=== PATIENT | male | born 1945 | race Hispanic/Latino ===

== ENCOUNTER 2024-11-06 14:32 | Inpatient (IN) | payer OTHER ==
[~2024-11-06] VITALS: Ht 172.7 cm; Wt 83.6 kg
--- NOTE | 2024-11-06 14:39 | ERN ---
ED Note History of Present Illness Stated Complaint: [facility] Chief Complaint: Hypotension Time Seen by MD: 14:36 Dictation: PATIENT IS AN 79-YEAR-OLD MALE COMING IN [facility] A [facility] WITH COMPLAINTS OF HYPOTENSION AND GENERALIZED BODY WEAKNESS. PER THE STAFF AT THE CLINIC, HE WALKED IN TO BE SEEN ON A ROUTINE EXAM WAS NOTED TO BE WEAK BLOOD PRESSURE WAS IN 80 SYSTOLIC. HE HAD NO FEVER NO CHILLS HE COMPLAINTS ONLY OF CHRONIC LOW BACK PAIN. PATIENT LOOKS FRAIL DEBILITATED OFFERS NO OTHER COMPLAINTS EXCEPT BACK PAIN. PARKINSONIAN SHAKES NOTED TO UPPER EXTREMITIES. PATIENT NOTED TO BE PALE Allergies: Coded Allergies: No Known Drug Allergies (Verified Allergy, 03/20/12) Past Medical History RN Note Reviewed/Agreed w/PFSH: Yes Review of System Dictation CONSTITUTIONAL: NEGATIVE EXCEPT FOR HPI GB W HEAD/FACE: NEGATIVE EXCEPT FOR HPI EENT: NEGATIVE EXCEPT FOR HPI RESPIRATORY: NEGATIVE EXCEPT FOR HPI GASTROINTESTINAL/ABDOMINAL: NEGATIVE EXCEPT FOR HPI GENITOURINARY: NEGATIVE EXCEPT FOR HPI MUSCULOSKELETAL: NEGATIVE EXCEPT FOR HPI INTEGUMENTARY: NEGATIVE EXCEPT FOR HPI NEUROLOGICAL/PSYCH: NEGATIVE EXCEPT FOR HPI HEMATOLOGIC/LYMPHATIC: NEGATIVE EXCEPT FOR HPI ALL SYSTEMS NEGATIVE, EXCEPT NOTED ABOVE. 13 POINT REVIEW OF SYSTEMS ASSESSED AND ALL NEGATIVE EXCEPT FOR ABOVE. Initial Vital Sign VS Vital Signs Date Time Temp Pulse Resp B/P (MAP) Pulse Ox O2 Delivery O2 Flow Rate FiO2 11/06/24 14:33 97.9 64 11 115/56 99 Room Air 0 11/06/24 15:21 21 Physical Exam Dictation VITAL SIGNS REVIEWED GENERAL APPEARANCE: ALERT, ORIENTED X 3, PATIENT APPEARS WEAK VERY DEBILITATED HEAD AND FACE: NON-TRAUMATIC. EYES: PERRL, PINK CONJUNCTIVAS, EYELID NO TRAUMA, ANTERIOR CHAMBER WITH ARCUS SENILIS. EARS: PINNAS INTACT AND NO SIGNS OF TRAUMA OR ERYTHEMA EAR CANALS CLEAR AND NO DISCHARGE TM NO ERYTHEMA NOSE: NO DISCHARGE, NO BLEEDING. OROPHARYNX: MOUTH NORMAL, TONGUE PALE, PHARYNX CLEAR,NO ERYTHEMA, TONSILS NO EXUDATES, NO ABSCESSES NOTED, MUCOUS MEMBRANE MOIST NECK: SUPPLE, NON-TENDER, NO THYROMEGALY, NO MASSES, NO JVD, NO BRUITS BREAST:DEFERRED CHEST:NO TENDERNESS, NO CREPITUS, NO PARADOXICAL MOVEMENT, NO RETRACTIONS LUNGS:CLEAR, WELL-VENTILATED, SYMMETRIC, NO RALES, NO WHEEZING, NO RHONCHI, NO STRIDOR, GOOD BREATH SOUNDS BILATERALLY HEART: REGULAR RATE, REGULAR RHYTHM, NO MURMUR, NO GALLOPS VASCULAR: NO PERIPHERAL EDEMA, ABDOMEN: SOFT, POSITIVE BOWEL SOUNDS, NONDISTENDED, NO GUARDING, NONTENDER, NO REBOUND, NO MASSES NO HEPATOMEGALY, NO SPLENOMEGALY, NO 'S SIGN, NO HERNIAS. RECTAL: DEFERRED GENITAL: DEFERRED NEUROLOGICAL: NORMAL SPEECH, MOTOR FUNCTION INTACT, SENSORY FUNCTION INTACT 4/+5 STRENGTH ALL EXTREMITIES MUSCULOSKELETAL: NECK NONTENDER, FULL RANGE OF MOTION, BACK NONTENDER, FULL RANGE OF MOTION, EXTREMITIES: NONTENDER, FULL RANGE OF MOTION SKIN: COLOR PINK, DRY, NO TURGOR, NO RASH, NO LACERATIONS, NO ABRASIONS, NO CONTUSIONS. LYMPHATIC: DEFERRED Results (Laboratory/Radiology) Laboratory/Radiology Laboratory Tests Test 11/06/24 14:58 White Blood Count 7.9 K/uL (4.8-10.8) Red Blood Count 3.67 MIL/uL (4.50-6.20) L Hemoglobin 12.0 g/dL (14.0-18.0) L Hematocrit 37.5 % (42-54) L Mean Corpuscular Volume 102.2 fL (79-99) H Mean Corpuscular Hemoglobin 32.7 pg (27.0-33.0) Mean Corpuscular Hemoglobin Concent 32.0 g/dL (32.0-36.0) Red Cell Distribution Width 15.0 % (11.0-15.5) Platelet Count 257 K/uL (130-400) Mean Platelet Volume 8.8 fL (7.5-10.5) Immature Granulocyte % (Auto) 1.4 % (0-1) H Neutrophils (%) (Auto) 86.0 % (40.0-77.0) H Lymphocytes (%) (Auto) 5.5 % (21.0-51.0) L Monocytes (%) (Auto) 4.8 % (3.0-13.0) Eosinophils (%) (Auto) 1.8 % (0.0-8.0) Basophils (%) (Auto) 0.5 % (0.0-5.0) Neutrophils # (Auto) 6.8 K/uL (1.8-7.7) Lymphocytes # (Auto) 0.4 K/uL (1.0-4.8) L Monocytes # (Auto) 0.4 K/uL (0.1-1.0) Eosinophils # (Auto) 0.14 K/uL (0.00-0.70) Basophils # (Auto) 0.04 K/uL (0.00-0.20) Absolute Immature Granulocyte (auto 0.11 K/uL (0-1) Nucleated Red Blood Cells 0.0 % (0.0-0.19) White Cell Morphology Comment See comments Sodium Level 144 mmol/L (136-145) Potassium Level 4.6 mmol/L (3.5-5.1) Chloride Level 110 mmol/L (101-111) Carbon Dioxide Level 24 mmol/L (21-32) Blood Urea Nitrogen 28 mg/dL (7-18) H Creatinine 1.3 mg/dL (0.5-1.3) Glomerular Filtration Rate Calc 56 mL/min (>90) Random Glucose 128 mg/dL (70-105) H Lactic Acid Level 2.2 mmol/L (0.8-2.5) Total Calcium 7.6 mg/dL (8.5-10.1) L Troponin I High Sensitivity 19 ng/L (4-75) CR Chest, 1 View. CLINICAL HISTORY: CHEST PAIN/SOB COMPARISON: X-ray chest 03/20/2012 FINDINGS: LUNGS: The lungs show no infiltrate or other acute finding. PLEURAL SPACES: No pleural effusion or pneumothorax. MEDIASTINUM: The cardiomediastinal silhouette is within normal limits. Changes of median sternotomy BONES: No aggressive appearing osseous lesion seen. IMPRESSION: No acute cardiopulmonary pathology is evident. /[place] Labs Reviewed?: Yes EKG Comment: 1446/EKG SINUS RHYTHM/HEART RATE 64/AXIS NORMAL EARLY REPOLARIZATION IN SEEN IN THE V2 V3 V4 V5 ED Course ED Course Orders Procedure Category Date Status Time Blood Cult MADGY 11/06/24 In Process 14:37 Lactic Acid LAB 11/06/24 Complete 14:37 Cbc With Differential LAB 11/06/24 Complete 14:37 Troponin I High LAB 11/06/24 Complete Sensitivity 14:37 Urinalysis Profile LAB 11/06/24 Logged 14:37 12 Lead Ekg Tracing- EKG 11/06/24 Logged Technical 14:37 0.9%Nacl 1000ml (Ns PHA 11/06/24 Complete 1000ml) 15:00 Basic Metabolic Panel LAB 11/06/24 Complete 14:37 Chest 1vw RAD 11/06/24 Resulted 14:37 Ceftriaxone 2gm Vial PHA 11/06/24 Complete (Rocephin 2gm Inj) 15:50 Calcium Gluc 1gm PHA 11/06/24 Complete (Calcium Gluc 1gm 17:18 0.9%Nacl 100ml (Ns PHA 11/06/24 Complete 100ml) 17:22 0.9%Nacl 1000ml (Ns PHA 11/06/24 Complete 1000ml) 18:00 Lactic Acid (Removed) LAB 11/06/24 Logged 18:13 Edm Admit Bridge Order ADM 11/06/24 Transmitted 18:17 Current Medications Medications (Trade) Dose Ordered Sig/Brodie Route PRN Reason Start Time Stop Time Status Last Admin Dose Admin Calcium Gluconate (Calcium Gluc 1gm Vial) 1 gm PROTOCOL STAT IVPB 11/06/24 17:18 11/06/24 17:23 DC Ceftriaxone Sodium (Rocephin 2gm Inj) 2 gm ONCE STAT IVPB 11/06/24 15:50 11/06/24 15:52 DC 11/06/24 16:06 Sodium Chloride 100 ml @ 0 mls/hr AD STAT IV 11/06/24 17:22 11/06/24 18:00 DC Sodium Chloride 1,000 ml @ 0 mls/hr ONCE ONCE IV 11/06/24 15:00 11/06/24 15:01 DC 11/06/24 15:15 Sodium Chloride 1,000 ml @ 0 mls/hr Q0M ONCE IV 11/06/24 18:00 11/06/24 18:01 DC Vital Signs Date Time Temp Pulse Resp B/P (MAP) Pulse Ox O2 Delivery O2 Flow Rate FiO2 11/06/24 15:21 98.1 63 19 110/48 99 Room Air* 0 21 11/06/24 14:33 97.9 64 11 115/56 99 Room Air 0 1715/SPOKE WITH PATIENT AND HIS DAUGHTER AT LENGTH REGARDING CLINICAL FINDINGS. THEY ARE AWARE THAT HE HAS GOT STAGE 3 KIDNEY DISEASE VERSUS ACUTE KIDNEY INJURY DEHYDRATION ANEMIA OF CHRONIC RENAL FAILURE AND LACTIC ACID DOSES. THEY ARE AGREEABLE HIM BE ADMITTED TO THE HOSPITAL URINE IS PENDING. ALL QUESTIONS [id number]/ 1820/SPOKE WITH MANUEL FAUSTINP HOSPITALIST REVIEWED EKG LABS AND INTERVENTIONS FOR LACTIC ACID DOSES TO INCLUDE FLUIDS AND ROCEPHIN. IN ADDITION SHE IS AWARE CALCIUM HAS BEEN REPLACED. SHE AGREED TO ADMIT PATIENT HEART Score Response (Comments) Value EKG: Repolarization changes 1 Age: > 65yrs (+2) 2 Risk Factors: 1-2 risk factors (+1) 1 Initial Troponin: Normal limit (0) 0 Total 4 Medical Decision Making MDM MDM: DIFFERENTIAL DIAGNOSIS: ACS/AMI/PNEUMONIA/BRONCHITIS/UTI/ELECTROLYTE IMBALANCE/DEHYDRATION/ARRHYTHMIA RATIONALE: TESTS CONSIDERED AND ORDERED SECONDARY TO SHARED DECISION MAKING INCLUDE: LABS, ECG AND RADIOLOGY PREVIOUS OUTSIDE RECORDS REVIEWED: OLD ER VISITS. RISK OF COMPLICATION AND/OR MORBIDITY OR MORTALITY OF PATIENT MANAGEMENT: NONE MEDICATIONS-PER MEDICATION RECONCILIATION NEED FOR HOSPITALIZATION: PATIENT DOES MEET CRITERIA FOR HOSPITALIZATION. LACTIC ACID DOSES REHYDRATION HEMODYNAMIC STABILIZATION NEED FOR EMERGENCY MAJOR/MINOR SURGERY: NO THERE ARE NO SOCIAL CONCERNS WITH THIS PATIENT. PRESCRIPTION DRUG MANAGEMENT PRESCRIPTIONS WILL INCLUDE SYMPTOMATIC CARE PATIENT'S PRIOR EXTERNAL MEDICAL RECORDS FROM OTHER ER VISITS WERE REVIEWED BY ME INDICATED. PRIOR TESTING AND RESULTS FROM PREVIOUS VISITS WERE REVIEWED. PRIOR TESTS WERE TAKEN INTO ACCOUNT WITH MEDICAL DECISION MAKING AND RESOURCE UTILIZATION, INDEPENDENT HISTORIAN/HISTORIANS WERE USED TO OBTAIN COMPLETE MEDICAL HISTORY. I INDEPENDENTLY INTERPRETED THE TEST THAT WERE PERFORMED, RESULTS WERE REVIEWED BY ME AND CONSIDERED FINDINGS ON RADIOLOGY IF ORDERED. MEDICAL MANAGEMENT AND EXAMINATION INTERPRETATION DISCUSSIONS WERE HAD BY ME WITH OTHER QUALIFIED HEALTHCARE PROFESSIONALS INDICATED FOR THE PATIENT'S CARE. DX & DISP Disposition: Inpatient Decision to Admit Time: 17:16 Departure Impression: Primary Impression: Acute kidney injury Additional Impressions: Anemia of chronic renal failure, stage 3a, Hypocalcemia, Hyperglycemia, Lactic acidosis, Prostate CA Condition: Stable Referrals: BHAVYA CHENG (PCP) Time of Disposition: 17:17 I have reviewed the case, and I agree with, Diagnosis and Plan BINTA GELLER NP Nov 06, 2024 14:39
[2024-11-06 15:06] LABS: IMMATURE GRANULOCYTE ABSOLUTE 0.11 K/uL (0-1); NUCLEATED RED BLOOD CELLS 0.0 % (0.0-0.19); PLATELET COUNT (AUTO) 257 K/uL (130-400); RED BLOOD CELL COUNT(AUTO) 3.67 MIL/uL (4.50-6.20); RED CELL DISTRIBUTION WIDTH 15.0 % (11.0-15.5); WHITE BLOOD COUNT (AUTO) 7.9 K/uL (4.8-10.8)
[2024-11-06] MEDS: 0.9%NACL 1000ML 1,000 ML IV ONE ×2 (15:15→18:53)
[2024-11-06 15:20] LABS: CREATININE 1.3 mg/dL (0.5-1.3); GLOMERULAR FILTR. RATE CALC 56.0 mL/min (>90); GLUCOSE,RANDOM 128.0 mg/dL (70-105); SODIUM SERUM 144.0 mmol/L (136-145); UREA NITROGEN, BLOOD 28.0 mg/dL (7-18)
--- NOTE | 2024-11-06 15:56 | HMCIMG ---
EXAM: CR Chest, 1 View. CLINICAL HISTORY: CHEST PAIN/SOB COMPARISON: X-ray chest 03/20/2012 FINDINGS: LUNGS: The lungs show no infiltrate or other acute finding. PLEURAL SPACES: No pleural effusion or pneumothorax. MEDIASTINUM: The cardiomediastinal silhouette is within normal limits. Changes of median sternotomy BONES: No aggressive appearing osseous lesion seen. IMPRESSION: No acute cardiopulmonary pathology is evident. /[place]
[2024-11-06] MEDS ORDERED: 0.9%NACL 100ML 100 ML IV STA (17:22)
--- NOTE | 2024-11-06 19:30 | HP ---
[facility] HISTORY AND PHYSICAL Date of Service: Nov 06, 2024 Time of Service: 18:56 PCP: Alvarez Olea HISTORY OF PRESENT ILLNESS: This is an 79 year old male past medical history of hypertension, hyperlipidemia, prostate cancer with past surgical history of back surgery times X3, right eye artificial implant and AVR who was brought by EMS coming from [facility] for complaints of hypotension and generalized body weakness. Daughter was at bedside during my evaluation and states that patient has been doing fine and had a follow-up appointment yesterday at the [facility] and today he has another appointment with his primary care doctor at the [facility] and for the past two days patient has been getting up early in the morning not get much rest as per daughter. Today while at the [facility] for routine checkup his systolic blood pressure was in the 80s and patient appeared weak so he was sent to the ED for evaluation.On ER arrival ECG was taken and result showed sinus rhythm HR64 with repolarization abnormalities suggests Ischemia anterolateral .V/S T97.9,HR64,BP115/56,Sat 99%RA. On examination,patient is awake,alert and coherent and appears comfortable .Patient denies fever,nausea,vomiting,dizziness,chest pain,palpitation,cough and shortness of breath.As per daughter ,patient has a good appetite and drinking fluid as well but because of his medication that he is taking for his cancer ,he has been having hot flushes and sweating a lot she said and has been told that it is an expected side effect of his drug as per Onco.Patient also reports being constipated because of his pain meds for his chronic back pain and last BM was 3 days ago and it was a normal in color.Patient denies Kidney problem before.Labs : WBC 7, neutrophils 86, hemoglobin 12, hematocrit 37, platelet count 257. BUN 28, creatinine 1.3, GFR 56, glucose 128 lactic acid 2.2 troponin 19. Chest x- ray no acute cardiopulmonary pathology is evident. While in the ER patient received 2 L NS bolus bolus, Rocephin 2 g IV, calcium replacement of 1 g IV. We will admit patient for further medical management. Without REVIEW OF SYSTEMS CONSTITUTIONAL: Denies fevers, chills, or night sweats. No unintentional weight loss reported. NEUROLOGICAL: Complain of generalized body weakness Denies headache, amaurosis fugax,sensory deficit, vertigo/spinning sensation, gait abnormalities, or lyric mors. ENT: No hearing loss, otalgia, otorrhea, rhinitis, rhinorrhea, hoarseness, or sore throat. CARDIOVASCULAR: Denies any exertional angina, dyspnea on exertion, orthopnea, paroxysmal nocturnal dyspnea, palpitations, life-threatening arrhythmias, claudication. PULMONARY: Denies any shortness of breath, cough, phlegm/sputum, hemoptysis, pleuritic chest pain. SLEEP: Denies morning headaches, daytime somnolence or napping. Denies difficulty falling asleep, staying asleep, waking from sleep. Denies knowledge of snoring. GASTROINTESTINAL: Denies any type of dysphagia to either liquids or solids. Denies nausea, vomiting, pyrosis, early satiety, abdominal pain, diarrhea, constipation, or changes in stool consistency or caliber. Denies coffee-ground emesis, hematemesis, hematochezia, or melanotic stools. GENITOURINARY: Denies frequency, urgency, nocturia, hematuria or incontinence (Storage/Irritative symptoms.) Low urinary stream, straining to void, urinary intermittency or hesitancy, splitting of the voiding stream, terminal dribbling. ENDOCRINOLOGIC: Denies polyuria, polydipsia, polyphagia or heat/cold intolerances. HEMATOLOGIC: Denies thrombophilia/previous clots, or coagulopathy/bleeding disorders. ONCOLOGIC: Denies personal history of malignancy. DERMATOLOGIC: Denies rashes or pruritus. PSYCHIATRIC: Denies any suicidal or homicidal ideation. Denies hallucinations. PAST MEDICAL HISTORY: [ hypertension, hyperlipidemia, prostate cancer ] PAST SURGICAL HISTORY: [ back surgery times X3, right eye artificial implant and AVR ] PAST SOCIAL HISTORY: [ Patient lives with and daughter.Patient reports was a former heavy smoker and alcohol drinker quits 20 years ago.Patient denies recreational drug use ] Coded Allergies: No Known Drug Allergies (Verified Allergy, 03/20/12) PHYSICAL EXAM GENERAL APPEARANCE: The patient is awake, alert, and oriented, in no acute cardiopulmonary distress. NEUROLOGICAL: Cranial nerves II-XII grossly intact. Motor is 5/5 in bilateral upper and lower extremities proximal to distal. No sensory deficits. HEENT: Face is symmetric. Extraocular movement is intact. NECK: Supple. No JVD. No thyromegaly. No submental, submandibular, pre- /postauricular, occipital or supraclavicular lymphadenopathy. CHEST: Normal chest expansion. No Telemetry. LUNGS: Absence of any rales, rhonchi or any wheezing. CARDIOVASCULAR: Regular. S1 and S2 normal. No appreciable rubs, murmurs or gallops. ABDOMEN: Soft, nontender, and nondistended. There is no rebound, voluntary guarding, or rigidity. : Deferred. No Robles. EXTREMITIES: Non-edematous and not cyanotic. No clubbing. Good capillary refill. SKIN: No skin breakdown. Vital Sign (Last 24 Hours) 11/06/24 15:21 Temp 98.1 Pulse 63 Resp 19 B/P (MAP) 110/48 Pulse Ox 99 O2 Delivery Room Air* O2 Flow Rate 0 FiO2 21 LABS: Laboratory: Test 11/06/24 14:58 Range/Units White Blood Count 7.9 4.8-10.8 K/uL Red Blood Count 3.67 L 4.50-6.20 MIL/uL Hemoglobin 12.0 L 14.0-18.0 g/dL Hematocrit 37.5 L 42-54 % Mean Corpuscular Volume 102.2 H 79-99 fL Mean Corpuscular Hemoglobin 32.7 27.0-33.0 pg Mean Corpuscular Hemoglobin Concent 32.0 32.0-36.0 g/dL Red Cell Distribution Width 15.0 11.0-15.5 % Platelet Count 257 130-400 K/uL Mean Platelet Volume 8.8 7.5-10.5 fL Immature Granulocyte % (Auto) 1.4 H 0-1 % Neutrophils (%) (Auto) 86.0 H 40.0-77.0 % Lymphocytes (%) (Auto) 5.5 L 21.0-51.0 % Monocytes (%) (Auto) 4.8 3.0-13.0 % Eosinophils (%) (Auto) 1.8 0.0-8.0 % Basophils (%) (Auto) 0.5 0.0-5.0 % Neutrophils # (Auto) 6.8 1.8-7.7 K/uL Lymphocytes # (Auto) 0.4 L 1.0-4.8 K/uL Monocytes # (Auto) 0.4 0.1-1.0 K/uL Eosinophils # (Auto) 0.14 0.00-0.70 K/uL Basophils # (Auto) 0.04 0.00-0.20 K/uL Absolute Immature Granulocyte (auto 0.11 0-1 K/uL Nucleated Red Blood Cells 0.0 0.0-0.19 % White Cell Morphology Comment See comments Sodium Level 144 136-145 mmol/L Potassium Level 4.6 3.5-5.1 mmol/L Chloride Level 110 101-111 mmol/L Carbon Dioxide Level 24 21-32 mmol/L Blood Urea Nitrogen 28 H 7-18 mg/dL Creatinine 1.3 0.5-1.3 mg/dL Glomerular Filtration Rate Calc 56 >90 mL/min Random Glucose 128 H 70-105 mg/dL Lactic Acid Level 2.2 0.8-2.5 mmol/L Total Calcium 7.6 L 8.5-10.1 mg/dL Troponin I High Sensitivity 19 4-75 ng/L Current Medications Medications (Trade) Dose Ordered Sig/Brodie Route PRN Reason Start Time Stop Time Status Last Admin Dose Admin Calcium Gluconate (Calcium Gluc 1gm Vial) 1 gm PROTOCOL STAT IVPB 11/06/24 17:18 11/06/24 17:23 DC Ceftriaxone Sodium (Rocephin 2gm Inj) 2 gm ONCE STAT IVPB 11/06/24 15:50 11/06/24 15:52 DC 11/06/24 16:06 2 GM Sodium Chloride 100 ml @ 0 mls/hr AD STAT IV 11/06/24 17:22 11/06/24 18:00 DC DIAGNOSTICS / RADIOLOGY: [ ] ASSESSMENT: Acute kidney injury POA Acute anemia POA Transient hypotension-improved POA Prostate cancer POA Right eye artificial implant POA Hyperlipidemia POA Hypertension POA Chronic back pain with surgeries x3 POA Aortic valve replacement POA Constipation POA PLAN: We will admit patient in medical telemetry We will start on heart healthy diet We will start LR @ 75 ml / hr x2 bags and re evaluate Continue Rocephin 1 gram IV daily for empiric coverage We will start on Protonix 40 mg IV daily for GI prophylaxis We will replace electrolytes as needed per protocol We will add prn medication for fever,pain,constipation, nausea and vomiting We will reconcile home meds once medlist available We will check fecal occult blood Follow up U/A and blood culture result and re evaluate ABT Will check orthostatic V/S Q shift x2 We will request labs in am Further orders to follow depending on above results Case discussed with attending physician and came up with above treatment and plan of care. ADVANCED CARE PLANNING 1. Which of the following were discussed? Hospice Care - No Therapeutic options - Yes Advance Directives - No Other discussions - 2. Discussed with who? Patient and daughter 3. Voluntary nature of this service was explained to the patient? Yes 4. Amount of time spent - ___23 min____ 5. Reviewed by Physician? (if this service was performed by NPP) Yes Patient seen and examined by me. Agree with note by ENGINEERING TECH SEE ADDITIONAL ORDERS PER CHART DISCUSSED WITH NURSING STAFF KAMI DUEÑAS [employer] MECHANIC Nov 06, 2024 19:30
[2024-11-06] MEDS: CALCIUM GLUC 1GM/10ML VIAL IVPB STA ×2 (20:13→20:23)
[2024-11-06] MEDS: LACTATED RINGERS 1000ML 1,000 ML IV SCH (21:30)
[2024-11-06 21:53] LABS: ADD UA MICROSCOPIC YES; APPEARANCE,URINE CLOUDY (CLEAR); GLUCOSE, URINE (UA) NEGATIVE (NEGATIVE); LEUKOCYTE ESTERASE ,URINE NEGATIVE Leu/uL (NEGATIVE); NITRATE,URINE NEGATIVE (NEGATIVE); OCCULT BLOOD,URINE MODERATE (NEGATIVE)
[2024-11-06 21:56] LABS: UNCLASSIFIED CRYSTAL 8 /HPF (None Seen)
--- NOTE | 2024-11-06 23:18 | EKG ---
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
[2024-11-07] MEDS ORDERED: TAMS-55 PO (02:08)
[2024-11-07] MEDS ORDERED: DOCU100C33 PO (02:08)
[2024-11-07] MEDS ORDERED: MELA1TAB16 PO (02:08)
[2024-11-07] MEDS ORDERED: LINA290C PO (02:08)
[2024-11-07] MEDS ORDERED: BUSP10TA3 PO (02:08)
[2024-11-07] MEDS ORDERED: OMEP20CA12 PO (02:08)
[2024-11-07] MEDS ORDERED: RAMI10CA76 PO (02:08)
[2024-11-07] MEDS ORDERED: LORA2ORA5 PO (02:30)
[2024-11-07] MEDS ORDERED: HYDR-4060 PO (02:30)
[2024-11-07] MEDS ORDERED: FLUO20TA29 PO (02:30)
[2024-11-07] MEDS ORDERED: CLOP75TA32 PO (02:30)
[2024-11-07] MEDS ORDERED: MIRT-93 PO (02:30)
[2024-11-07] MEDS ORDERED: METO-409 PO (02:30)
[2024-11-07] MEDS ORDERED: ATOR40TA71 PO (02:30)
[2024-11-07] MEDS ORDERED: PRED5TAB PO (02:30)
[2024-11-07] MEDS ORDERED: MORP15TA70 PO (02:30)
[2024-11-07] MEDS ORDERED: FLUO40CA49 PO (02:30)
[2024-11-07] MEDS ORDERED: SENN8.6T32 PO (02:30)
[2024-11-07] MEDS ORDERED: ISOS-58 PO (02:30)
[2024-11-07 05:40] LABS: IMMATURE GRANULOCYTE ABSOLUTE 0.23 K/uL (0-1); NUCLEATED RED BLOOD CELLS 0.0 % (0.0-0.19); PLATELET COUNT (AUTO) 247 K/uL (130-400); RED BLOOD CELL COUNT(AUTO) 3.54 MIL/uL (4.50-6.20); RED CELL DISTRIBUTION WIDTH 14.9 % (11.0-15.5); WHITE BLOOD COUNT (AUTO) 8.7 K/uL (4.8-10.8)
[2024-11-07 06:05] LABS: % IRON SATURATION 27.7 % (30-44); IRON, SERUM 51.0 mcg/dL (65-175)
[2024-11-07 06:15] LABS: TROPONIN I HIGH SENSITIVITY 26.0 ng/L (4-75)
[2024-11-07 06:20] LABS: ASPARTATE AMINOTRANSFERASE 24.0 U/L (10-37); CREATINE KINASE, TOTAL 51.0 U/L (21-232); CREATININE 1.1 mg/dL (0.5-1.3); GLOMERULAR FILTR. RATE CALC 68.0 mL/min (>90); GLUCOSE,RANDOM 81.0 mg/dL (70-105); SODIUM SERUM 144.0 mmol/L (136-145); TOTAL PROTEIN, SERUM 5.7 g/dL (6.0-8.3); UREA NITROGEN, BLOOD 18.0 mg/dL (7-18)
--- NOTE | 2024-11-07 06:43 | NUR ---
CRITICAL LAB RESULT ALK PHOS [id number] REPORTED BY LAB. HOSPITALIST PAGED AT THIS TIME, PENDING CALL BACK
[2024-11-07 08:36] LABS: GAMMA GLUTAMYL TRANSFERASE 18.0 U/L (5-85); PHOSPHORUS 2.7 mg/dL (2.5-4.9)
[2024-11-07 09:32] VITALS: O2SAT 97
[2024-11-07] MEDS ORDERED: MORP15TA9 PO (12:48)
[2024-11-07] MEDS ORDERED: ISOSORBIDE MONONITRATE 20 MG TABLET PO SCH (14:00)
[2024-11-07] MEDS: LISINOPRIL 20 MG TABLET PO SCH (14:07)
[2024-11-07] MEDS: HYDROcodone/APAP 5/325 1 TAB TABLET PO PRN (14:20)
[2024-11-07] MEDS: ISOSORBIDE MONONITRATE 20 MG TABLET PO SCH (14:21)
--- NOTE | 2024-11-07 16:15 | NUR ---
DCP:HOME met with daughter Bettina Dwyre [phone] who was at bedside. Pt currently lives at home with his and daughter. Pt has a wheelchair, walker, cane, commode, and hospital bed at home. Pt's daughter states that she is the pt's 30/08 caregiver that is paid for by the [facility]. PCP is Dr. Pino and uses the [facility] for any RX needs. At DC pt will want to go home and family can assist with transportation. Addendum: 11/07/24 at 1617 by PAULINE PURI SS Amended: Links added.
--- NOTE | 2024-11-07 18:18 | PN ---
[facility] PROGRESS NOTE Date of Service: Nov 07, 2024 Time of Service: 18:03 SUBJECTIVE: This is an 79 year old male past medical history of hypertension, hyperlipidemia, prostate cancer with past surgical history of back surgery times X3, right eye artificial implant and AVR who was brought by EMS coming from [facility] for complaints of hypotension and generalized body weakness. Erin jeimy was at bedside during my evaluation and states that patient has been doing fine and had a follow-up appointment yesterday at the [facility] and today he has another appointment with his primary care doctor at the [facility] and for the past two days patient has been getting up early in the morning not get much rest as per daughter. Today while at the [facility] for routine checkup his systolic blood pressure was in the 80s and patient appeared weak so he was sent to the ED for evaluation.On ER arrival ECG was taken and result showed sinus rhythm HR64 with repolarization abnormalities suggests Ischemia anterolateral .V/S T97.9,HR64,BP115/56,Sat 99%RA. On examination,patient is awake,alert and coherent and appears comfortable .Patient denies fever,nausea,vomiting,dizziness,chest pain,palpitation,cough and shortness of breath.As per daughter ,patient has a good appetite and drinking f luid as well but because of his medication that he is taking for his cancer ,he has been having hot flushes and sweating a lot she said and has been told that it is an expected side effect of his drug as per On[facility].Patient also reports being constipated because of his pain meds for his chronic back pain and last BM was 3 days ago and it was a normal in color.Patient denies Kidney problem before.Labs : WBC 7, neutrophils 86, hemoglobin 12, hematocrit 37, platelet count 257. BUN 28, creatinine 1.3, GFR 56, glucose 128 lactic acid 2.2 troponin 19. Chest x- ray no acute cardiopulmonary pathology is evident. While in the ER patient rece ived 2 L NS bolus bolus, Rocephin 2 g IV, calcium replacement of 1 g IV. The patient is admitted for further management. 11/07/2024: Patient is seen and evaluated in the ER. He complained of pain. His vitals signs are in the normal range. His labs are normal except for Hb is 12.5, HCT is 36 MCV is 101.7, chloride is 112, iron is 51, TIBC 184, %saturation is 27.7 ALP is 1107. We resumed his home meds. Narco is added which relieved the pain. We will continue to monitor his blood pressure and we are also planning to discharge him tomorrow. REVIEW OF SYSTEMS CONSTITUTIONAL: Denies fevers, chills, or night sweats. No unintentional weight loss reported. NEUROLOGICAL: Complain of generalized body weakness Denies headache, amaurosis fugax,sensory deficit, vertigo/spinning sensation, gait abnormalities, or tremors. ENT: No hearing loss, otalgia, otorrhea, rhinitis, rhinorrhea, hoarseness, or sore throat. CARDIOVASCULAR: Denies any exertional angina, dyspnea on exertion, orthopnea, paroxysmal nocturnal dyspnea, palpitations, life-threatening arrhythmias, claudication. PULMONARY: Denies any shortness of breath, cough, phlegm/sputum, hemoptysis, pleuritic chest pain. SLEEP: Denies morning headaches, daytime somnolence or napping. Denies difficulty falling asleep, staying asleep, waking from sleep. Denies knowledge of snoring. GASTROINTESTINAL: Denies any type of dysphagia to either liquids or solids. Denies nausea, vomiting, pyrosis, early satiety, abdominal pain, diarrhea, constipation, or changes in stool consistency or caliber. Denies coffee-ground emesis, hematemesis, hematochezia, or melanotic stools. GENITOURINARY: Denies frequency, urgency, nocturia, hematuria or incontinence (Storage/Irritative symptoms.) Low urinary stream, straining to void, urinary intermittency or hesitancy, splitting of the voiding stream, terminal dribbling. ENDOCRINOLOGIC: Denies polyuria, polydipsia, polyphagia or heat/cold intolerances. HEMATOLOGIC: Denies thrombophilia/previous clots, or coagulopathy/bleeding disorders. ONCOLOGIC: Denies personal history of malignancy. DERMATOLOGIC: Denies rashes or pruritus. PSYCHIATRIC: Denies any suicidal or homicidal ideation. Denies hallucinations. PHYSICAL EXAM GENERAL APPEARANCE: The patient is awake, alert, and oriented, in no acute cardiopulmonary distress. NEUROLOGICAL: Cranial nerves II-XII grossly intact. Motor is 5/5 in bilateral upper and lower extremities proximal to distal. No sensory deficits. HEENT: Face is symmetric. Extraocular movement is intact. NECK: Supple. No JVD. No thyromegaly. No submental, submandibular, pre- /postauricular, occipital or supraclavicular lymphadenopathy. CHEST: Normal chest expansion. No Telemetry. LUNGS: Absence of any rales, rhonchi or any wheezing. CARDIOVASCULAR: Regular. S1 and S2 normal. No appreciable rubs, murmurs or gallops. ABDOMEN: Soft, nontender, and nondistended. There is no rebound, voluntary guarding, or rigidity. : Deferred. No Robles. EXTREMITIES: Non-edematous and not cyanotic. No clubbing. Good capillary refill. SKIN: No skin breakdown. Vital Signs (last 8hr) Date Time Temp Pulse Resp B/P (MAP) Pulse Ox O2 Delivery O2 Flow Rate FiO2 11/07/24 15:49 98.2 80 13 118/56 96 Room Air* 0 21 11/07/24 12:00 63 14 176/60 97 Room Air* 0 21 LABS: Laboratory: Test 11/07/24 05:17 11/06/24 21:45 11/06/24 14:58 Range/Units White Blood Count 8.7 4.8-10.8 K/uL Red Blood Count 3.54 L 4.50-6.20 MIL/uL Hemoglobin 11.5 L 14.0-18.0 g/dL Hematocrit 36.0 L 42-54 % Mean Corpuscular Volume 101.7 H 79-99 fL Mean Corpuscular Hemoglobin 32.5 27.0-33.0 pg Mean Corpuscular Hemoglobin Concent 31.9 L 32.0-36.0 g/dL Red Cell Distribution Width 14.9 11.0-15.5 % Platelet Count 247 130-400 K/uL Mean Platelet Volume 9.1 7.5-10.5 fL Immature Granulocyte % (Auto) 2.6 H 0-1 % Neutrophils (%) (Auto) 82.3 H 40.0-77.0 % Lymphocytes (%) (Auto) 7.8 L 21.0-51.0 % Monocytes (%) (Auto) 5.3 3.0-13.0 % Eosinophils (%) (Auto) 1.4 0.0-8.0 % Basophils (%) (Auto) 0.6 0.0-5.0 % Neutrophils # (Auto) 7.2 1.8-7.7 K/uL Lymphocytes # (Auto) 0.7 L 1.0-4.8 K/uL Monocytes # (Auto) 0.5 0.1-1.0 K/uL Eosinophils # (Auto) 0.12 0.00-0.70 K/uL Basophils # (Auto) 0.05 0.00-0.20 K/uL Absolute Immature Granulocyte (auto 0.23 0-1 K/uL Nucleated Red Blood Cells 0.0 0.0-0.19 % Sodium Level 144 136-145 mmol/L Potassium Level 4.4 3.5-5.1 mmol/L Chloride Level 112 H 101-111 mmol/L Carbon Dioxide Level 22 21-32 mmol/L Blood Urea Nitrogen 18 7-18 mg/dL Creatinine 1.1 0.5-1.3 mg/dL Glomerular Filtration Rate Calc 68 >90 mL/min Random Glucose 81 70-105 mg/dL Lactic Acid Level 1.9 0.8-2.5 mmol/L Total Calcium 7.4 L 8.5-10.1 mg/dL Phosphorus Level 2.7 2.5-4.9 mg/dL Magnesium Level 2.20 1.80-2.40 mg/dL Iron Level 51 L 65-175 mcg/dL Total Iron Binding Capacity 184 L 250-450 mcg/dL Percent Iron Saturation 27.7 L 30-44 % Total Bilirubin 0.4 0.2-1.0 mg/dL Gamma Glutamyl Transpeptidase 18 5-85 U/L Aspartate Amino Transf (AST/SGOT) 24 10-37 U/L Alanine Aminotransferase (ALT/SGPT) 13 12-78 U/L Alkaline Phosphatase 1107 *H 50-136 U/L Total Creatine Kinase 51 21-232 U/L Troponin I High Sensitivity 26 4-75 ng/L Total Protein 5.7 L 6.0-8.3 g/dL Albumin 2.5 L 3.5-5.0 g/dL Vitamin D 25-Hydroxy 20.4 30.0-100.0 ng/mL Urine Color LIGHT-YELLOW YELLOW Urine Appearance CLOUDY H CLEAR Urine pH 5.0 5.0-8.0 Urine Specific Melvin 1.014 1.001-1.031 Urine Protein 10 H NEGATIVE mg/dL Urine Glucose (UA) NEGATIVE NEGATIVE mg/dL Urine Ketones NEGATIVE NEGATIVE mg/dL Urine Occult Blood MODERATE H NEGATIVE Urine Nitrate NEGATIVE NEGATIVE Urine Bilirubin NEGATIVE NEGATIVE mg/dL Urine Urobilinogen 0.2 0.2-1.0 mg/dL Urine Leukocyte Esterase NEGATIVE NEGATIVE [place]/uL Urine RBC 51-100 H 0-1 /HPF Urine WBC 2-5 H 0-1 /HPF Urine Other Crystals (Auto) 8 None Seen /HPF Urine Bacteria RARE None Seen /HPF White Cell Morphology Comment See comments Current Medications Medications (Trade) Dose Ordered Sig/Brodie Route PRN Reason Start Time Stop Time Status Last Admin Dose Admin Acetaminophen/ Hydrocodone Bitart (NORco 5/325MG) 1 tab Q6H PRN PO MODERATE PAIN (4-6) 11/07/24 12:30 11/12/24 12:29 11/07/24 14:20 1 TAB Atorvastatin Calcium (LIPItor 40MG) 40 mg DAILY PO 11/08/24 09:00 12/08/24 08:59 Buspirone HCl (BUspar) 10 mg QID PO 11/07/24 13:00 12/07/24 12:59 11/07/24 14:07 10 MG Calcium Gluconate (Calcium Gluc 1gm Vial) 1 gm PROTOCOL STAT IVPB 11/06/24 17:18 11/06/24 17:23 DC Calcium Gluconate (Calcium Gluc 1gm Vial) 1 gm PROTOCOL STAT IVPB 11/06/24 20:10 11/06/24 20:12 DC 11/06/24 20:23 1 GM Ceftriaxone Sodium (ROCEphine 1G INJ) 1 gm Q24H IVPB 11/07/24 09:00 11/17/24 08:59 11/07/24 10:37 1 GM Ceftriaxone Sodium (Rocephin 2gm Inj) 2 gm ONCE STAT IVPB 11/06/24 15:50 11/06/24 15:52 DC 11/06/24 16:06 2 GM Clopidogrel Bisulfate (plaVIX 75MG) 75 mg DAILY PO 11/08/24 09:00 12/08/24 08:59 Fluoxetine HCl (FLUoxetine HCL 20 MG CAPSULE) 20 mg HS PO 11/07/24 21:00 12/07/24 20:59 Fluoxetine HCl (FLUoxetine HCL 20 MG CAPSULE) 40 mg DAILY PO 11/08/24 09:00 12/08/24 08:59 Home Med (Home Medication) (Melatonin/ Pyridoxine (Melato... HS PO 11/07/24 21:00 12/07/24 20:59 Isosorbide Mononitrate (Ismo) 60 mg AM PO 11/07/24 14:00 12/07/24 13:59 11/07/24 14:21 60 MG Isosorbide Mononitrate (Ismo) 60 mg Q24H PO 11/07/24 14:00 11/07/24 13:54 DC Lactated Ringer's 1,000 ml @ 75 mls/hr [id number] IV 11/06/24 19:30 12/06/24 19:29 11/07/24 10:37 75 MLS/HR Lactulose (Constulose 20gm/ 30ml Udcup) 20 gm BID PRN PO CONSTIPATION 11/06/24 19:30 12/06/24 19:29 Lisinopril (Prinivil 20mg) 20 mg Q24H PO 11/07/24 14:00 12/07/24 13:59 11/07/24 14:07 20 MG Lorazepam (AtiVAN) 0.5 mg HS PO 11/07/24 21:00 12/07/24 20:59 Metoprolol Succinate (TopROL XL) 100 mg Q24H PO 11/07/24 14:00 12/07/24 13:59 11/07/24 14:07 100 MG Mirtazapine (REMeron 15 MG TAB) 30 mg HS PO 11/07/24 21:00 12/07/24 20:59 Morphine Sulfate (MS CONtin 15MG) 15 mg Q12H PRN PO SEVERE PAIN (7-10) 11/07/24 13:00 11/12/24 12:59 Morphine Sulfate (morPHINE 15MG IR TAB) 15 mg [id number] PRN PO pain 11/07/24 11:00 11/07/24 12:39 DC Ondansetron HCl (zoFRAN 4MG INJ) 4 mg Q6H PRN IV NAUSEA/VOMITING 11/06/24 19:30 12/06/24 19:29 Pantoprazole Sodium (PROTonix 40MG INJ) 40 mg DAILY IVP 11/07/24 09:00 12/07/24 08:59 11/07/24 10:37 40 MG Prednisone (deltaSONE/ oraSONE 5MG) 5 mg DAILY PO 11/08/24 09:00 12/08/24 08:59 Sodium Chloride 100 ml @ 0 mls/hr AD STAT IV 11/06/24 17:22 11/06/24 18:00 DC Tamsulosin HCl (FloMAX) 0.4 mg HS PO 11/07/24 21:00 12/07/24 20:59 DIAGNOSTICS / RADIOLOGY: [facility] [address] [place] [id number] IMAGING REPORT Signed PATIENT: JEANINE VILLALTA MR#: [id number] : 1945 SEX: M AGE: 79 LOCATION: [facility] ORDER 37 STATUS: REG REPORT#: [id number] SERVICE 36 REASON: CHEST PAIN/SOB ORDERING PHYSICIAN: BINTA GELLER NP PROCEDURE: CXR1VW - CHEST 1VW EXAM: CR Chest, 1 View. CLINICAL HISTORY: CHEST PAIN/SOB COMPARISON: X-ray chest 03/20/2012 FINDINGS: LUNGS: The lungs show no infiltrate or other acute finding. PLEURAL SPACES: No pleural effusion or pneumothorax. MEDIASTINUM: The cardiomediastinal silhouette is within normal limits. Changes of median sternotomy BONES: No aggressive appearing osseous lesion seen. IMPRESSION: No acute cardiopulmonary pathology is evident. /[place] DICTATED BY: PAULINE ARANA MD DATE: 11/06/241655 ELECTRONICALLY SIGNED BY: PAULINE ARANA MD DATE: 11/06/241655 ASSESSMENT: Acute kidney injury POA Normocytic normochromic anemia POA Hypertension POA Transient hypotension-improved POA Hyperlipidemia POA Prostate cancer POA Chronic back pain with surgeries x3 POA Aortic valve replacement POA Constipation POA Right eye artificial implant POA PLAN: Acute kidney injury POA His blood work show that the BUN is 18 and creatinine is 1.1. Will repeat his labs tomorrow. Normocytic normochromic anemia POA His blood work show that Hb is 11.5, HCT is 36, MCV is 101.7, RDW is 14.9 Iron panel show iron 51, TIBC is 184, % saturation is 27.7. Will repeat his labs tomorrow. Hypertension POA Transient hypotension-improved POA Today his blood pressure is 118/56. He is not having any symptoms. Continue isosorbide dinitrate, metoprolol, lisinopril. Will monitor his blood pressure. We are planning to discharge him tomorrow. Hyperlipidemia POA Continue Atorvastatin and clopidogrel. Prostate cancer POA Chronic back pain with surgeries x3 POA He complained of pain. His pain is controlled with narco. His ALP is 1107. Will repeat his labs tomorrow. Constipation POA Continue lactulose PRN. He is on heart healthy diet. GI prophylaxis with pantoprazole. DVT prophylaxis with SCD. ATTESTATION BY PHYSICIAN I have seen and examined the patient. I reviewed the documentation, medical decision making, and treatment plan as noted by the resident provider above. I agree with the findings and plan of care. Manav Portillo IV, MD, AKSHAY MD Nov 07, 2024 18:18
[2024-11-07 20:08] VITALS: BP 136/56; PULSE 74; RESP 15; TEMP 98.4
[2024-11-07] MEDS: (Melatonin/Pyridoxine (Melatonin 5 mg Tablet) 1 EACH) PO SCH (20:21)
[2024-11-07 21:30] VITALS: BP 164/68; PULSE 69; RESP 17; TEMP 98.3
[2024-11-07 21:58] VITALS: O2SAT 96
[2024-11-07 23:12] VITALS: BP 165/63; PULSE 61; RESP 18; TEMP 98.2
[2024-11-08] VITALS (7 sets, daily range): BP systolic 107–165; BP diastolic 54–75; PULSE 62–76; RESP 16–20; TEMP 97.9–98.7; O2SAT 96–98
[2024-11-08 04:14] LABS: NUCLEATED RED BLOOD CELLS 0.0 % (0.0-0.19); PLATELET COUNT (AUTO) 198.0 K/uL (130-400); RED BLOOD CELL COUNT(AUTO) 3.23 MIL/uL (4.50-6.20); RED CELL DISTRIBUTION WIDTH 14.8 % (11.0-15.5); WHITE BLOOD COUNT (AUTO) 7.7 K/uL (4.8-10.8)
[2024-11-08 04:43] LABS: ASPARTATE AMINOTRANSFERASE 24.0 U/L (10-37); CREATININE 1.1 mg/dL (0.5-1.3); GLOMERULAR FILTR. RATE CALC 68.0 mL/min (>90); GLUCOSE,RANDOM 90.0 mg/dL (70-105); SODIUM SERUM 145.0 mmol/L (136-145); TOTAL PROTEIN, SERUM 5.1 g/dL (6.0-8.3); UREA NITROGEN, BLOOD 15.0 mg/dL (7-18)
--- NOTE | 2024-11-08 12:10 | HMCIMG ---
US VENOUS DOPPLER BILATERAL REASON: right arm swelling COMPARISON: None Technique: Bilateral venous doppler ultrasound was performed with spectral analysis and color flow imaging technique. FINDINGS: There is a normal appearance of the common femoral, deep femoral, the profunda femoris and popliteal veins. Proximal calf veins appear normal as well. There is normal response to compression and augmentation. There is no evidence of deep venous thrombosis. IMPRESSION: Normal bilateral lower extremity venous Doppler ultrasound.
--- NOTE | 2024-11-08 15:28 | PN ---
[facility] PROGRESS NOTE Date of Service: Nov 08, 2024 Time of Service: 15:13 SUBJECTIVE: This is an 79 year old male past medical history of hypertension, hyperlipidemia, prostate cancer with past surgical history of back surgery times X3, right eye artificial implant and AVR who was brought by EMS coming from [facility] for complaints of hypotension and generalized body weakness. Erin jeimy was at bedside during my evaluation and states that patient has been doing fine and had a follow-up appointment yesterday at the [facility] and today he has another appointment with his primary care doctor at the [facility] and for the past two days patient has been getting up early in the morning not get much rest as per daughter. Today while at the [facility] for routine checkup his systolic blood pressure was in the 80s and patient appeared weak so he was sent to the ED for evaluation.On ER arrival ECG was taken and result showed sinus rhythm HR64 with repolarization abnormalities suggests Ischemia anterolateral .V/S T97.9,HR64,BP115/56,Sat 99%RA. On examination,patient is awake,alert and coherent and appears comfortable .Patient denies fever,nausea,vomiting,dizziness,chest pain,palpitation,cough and shortness of breath.As per daughter ,patient has a good appetite and drinking f luid as well but because of his medication that he is taking for his cancer ,he has been having hot flushes and sweating a lot she said and has been told that it is an expected side effect of his drug as per Onco.Patient also reports being constipated because of his pain meds for his chronic back pain and last BM was 3 days ago and it was a normal in color.Patient denies Kidney problem before.Labs : WBC 7, neutrophils 86, hemoglobin 12, hematocrit 37, platelet count 257. BUN 28, creatinine 1.3, GFR 56, glucose 128 lactic acid 2.2 troponin 19. Chest x- ray no acute cardiopulmonary pathology is evident. While in the ER patient rece ived 2 L NS bolus bolus, Rocephin 2 g IV, calcium replacement of 1 g IV. The patient is admitted for further management. 11/07/2024: Patient is seen and evaluated in the ER. He complained of pain. His vitals signs are in the normal range. His labs are normal except for Hb is 12.5, HCT is 36 MCV is 101.7, chloride is 112, iron is 51, TIBC 184, %saturation is 27.7 ALP is 1107. We resumed his home meds. Narco is added which relieved the pain. We will continue to monitor his blood pressure and we are also planning to discharge him tomorrow. 11/08/2024: Patient is seen and evaluated in room 408. He has no symptoms today. His vitals signs are in the normal range. His labs are normal except for Hb is 10.4, HCT is 32.4, MCV is 100.3, ALP is 971. His fecal occult blood is positive. So GI was consulted and we are waiting for their recommendations. He also complained swelling in the left fingers. We did a USG doppler of both upper limbs and it showed no evidence of DVT. REVIEW OF SYSTEMS CONSTITUTIONAL: Swelling of left fingers. Denies fevers, chills, or night sweats. No unintentional weight loss reported. NEUROLOGICAL: Denies headache, amaurosis fugax,sensory deficit, vertig o/spinning sensation, gait abnormalities, or tremors. ENT: No hearing loss, otalgia, otorrhea, rhinitis, rhinorrhea, hoarseness, or sore throat. CARDIOVASCULAR: Denies any exertional angina, dyspnea on exertion, orthopnea, paroxysmal nocturnal dyspnea, palpitations, life-threatening arrhythmias, claudication. PULMONARY: Denies any shortness of breath, cough, phlegm/sputum, hemoptysis, pleuritic chest pain. SLEEP: Denies morning headaches, daytime somnolence or napping. Denies difficulty falling asleep, staying asleep, waking from sleep. Denies knowledge of snoring. GASTROINTESTINAL: Denies any type of dysphagia to either liquids or solids. Denies nausea, vomiting, pyrosis, early satiety, abdominal pain, diarrhea, constipation, or changes in stool consistency or caliber. Denies coffee-ground emesis, hematemesis, hematochezia, or melanotic stools. GENITOURINARY: Denies frequency, urgency, nocturia, hematuria or incontinence (Storage/Irritative symptoms.) Low urinary stream, straining to void, urinary intermittency or hesitancy, splitting of the voiding stream, terminal dribbling. ENDOCRINOLOGIC: Denies polyuria, polydipsia, polyphagia or heat/cold intolerances. HEMATOLOGIC: Denies thrombophilia/previous clots, or coagulopathy/bleeding disorders. ONCOLOGIC: Denies personal history of malignancy. DERMATOLOGIC: Denies rashes or pruritus. PSYCHIATRIC: Denies any suicidal or homicidal ideation. Denies hallucinations. PHYSICAL EXAM GENERAL APPEARANCE: The patient is awake, alert, and oriented, in no acute cardiopulmonary distress. NEUROLOGICAL: Cranial nerves II-XII grossly intact. Motor is 5/5 in bilateral upper and lower extremities proximal to distal. No sensory deficits. HEENT: Face is symmetric. Extraocular movement is intact. NECK: Supple. No JVD. No thyromegaly. No submental, submandibular, pre- /postauricular, occipital or supraclavicular lymphadenopathy. CHEST: Normal chest expansion. No Telemetry. LUNGS: Absence of any rales, rhonchi or any wheezing. CARDIOVASCULAR: Regular. S1 and S2 normal. No appreciable rubs, murmurs or gallops. ABDOMEN: Soft, nontender, and nondistended. There is no rebound, voluntary guarding, or rigidity. : Deferred. No Robles. EXTREMITIES: Swelling of fingers on the left Non-edematous and not cyanotic. No clubbing. Good capillary refill. SKIN: No skin breakdown. Vital Signs (last 8hr) Date Time Temp Pulse Resp B/P (MAP) Pulse Ox O2 Delivery O2 Flow Rate FiO2 11/08/24 11:48 98.6 76 18 107/54 93 Room Air 11/08/24 08:03 98.1 76 18 149/66 96 Room Air LABS: Laboratory: Test 11/08/24 03:59 11/07/24 17:52 11/07/24 05:17 11/06/24 21:45 Range/Units White Blood Count 7.7 4.8-10.8 K/uL Red Blood Count 3.23 L 4.50-6.20 MIL/uL Hemoglobin 10.4 L 14.0-18.0 g/dL Hematocrit 32.4 L 42-54 % Mean Corpuscular Volume 100.3 H 79-99 fL Mean Corpuscular Hemoglobin 32.2 27.0-33.0 pg Mean Corpuscular Hemoglobin Concent 32.1 32.0-36.0 g/dL Red Cell Distribution Width 14.8 11.0-15.5 % Platelet Count 198 130-400 K/uL Mean Platelet Volume 9.0 7.5-10.5 fL Nucleated Red Blood Cells 0.0 0.0-0.19 % Sodium Level 145 136-145 mmol/L Potassium Level 3.8 3.5-5.1 mmol/L Chloride Level 111 101-111 mmol/L Carbon Dioxide Level 23 21-32 mmol/L Blood Urea Nitrogen 15 7-18 mg/dL Creatinine 1.1 0.5-1.3 mg/dL Glomerular Filtration Rate Calc 68 >90 mL/min Random Glucose 90 70-105 mg/dL Total Calcium 7.2 L 8.5-10.1 mg/dL Total Bilirubin 0.4 0.2-1.0 mg/dL Aspartate Amino Transf (AST/SGOT) 24 10-37 U/L Alanine Aminotransferase (ALT/SGPT) 15 12-78 U/L Alkaline Phosphatase 971 *H 50-136 U/L Total Protein 5.1 L 6.0-8.3 g/dL Albumin 2.1 L 3.5-5.0 g/dL Stool Occult Blood POSITIVE H NEGATIVE Immature Granulocyte % (Auto) 2.6 H 0-1 % Neutrophils (%) (Auto) 82.3 H 40.0-77.0 % Lymphocytes (%) (Auto) 7.8 L 21.0-51.0 % Monocytes (%) (Auto) 5.3 3.0-13.0 % Eosinophils (%) (Auto) 1.4 0.0-8.0 % Basophils (%) (Auto) 0.6 0.0-5.0 % Neutrophils # (Auto) 7.2 1.8-7.7 K/uL Lymphocytes # (Auto) 0.7 L 1.0-4.8 K/uL Monocytes # (Auto) 0.5 0.1-1.0 K/uL Eosinophils # (Auto) 0.12 0.00-0.70 K/uL Basophils # (Auto) 0.05 0.00-0.20 K/uL Absolute Immature Granulocyte (auto 0.23 0-1 K/uL Lactic Acid Level 1.9 0.8-2.5 mmol/L Phosphorus Level 2.7 2.5-4.9 mg/dL Magnesium Level 2.20 1.80-2.40 mg/dL Iron Level 51 L 65-175 mcg/dL Total Iron Binding Capacity 184 L 250-450 mcg/dL Percent Iron Saturation 27.7 L 30-44 % Gamma Glutamyl Transpeptidase 18 5-85 U/L Total Creatine Kinase 51 21-232 U/L Troponin I High Sensitivity 26 4-75 ng/L Prostate Specific Ag, Ultra-Sensitv 389.000 H 0.000-4.000 ng/mL Vitamin D 25-Hydroxy 20.4 30.0-100.0 ng/mL Urine Color LIGHT-YELLOW YELLOW Urine Appearance CLOUDY H CLEAR Urine pH 5.0 5.0-8.0 Urine Specific [place] 1.014 1.001-1.031 Urine Protein 10 H NEGATIVE mg/dL Urine Glucose (UA) NEGATIVE NEGATIVE mg/dL Urine Ketones NEGATIVE NEGATIVE mg/dL Urine Occult Blood MODERATE H NEGATIVE Urine Nitrate NEGATIVE NEGATIVE Urine Bilirubin NEGATIVE NEGATIVE mg/dL Urine Urobilinogen 0.2 0.2-1.0 mg/dL Urine Leukocyte Esterase NEGATIVE NEGATIVE [place]/uL Urine RBC 51-100 H 0-1 /HPF Urine WBC 2-5 H 0-1 /HPF Urine Other Crystals (Auto) 8 None Seen /HPF Urine Bacteria RARE None Seen /HPF Current Medications Medications (Trade) Dose Ordered Sig/Brodie Route PRN Reason Start Time Stop Time Status Last Admin Dose Admin Acetaminophen/ Hydrocodone Bitart (NORco 5/325MG) 1 tab Q6H PRN PO MODERATE PAIN (4-6) 11/07/24 12:30 11/12/24 12:29 11/08/24 09:43 1 TAB Atorvastatin Calcium (LIPItor 40MG) 40 mg DAILY PO 11/08/24 09:00 12/08/24 08:59 11/08/24 09:40 40 MG Buspirone HCl (BUspar) 10 mg QID PO 11/07/24 13:00 12/07/24 12:59 11/08/24 14:32 10 MG Calcium Gluconate (Calcium Gluc 1gm Vial) 1 gm PROTOCOL STAT IVPB 11/06/24 17:18 11/06/24 17:23 DC Calcium Gluconate (Calcium Gluc 1gm Vial) 1 gm PROTOCOL STAT IVPB 11/06/24 20:10 11/06/24 20:12 DC 11/06/24 20:23 1 GM Ceftriaxone Sodium (ROCEphine 1G INJ) 1 gm Q24H IVPB 11/07/24 09:00 11/17/24 08:59 11/08/24 09:39 1 GM Ceftriaxone Sodium (Rocephin 2gm Inj) 2 gm ONCE STAT IVPB 11/06/24 15:50 11/06/24 15:52 DC 11/06/24 16:06 2 GM Clopidogrel Bisulfate (plaVIX 75MG) 75 mg DAILY PO 11/08/24 09:00 12/08/24 08:59 Hold Fluoxetine HCl (FLUoxetine HCL 20 MG CAPSULE) 20 mg HS PO 11/07/24 21:00 12/07/24 20:59 11/07/24 20:15 20 MG Fluoxetine HCl (FLUoxetine HCL 20 MG CAPSULE) 40 mg DAILY PO 11/08/24 09:00 12/08/24 08:59 11/08/24 09:41 40 MG Home Med (Home Medication) (Melatonin/ Pyridoxine (Melato... HS PO 11/07/24 21:00 12/07/24 20:59 Isosorbide Mononitrate (Ismo) 60 mg AM PO 11/07/24 14:00 12/07/24 13:59 11/08/24 09:40 60 MG Isosorbide Mononitrate (Ismo) 60 mg Q24H PO 11/07/24 14:00 11/07/24 13:54 DC Lactated Ringer's 1,000 ml @ 75 mls/hr [id number] IV 11/06/24 19:30 12/06/24 19:29 11/07/24 22:19 75 MLS/HR Lactulose (Constulose 20gm/ 30ml Udcup) 20 gm BID PRN PO CONSTIPATION 11/06/24 19:30 12/06/24 19:29 Lisinopril (Prinivil 20mg) 20 mg Q24H PO 11/07/24 14:00 12/07/24 13:59 11/07/24 14:07 20 MG Lorazepam (AtiVAN) 0.5 mg HS PO 11/07/24 21:00 12/07/24 20:59 11/07/24 20:15 0.5 MG Metoprolol Succinate (TopROL XL) 100 mg Q24H PO 11/07/24 14:00 12/07/24 13:59 11/07/24 14:07 100 MG Mirtazapine (REMeron 15 MG TAB) 30 mg HS PO 11/07/24 21:00 12/07/24 20:59 11/07/24 20:15 30 MG Morphine Sulfate (MS CONtin 15MG) 15 mg Q12H PRN PO SEVERE PAIN (7-10) 11/07/24 13:00 11/12/24 12:59 Morphine Sulfate (morPHINE 15MG IR TAB) 15 mg [id number] PRN PO pain 11/07/24 11:00 11/07/24 12:39 DC Ondansetron HCl (zoFRAN 4MG INJ) 4 mg Q6H PRN IV NAUSEA/VOMITING 11/06/24 19:30 12/06/24 19:29 Pantoprazole Sodium (PROTonix 40MG INJ) 40 mg DAILY IVP 11/07/24 09:00 12/07/24 08:59 11/08/24 09:39 40 MG Prednisone (deltaSONE/ oraSONE 5MG) 5 mg DAILY PO 11/08/24 09:00 12/08/24 08:59 11/08/24 09:41 5 MG Sodium Chloride 100 ml @ 0 mls/hr AD STAT IV 11/06/24 17:22 11/06/24 18:00 DC Tamsulosin HCl (FloMAX) 0.4 mg HS PO 11/07/24 21:00 12/07/24 20:59 11/07/24 20:15 0.4 MG DIAGNOSTICS / RADIOLOGY: [place] [address] IMAGING REPORT Signed PATIENT: JEANINE VILLALTA MR#: [id number] : 1945 SEX: M AGE: 79 LOCATION: H ORDER 100 STATUS: ADM IN REPORT#: [id number] SERVICE 100 REASON: right arm swelling ORDERING PHYSICIAN: SHARON LORENZO MD PROCEDURE: VENOUS MARC - US VENOUS DOPPLER BILATERAL US VENOUS DOPPLER BILATERAL REASON: right arm swelling COMPARISON: None Technique: Bilateral venous doppler ultrasound was performed with spectral analysis and color flow imaging technique. FINDINGS: There is a normal appearance of the common femoral, deep femoral, the profunda femoris and popliteal veins. Proximal calf veins appear normal as well. There is normal response to compression and augmentation. There is no evidence of deep venous thrombosis. IMPRESSION: Normal bilateral lower extremity venous Doppler ultrasound. DICTATED BY: GIULIANA WHITNEY MD DATE: 11/08/24 1207 ELECTRONICALLY SIGNED BY: GIULIANA WHITNEY MD DATE: 11/08/24 1210 ASSESSMENT: Acute kidney injury POA Normocytic normochromic anemia POA Positive fecal occult blood Swelling of left fingers Hypertension POA Transient hypotension-improved POA Hyperlipidemia POA Prostate cancer POA Chronic back pain with surgeries x3 POA Aortic valve replacement POA Constipation POA Right eye artificial implant POA PLAN: Acute kidney injury POA His blood work show that the BUN is 15 and creatinine is 1.1. Will repeat his labs tomorrow. Normocytic normochromic anemia POA His blood work show that Hb is 10.4, HCT is 32.4, MCV is 100.3, RDW is 14.8 Iron panel show iron 51, TIBC is 184, % saturation is 27.7. Will repeat his labs tomorrow. Positive fecal occult blood His fecal occult blood is positive. We consulted gastroenterology and we are pending further recommendations from them. Swelling of left fingers He complained of swelling in the left fingers. We did a US of bilateral upper limbs and it show no evidence of DVT. Hypertension POA Transient hypotension-improved POA Today his blood pressure is 107/54. He is not having any symptoms. Continue isosorbide dinitrate, metoprolol, lisinopril. Will monitor his blood pressure. Hyperlipidemia POA Continue Atorvastatin and clopidogrel. Prostate cancer POA Chronic back pain with surgeries x3 POA He complained of pain. His pain is controlled with narco. His ALP is 971. Will repeat his labs tomorrow. Constipation POA Continue lactulose PRN. He is on heart healthy diet. GI prophylaxis with pantoprazole. DVT prophylaxis with SCD. ATTESTATION BY PHYSICIAN I have seen and examined the patient. I reviewed the documentation, medical decision making, and treatment plan as noted by the resident provider above. I agree with the findings and plan of care. Manav Portillo IV, MD, AKSHAY MD Nov 08, 2024 15:28
--- NOTE | 2024-11-08 16:47 | CONS ---
GASTROENTEROLOGY CONSULTATION NOTE Date of Consultation: Nov 08, 2024 Time of Consultation: 16:45 History of Present Illness: 79-year-old male patient who was transferred from the [facility] via EMS with complaints of hypotension and generalized body weakness. Patient with past medical history for hypertension, hyperlipidemia, history of prostate cancer with metastasis to the bone, history of back surgery x3, right eye artificial implant, and AVR. Blood pressure 115/56, pulse 64, temp 97.9. WBC of 7.7, initial hemoglobin of 12 has trended down to 10.4, platelets 188. Chemistries significant for 02/07/2011, calcium of 7.4, alkaline phosphatase of 1107 has trended down to 971. Albumin 2.1. PSA of 389, vitamin-D 20.4. FOBT positive. Blood cultures negative at 48 hour. Chest x-ray negative for any cardiopulmonary pathology as well as the [place] venous Doppler of the bilateral lower extremity. We were consulted for positive fecal occult blood. On exam, patient is awake, alert, and oriented x3 in no acute distress. His respirations are unlabored. Bilateral breath sounds are clear abdomen is soft nontender and nondistended. Patient reports having dark stools. Recommendations for endoscopic evaluation given. All their questions were answered and patient and spouse agreed to proceed with exam. ] ] Review of Systems: CONSTITUTIONAL: No malaise or change in sensation of wellbeing. ENMT: No rhinorrhea, otorrhea, sinus pain, ear ache. CARDIOVASCULAR: No angina, palpitations, orthopnea or paroxysmal dyspnea. RESPIRATORY: No SOB. GASTROINTESTINAL: No abdominal pain, nausea, vomiting, diarrhea, hematemesis, melena or change in the patient's habitual bowel movements consistency/number. GENITOURINARY: No dysuria, hematuria or change in bladder continence. MUSCULOSKELETAL: No new muscle pain or decrease in muscular strength. No new joint swelling, redness or tenderness. SKIN: No new rash. Past Medical History: hypertension, hyperlipidemia, prostate cancer with metastasis to bone ] PAST SURGICAL HISTORY: [ back surgery times X3, right eye artificial implant and AVR ] PAST SOCIAL HISTORY: [ Patient lives with and daughter.Patient reports was a former heavy smoker and alcohol drinker quits 20 years ago.Patient denies recreational drug use ] Coded Allergies: No Known Drug Allergies (Verified Allergy, 03/20/12) Physical Exam: GEN: Awake, alert, oriented in person, time and place, and in no acute distress. HEENT: No rhinorrhea. Oral pharyngeal mucosa is pink, moist and within normal limits. CHEST: Lung auscultation revealed normal breath sounds bilaterally. CARDIAC: Heart sounds are regular. Murmur noted. ABD: Soft, non-tender and not distended. No peritoneal signs on palpation. Normal bowel sounds. EXT: No cyanosis or clubbing. No edema. SKIN: Intact. No rashes. JOINTS: No evidence of synovitis or acute arthritis. NEURO: Alert and oriented to name, place and person. Normal speech. Strength is normal. Vital Sign (Last 24 Hours) 11/08/24 11/08/24 08:00 16:10 Temp 98.8 Pulse 76 Resp 18 B/P (MAP) 117/75 Pulse Ox 93 O2 Delivery Room Air O2 Flow Rate 0 FiO2 21 Intake & Output (last 24hrs) 11/07/24 11/07/24 11/08/24 15:00 23:00 07:00 Output Total 600 ml Balance -600 ml Laboratory: [ ] Laboratory: Test 11/08/24 03:59 11/07/24 17:52 11/07/24 05:17 11/06/24 21:45 Range/Units White Blood Count 7.7 4.8-10.8 K/uL Red Blood Count 3.23 L 4.50-6.20 MIL/uL Hemoglobin 10.4 L 14.0-18.0 g/dL Hematocrit 32.4 L 42-54 % Mean Corpuscular Volume 100.3 H 79-99 fL Mean Corpuscular Hemoglobin 32.2 27.0-33.0 pg Mean Corpuscular Hemoglobin Concent 32.1 32.0-36.0 g/dL Red Cell Distribution Width 14.8 11.0-15.5 % Platelet Count 198 130-400 K/uL Mean Platelet Volume 9.0 7.5-10.5 fL Nucleated Red Blood Cells 0.0 0.0-0.19 % Sodium Level 145 136-145 mmol/L Potassium Level 3.8 3.5-5.1 mmol/L Chloride Level 111 101-111 mmol/L Carbon Dioxide Level 23 21-32 mmol/L Blood Urea Nitrogen 15 7-18 mg/dL Creatinine 1.1 0.5-1.3 mg/dL Glomerular Filtration Rate Calc 68 >90 mL/min Random Glucose 90 70-105 mg/dL Total Calcium 7.2 L 8.5-10.1 mg/dL Total Bilirubin 0.4 0.2-1.0 mg/dL Aspartate Amino Transf (AST/SGOT) 24 10-37 U/L Alanine Aminotransferase (ALT/SGPT) 15 12-78 U/L Alkaline Phosphatase 971 *H 50-136 U/L Total Protein 5.1 L 6.0-8.3 g/dL Albumin 2.1 L 3.5-5.0 g/dL Stool Occult Blood POSITIVE H NEGATIVE Immature Granulocyte % (Auto) 2.6 H 0-1 % Neutrophils (%) (Auto) 82.3 H 40.0-77.0 % Lymphocytes (%) (Auto) 7.8 L 21.0-51.0 % Monocytes (%) (Auto) 5.3 3.0-13.0 % Eosinophils (%) (Auto) 1.4 0.0-8.0 % Basophils (%) (Auto) 0.6 0.0-5.0 % Neutrophils # (Auto) 7.2 1.8-7.7 K/uL Lymphocytes # (Auto) 0.7 L 1.0-4.8 K/uL Monocytes # (Auto) 0.5 0.1-1.0 K/uL Eosinophils # (Auto) 0.12 0.00-0.70 K/uL Basophils # (Auto) 0.05 0.00-0.20 K/uL Absolute Immature Granulocyte (auto 0.23 0-1 K/uL Lactic Acid Level 1.9 0.8-2.5 mmol/L Phosphorus Level 2.7 2.5-4.9 mg/dL Magnesium Level 2.20 1.80-2.40 mg/dL Iron Level 51 L 65-175 mcg/dL Total Iron Binding Capacity 184 L 250-450 mcg/dL Percent Iron Saturation 27.7 L 30-44 % Gamma Glutamyl Transpeptidase 18 5-85 U/L Total Creatine Kinase 51 21-232 U/L Troponin I High Sensitivity 26 4-75 ng/L Prostate Specific Ag, Ultra-Sensitv 389.000 H 0.000-4.000 ng/mL Vitamin D 25-Hydroxy 20.4 30.0-100.0 ng/mL Urine Color LIGHT-YELLOW YELLOW Urine Appearance CLOUDY H CLEAR Urine pH 5.0 5.0-8.0 Urine Specific [place] 1.014 1.001-1.031 Urine Protein 10 H NEGATIVE mg/dL Urine Glucose (UA) NEGATIVE NEGATIVE mg/dL Urine Ketones NEGATIVE NEGATIVE mg/dL Urine Occult Blood MODERATE H NEGATIVE Urine Nitrate NEGATIVE NEGATIVE Urine Bilirubin NEGATIVE NEGATIVE mg/dL Urine Urobilinogen 0.2 0.2-1.0 mg/dL Urine Leukocyte Esterase NEGATIVE NEGATIVE [place]/uL Urine RBC 51-100 H 0-1 /HPF Urine WBC 2-5 H 0-1 /HPF Urine Other Crystals (Auto) 8 None Seen /HPF Urine Bacteria RARE None Seen /HPF Current Medications Medications (Trade) Dose Ordered Sig/Brodie Route PRN Reason Start Time Stop Time Status Last Admin Dose Admin Acetaminophen/ Hydrocodone Bitart (NORco 5/325MG) 1 tab Q6H PRN PO MODERATE PAIN (4-6) 11/07/24 12:30 11/12/24 12:29 11/08/24 09:43 1 TAB Atorvastatin Calcium (LIPItor 40MG) 40 mg DAILY PO 11/08/24 09:00 12/08/24 08:59 11/08/24 09:40 40 MG Buspirone HCl (BUspar) 10 mg QID PO 11/07/24 13:00 12/07/24 12:59 11/08/24 14:32 10 MG Calcium Gluconate (Calcium Gluc 1gm Vial) 1 gm PROTOCOL STAT IVPB 11/06/24 17:18 11/06/24 17:23 DC Calcium Gluconate (Calcium Gluc 1gm Vial) 1 gm PROTOCOL STAT IVPB 11/06/24 20:10 11/06/24 20:12 DC 11/06/24 20:23 1 GM Ceftriaxone Sodium (ROCEphine 1G INJ) 1 gm Q24H IVPB 11/07/24 09:00 11/17/24 08:59 11/08/24 09:39 1 GM Ceftriaxone Sodium (Rocephin 2gm Inj) 2 gm ONCE STAT IVPB 11/06/24 15:50 11/06/24 15:52 DC 11/06/24 16:06 2 GM Clopidogrel Bisulfate (plaVIX 75MG) 75 mg DAILY PO 11/08/24 09:00 12/08/24 08:59 Hold Fluoxetine HCl (FLUoxetine HCL 20 MG CAPSULE) 20 mg HS PO 11/07/24 21:00 12/07/24 20:59 11/07/24 20:15 20 MG Fluoxetine HCl (FLUoxetine HCL 20 MG CAPSULE) 40 mg DAILY PO 11/08/24 09:00 12/08/24 08:59 11/08/24 09:41 40 MG Home Med (Home Medication) (Melatonin/ Pyridoxine (Melato... HS PO 11/07/24 21:00 12/07/24 20:59 Isosorbide Mononitrate (Ismo) 60 mg AM PO 11/07/24 14:00 12/07/24 13:59 11/08/24 09:40 60 MG Isosorbide Mononitrate (Ismo) 60 mg Q24H PO 11/07/24 14:00 11/07/24 13:54 DC Lactated Ringer's 1,000 ml @ 75 mls/hr [id number] IV 11/06/24 19:30 12/06/24 19:29 11/07/24 22:19 75 MLS/HR Lactulose (Constulose 20gm/ 30ml Udcup) 20 gm BID PRN PO CONSTIPATION 11/06/24 19:30 12/06/24 19:29 Lisinopril (Prinivil 20mg) 20 mg Q24H PO 11/07/24 14:00 12/07/24 13:59 11/07/24 14:07 20 MG Lorazepam (AtiVAN) 0.5 mg HS PO 11/07/24 21:00 12/07/24 20:59 11/07/24 20:15 0.5 MG Metoprolol Succinate (TopROL XL) 100 mg Q24H PO 11/07/24 14:00 12/07/24 13:59 11/07/24 14:07 100 MG Mirtazapine (REMeron 15 MG TAB) 30 mg HS PO 11/07/24 21:00 12/07/24 20:59 11/07/24 20:15 30 MG Morphine Sulfate (MS CONtin 15MG) 15 mg Q12H PRN PO SEVERE PAIN (7-10) 11/07/24 13:00 11/12/24 12:59 Morphine Sulfate (morPHINE 15MG IR TAB) 15 mg [id number] PRN PO pain 11/07/24 11:00 11/07/24 12:39 DC Ondansetron HCl (zoFRAN 4MG INJ) 4 mg Q6H PRN IV NAUSEA/VOMITING 11/06/24 19:30 12/06/24 19:29 Pantoprazole Sodium (PROTonix 40MG INJ) 40 mg DAILY IVP 11/07/24 09:00 12/07/24 08:59 11/08/24 09:39 40 MG Prednisone (deltaSONE/ oraSONE 5MG) 5 mg DAILY PO 11/08/24 09:00 12/08/24 08:59 11/08/24 09:41 5 MG Sodium Chloride 100 ml @ 0 mls/hr AD STAT IV 11/06/24 17:22 11/06/24 18:00 DC Tamsulosin HCl (FloMAX) 0.4 mg HS PO 11/07/24 21:00 12/07/24 20:59 11/07/24 20:15 0.4 MG Diagnostics / Radiology: [COPY/PASTE HERE IF NO REPORTS PLEASE DELETE SECTION] Assessment: [Melena Concern for GI bleed Anemia Hypertension] Plan: [Case discussed with Dr. Kelly [Clear fluids for dinner Npo after midnight Plan for EGD in am. Information with risks and benefits of procedure given to patient. All his questions were answer and he agreed to proceed with exam. Continue with Pantoprazole 40mg IV. Please call with questions, concerns, and change in clinical status Thank you for allowing us to be part of this patient's care ] DALE NELSON PROGRAM ATTENDANT Nov 08, 2024 16:47
[2024-11-09] VITALS (20 sets, daily range): BP systolic 121–188; BP diastolic 62–78; PULSE 59–76; RESP 15–20; TEMP 97.1–98.1; O2SAT 94–97
--- NOTE | 2024-11-09 01:22 | CONS ---
GASTROENTEROLOGY CONSULTATION REASON FOR CONSULTATION: GI bleed with hemoccult positive stools, acute anemia and chronic constipation. HISTORY OF PRESENT ILLNESS: The patient is an 79-year-old male with history of hyperlipidemia, hypertension, and prostate cancer metastatic to bone who has undergone radiation therapy for prostate in the past and who is now admitted with generalized weakness, hypertension, and who also has hemoccult positive stool, acute anemia and constipation for which evaluation and management are sought. According to the patient and daughter at bedside, the patient actually had red blood per rectum. He has no abdominal pain, nausea, vomiting, melena, significant weight loss, history of PUD or NSAID use. He has been on Plavix, however. He has had chronic constipation dating back over 2 years. The daughter at bedside reports the patient last had radiation to the prostate about 2 months ago. He has no family history of colon cancer, stomach cancer or IBD. ALLERGIES: No known drug allergies. PAST MEDICAL AND PAST SURGICAL HISTORY: See above also. History of hypertension, hyperlipidemia, prostate cancer now metastatic to bone. The patient has undergone radiation therapy for prostate cancer. He has no history of CAD, SC, CVA, seizure disorder, SC, PUD or asthma, and he has no history of DM. 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 He has had lumbar disk surgery. MEDICATIONS: Clopidogrel which has been on hold, atorvastatin, bisacodyl, mirtazapine, lorazepam, fluoxetine, tamsulosin, isosorbide mononitrate, lisinopril, metoprolol, morphine sulfate, buspirone, hydrocodone bitartrate/acetaminophen, ceftriaxone, pantoprazole, lactulose, and ondansetron. SOCIAL HISTORY: No alcohol use, tobacco use, or illicit drug use. FAMILY HISTORY: No family history of colon cancer, stomach cancer or IBD. REVIEW OF SYSTEMS: CONSTITUTIONAL: The patient has weakness and hematochezia, but no abdominal pain, nausea, or vomiting. OPHTHALMOLOGY: No recent periorbital swelling, redness or drainage. 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 The left eye tears. ENT: No ear pain, tinnitus, hearing loss, nasal congestion, rhinorrhea, sore throat, or voice changes. RESPIRATORY: No wheezes, rhinorrhea, epistaxis, chest congestion, or cough. CARDIOVASCULAR: No chest pain, palpitations, or leg swelling. GENITOURINARY: No dysuria or hematuria. GASTROINTESTINAL: He has been having hematochezia, no abdominal pain, nausea, vomiting, or melena. He has chronic constipation. MUSCULOSKELETAL: He has weakness, difficulty ambulating and actually is nonambulatory now. NEUROLOGY: He has vision loss in the right eye. No hearing loss and has difficulty ambulating with gait abnormality and does not ambulate anymore. ENDOCRINOLOGY: No history of diabetes or thyroid disease, but he has hyperlipidemia. HEMATOLOGY/LYMPHATICS: He has been having hematochezia, has easy bruising. He has no swollen, tender, or palpable lymph node. He has history of prostate cancer metastatic to bone. PHYSICAL EXAMINATION: GENERAL: The patient is an 79-year-old male who appears his stated age, seen resting in bed in no acute respiratory distress. VITAL SIGNS: Blood pressure 165/72, heart rate 70, respirations 20, temperature 97.9 degrees Fahrenheit. SKIN: Warm and dry with pure ecchymotic area of bilateral forearms. HEENT: The patient's head is normocephalic, atraumatic, right eye has prosthesis in place. Left eye has reactive pupil. Sclerae anicteric. Oral mucosa was moist. No obvious lesion. No blood noted. Nasal mucosa showed no epistaxis, septal deviation, or perforation. NECK: No mass or jugular venous distention. No lymphadenopathy. No thyromegaly. LUNGS: Poor inspiratory effort. HEART: S1, S2. No obvious murmurs, rubs, or gallops auscultated. ABDOMEN: Symmetric, soft with active bowel sounds. No hepatomegaly or masses. No tenderness noted. EXTREMITIES: No cyanosis, clubbing or edema. RECTAL: Examination is deferred. LABORATORY DATA: WBC is 7.7, hemoglobin 10.4, hematocrit 32.4, MCV 100.3, platelet count 198. Serum chemistry revealed sodium 145, potassium 3.8, platelet 111, CO2 of 23, BUN 15, creatinine 1.1, GFR 68, random glucose of 90, total calcium of 7.2, phosphorus 2.7 one day ago. Today, bilirubin is 0.4, AST 24, ALT 15, alkaline phosphatase 971, total protein 5.1, albumin of 2.1. PSA . Vitamin D 25-hydroxy was 20.4 one day ago. UA showed light yellow cloudy urine pH 5, specific gravity of 1.014, protein of 10, glucose negative, ketone negative, occult blood moderate, nitrite negative, bilirubin negative, urobilinogen 0.2, leukocyte esterase negative, RBC 51 to 100, WBC 2 to 5, bacteria noted. DIAGNOSTIC DATA: Chest x-ray done 3 days ago showed no acute cardiopulmonary pathology. IMPRESSION: 1. 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 2. Chronic constipation possible from sedentary lifestyle, lack of fiber intake, colon polyp, colon stricture, or colon cancer. 3. Hypertension. 4. Hyperlipidemia. 5. Prostate cancer metastatic to bone. PLAN: 1. Keep on a clear liquid diet. 2. Anti-reflux measures. 3. Recommend EGD for further evaluation and management. 4. Recommend a colonoscopy also. 5. Continue to monitor CBC. Transfuse PRBC as needed to hemoglobin of 7. Dr. Bacon, thank you for allowing me to participate in the care of this patient. TID: [id number] RECEIPT: [id number] cc: Marcelino Bacon MD, Sachin Pino MD
[2024-11-09 04:32] LABS: NUCLEATED RED BLOOD CELLS 0.0 % (0.0-0.19); PLATELET COUNT (AUTO) 185.0 K/uL (130-400); RED BLOOD CELL COUNT(AUTO) 3.14 MIL/uL (4.50-6.20); RED CELL DISTRIBUTION WIDTH 14.9 % (11.0-15.5); WHITE BLOOD COUNT (AUTO) 6.9 K/uL (4.8-10.8)
[2024-11-09 04:54] LABS: ASPARTATE AMINOTRANSFERASE 24.0 U/L (10-37); CREATININE 1.0 mg/dL (0.5-1.3); GLOMERULAR FILTR. RATE CALC 76.0 mL/min (>90); GLUCOSE,RANDOM 86.0 mg/dL (70-105); SODIUM SERUM 147.0 mmol/L (136-145); TOTAL PROTEIN, SERUM 5.1 g/dL (6.0-8.3); UREA NITROGEN, BLOOD 13.0 mg/dL (7-18)
[2024-11-09] MEDS ORDERED: LIDOCAINE PF 100MG/5ML (2%) SYRINGE 5ML ONE (14:42)
--- NOTE | 2024-11-09 15:33 | NUR ---
PATIENT BACK TO UNIT FROM PROCEDURE
--- NOTE | 2024-11-09 17:35 | PN ---
GASTROENTEROLOGY PROGRESS NOTE Date of Visit: Nov 09, 2024 Time of Visit: 17:33 Events / Notes: [ Patient underwent an EGD and was found to have LA grade B reflux esophagitis with no bleeding. Normal duodenal bulb and second portion of duodenum. Acute gastritis noted. Patient is recommended to have colonoscopy in 2 days. ] Review of Systems: CONSTITUTIONAL: No malaise or change in sensation of wellbeing. ENMT: No rhinorrhea, otorrhea, sinus pain, ear ache. CARDIOVASCULAR: No angina, palpitations, orthopnea or paroxysmal dyspnea. RESPIRATORY: No SOB. GASTROINTESTINAL: No abdominal pain, nausea, vomiting, diarrhea, hematemesis, melena or change in the patient's habitual bowel movements consistency/number. GENITOURINARY: No dysuria, hematuria or change in bladder continence. MUSCULOSKELETAL: No new muscle pain or decrease in muscular strength. No new joint swelling, redness or tenderness. SKIN: No new rash. Physical Exam: GEN: Awake, alert, oriented in person, time and place, and in no acute distress. HEENT: No rhinorrhea. Oral pharyngeal mucosa is pink, moist and within normal limits. CHEST: Lung auscultation revealed normal breath sounds bilaterally. CARDIAC: Heart sounds are regular. Murmur noted. ABD: Soft, non-tender and not distended. No peritoneal signs on palpation. Normal bowel sounds. EXT: No cyanosis or clubbing. No edema. SKIN: Intact. No rashes. JOINTS: No evidence of synovitis or acute arthritis. NEURO: Alert and oriented to name, place and person. Normal speech. Strength is normal. Vital Signs (last 8hr) Date Time Temp Pulse Resp B/P (MAP) Pulse Ox O2 Delivery O2 Flow Rate FiO2 11/09/24 17:05 69 17 153/68 Room Air 11/09/24 16:35 59 17 164/69 Room Air 11/09/24 16:20 66 18 169/67 95 Room Air 11/09/24 16:05 72 17 164/73 94 Room Air 11/09/24 15:50 70 17 175/71 94 Room Air 11/09/24 15:35 97.9 71 17 173/75 94 Room Air 11/09/24 15:30 97.2 61 15 169/64 94 Room Air 0.0 21 11/09/24 15:25 97.2 63 15 167/68 94 Room Air 0.0 21 11/09/24 15:20 97.2 67 15 162/75 93 Room Air 0.0 21 11/09/24 15:15 97.2 68 16 165/71 93 Room Air 0.0 11/09/24 15:10 97.2 68 16 156/70 94 Room Air 0.0 21 11/09/24 15:05 97.2 69 16 153/66 94 Room Air 0.0 11/09/24 15:00 97.2 68 16 161/64 94 Room Air 0.0 11/09/24 14:55 97.2 66 16 158/62 94 Room Air 0.0 21 11/09/24 14:55 97.2 68 16 154/78 95 Nasal Cannula 1.0 11/09/24 14:50 97.2 62 15 146/73 98 Nasal Cannula 3.0 11/09/24 14:44 Mask 11/09/24 14:44 Mask 10.0 11/09/24 11:28 97.7 67 17 169/76 95 Room Air Laboratory: [ ] Laboratory: Test 11/09/24 04:25 11/07/24 17:52 Range/Units White Blood Count 6.9 4.8-10.8 K/uL Red Blood Count 3.14 L 4.50-6.20 MIL/uL Hemoglobin 10.2 L 14.0-18.0 g/dL Hematocrit 30.9 L 42-54 % Mean Corpuscular Volume 98.4 79-99 fL Mean Corpuscular Hemoglobin 32.5 27.0-33.0 pg Mean Corpuscular Hemoglobin Concent 33.0 32.0-36.0 g/dL Red Cell Distribution Width 14.9 11.0-15.5 % Platelet Count 185 130-400 K/uL Mean Platelet Volume 9.1 7.5-10.5 fL Nucleated Red Blood Cells 0.0 0.0-0.19 % Sodium Level 147 H 136-145 mmol/L Potassium Level 3.5 3.5-5.1 mmol/L Chloride Level 114 H 101-111 mmol/L Carbon Dioxide Level 25 21-32 mmol/L Blood Urea Nitrogen 13 7-18 mg/dL Creatinine 1.0 0.5-1.3 mg/dL Glomerular Filtration Rate Calc 76 >90 mL/min Random Glucose 86 70-105 mg/dL Total Calcium 7.1 L 8.5-10.1 mg/dL Total Bilirubin 0.4 0.2-1.0 mg/dL Aspartate Amino Transf (AST/SGOT) 24 10-37 U/L Alanine Aminotransferase (ALT/SGPT) 16 12-78 U/L Alkaline Phosphatase 869 *H 50-136 U/L Total Protein 5.1 L 6.0-8.3 g/dL Albumin 2.1 L 3.5-5.0 g/dL Stool Occult Blood POSITIVE H NEGATIVE Current Medications Medications (Trade) Dose Ordered Sig/Brodie Route PRN Reason Start Time Stop Time Status Last Admin Dose Admin Acetaminophen/ Hydrocodone Bitart (NORco 5/325MG) 1 tab Q6H PRN PO MODERATE PAIN (4-6) 11/07/24 12:30 11/12/24 12:29 11/08/24 21:23 1 TAB Atorvastatin Calcium (LIPItor 40MG) 40 mg DAILY PO 11/08/24 09:00 12/08/24 08:59 11/08/24 09:40 40 MG Buspirone HCl (BUspar) 10 mg QID PO 11/07/24 13:00 12/07/24 12:59 11/09/24 17:25 10 MG Calcium Gluconate (Calcium Gluc 1gm Vial) 1 gm PROTOCOL STAT IVPB 11/06/24 17:18 11/06/24 17:23 DC Calcium Gluconate (Calcium Gluc 1gm Vial) 1 gm PROTOCOL STAT IVPB 11/06/24 20:10 11/06/24 20:12 DC 11/06/24 20:23 1 GM Ceftriaxone Sodium (ROCEphine 1G INJ) 1 gm Q24H IVPB 11/07/24 09:00 11/17/24 08:59 11/09/24 08:39 1 GM Ceftriaxone Sodium (Rocephin 2gm Inj) 2 gm ONCE STAT IVPB 11/06/24 15:50 11/06/24 15:52 DC 11/06/24 16:06 2 GM Clopidogrel Bisulfate (plaVIX 75MG) 75 mg DAILY PO 11/08/24 09:00 12/08/24 08:59 Hold Fluoxetine HCl (FLUoxetine HCL 20 MG CAPSULE) 20 mg HS PO 11/07/24 21:00 12/07/24 20:59 11/08/24 21:21 20 MG Fluoxetine HCl (FLUoxetine HCL 20 MG CAPSULE) 40 mg DAILY PO 11/08/24 09:00 12/08/24 08:59 11/08/24 09:41 40 MG Home Med (Home Medication) (Melatonin/ Pyridoxine (Melato... HS PO 11/07/24 21:00 12/07/24 20:59 Isosorbide Mononitrate (Ismo) 60 mg AM PO 11/07/24 14:00 12/07/24 13:59 11/08/24 09:40 60 MG Isosorbide Mononitrate (Ismo) 60 mg Q24H PO 11/07/24 14:00 11/07/24 13:54 DC Lactated Ringer's 1,000 ml @ 75 mls/hr [id number] IV 11/06/24 19:30 12/06/24 19:29 11/07/24 22:19 75 MLS/HR Lactulose (Constulose 20gm/ 30ml Udcup) 20 gm BID PRN PO CONSTIPATION 11/06/24 19:30 12/06/24 19:29 Lisinopril (Prinivil 20mg) 20 mg Q24H PO 11/07/24 14:00 12/07/24 13:59 11/07/24 14:07 20 MG Lorazepam (AtiVAN) 0.5 mg HS PO 11/07/24 21:00 12/07/24 20:59 11/08/24 21:21 0.5 MG Metoprolol Succinate (TopROL XL) 100 mg Q24H PO 11/07/24 14:00 12/07/24 13:59 11/07/24 14:07 100 MG Mirtazapine (REMeron 15 MG TAB) 30 mg HS PO 11/07/24 21:00 12/07/24 20:59 11/08/24 21:21 30 MG Morphine Sulfate (MS CONtin 15MG) 15 mg Q12H PRN PO SEVERE PAIN (7-10) 11/07/24 13:00 11/12/24 12:59 11/09/24 17:26 15 MG Morphine Sulfate (morPHINE 15MG IR TAB) 15 mg [id number] PRN PO pain 11/07/24 11:00 11/07/24 12:39 DC Ondansetron HCl (zoFRAN 4MG INJ) 4 mg Q6H PRN IV NAUSEA/VOMITING 11/06/24 19:30 12/06/24 19:29 Pantoprazole Sodium (PROTonix 40MG INJ) 40 mg DAILY IVP 11/07/24 09:00 12/07/24 08:59 11/09/24 08:39 40 MG Prednisone (deltaSONE/ oraSONE 5MG) 5 mg DAILY PO 11/08/24 09:00 12/08/24 08:59 11/08/24 09:41 5 MG Sodium Chloride 100 ml @ 0 mls/hr AD STAT IV 11/06/24 17:22 11/06/24 18:00 DC Tamsulosin HCl (FloMAX) 0.4 mg HS PO 11/07/24 21:00 12/07/24 20:59 11/08/24 21:20 0.4 MG Diagnostics / Radiology: [COPY/PASTE HERE IF NO REPORTS PLEASE DELETE SECTION] Assessment: [Melena Concern for GI bleed Anemia Hypertension] Plan: [Case discussed with Dr. Kelly [Clear fluids for dinner Npo after midnight Plan for EGD in am. Information with risks and benefits of procedure given to patient. All his questions were answer and he agreed to proceed with exam. Continue with Pantoprazole 40mg IV. Please call with questions, concerns, and change in clinical status Thank you for allowing us to be part of this patient's care ] DALE NELSON [employer] Nov 09, 2024 17:35
--- NOTE | 2024-11-09 17:38 | NUR ---
CLARIFICATION ON ORDERS Spoke with Dr. Whitlock for clarification on written orders. Patient to be on clear liquid diet today and tomorrow. Medications as entered in orders
--- NOTE | 2024-11-09 17:52 | PN ---
[facility] PROGRESS NOTE Date of Service: Nov 09, 2024 Time of Service: 17:40 SUBJECTIVE: This is an 79 year old male past medical history of hypertension, hyperlipidemia, prostate cancer with past surgical history of back surgery times X3, right eye artificial implant and AVR who was brought by EMS [facility] for complaints of hypotension and generalized body weakness. Erin jeimy was at bedside during my evaluation and states that patient has been doing fine and had a follow-up appointment yesterday at the [facility] and today he has another appointment with his primary care doctor [facility] and for the past two days patient has been getting up early in the morning not get much rest as per daughter. Today while at the [facility] for routine checkup his systolic blood pressure was in the 80s and patient appeared weak so he was sent to the ED for evaluation.On ER arrival ECG was taken and result showed sinus rhythm HR64 with repolarization abnormalities suggests Ischemia anterolateral .V/S T97.9,HR64,BP115/56,Sat 99%RA. On examination,patient is awake,alert and coherent and appears comfortable .Patient denies fever,nausea,vomiting,dizziness,chest pain,palpitation,cough and shortness of breath.As per daughter ,patient has a good appetite and drinking f luid as well but because of his medication that he is taking for his cancer ,he has been having hot flushes and sweating a lot she said and has been told that it is an expected side effect of his drug as per [facility].Patient also reports being constipated because of his pain meds for his chronic back pain and last BM was 3 days ago and it was a normal in color.Patient denies Kidney problem before.Labs : WBC 7, neutrophils 86, hemoglobin 12, hematocrit 37, platelet count 257. BUN 28, creatinine 1.3, GFR 56, glucose 128 lactic acid 2.2 troponin 19. Chest x- ray no acute cardiopulmonary pathology is evident. While in the ER patient rece ived 2 L NS bolus bolus, Rocephin 2 g IV, calcium replacement of 1 g IV. The patient is admitted for further management. 11/07/2024: Patient is seen and evaluated in the ER. He complained of pain. His vitals signs are in the normal range. His labs are normal except for Hb is 12.5, HCT is 36 MCV is 101.7, chloride is 112, iron is 51, TIBC 184, %saturation is 27.7 ALP is 1107. We resumed his home meds. Narco is added which relieved the pain. We will continue to monitor his blood pressure and we are also planning to discharge him tomorrow. 11/08/2024: Patient is seen and evaluated in room 408. He has no symptoms today. His vitals signs are in the normal range. His labs are normal except for Hb is 10.4, HCT is 32.4, MCV is 100.3, ALP is 971. His fecal occult blood is positive. So GI was consulted and we are waiting for their recommendations. He also complained swelling in the left fingers. We did a USG doppler of both upper limbs and it showed no evidence of DVT. 11/09/2024: Patient is seen and evaluated in the room 408. He has no symptoms today. His vital signs are in the normal range except for blood pressure is 153/68. His labs are in the normal range except for Hb is 10.2, sodium is 147, chloride is 114, ALP is 869. He underwent a endoscopy today which showed acute gastritis, LA Grade B reflux esophagitis with no bleeding, normal duodenal bulb and 2nd portion of duodenum. Gastroenterology recommended to start clear liquid diet for today, he uses omeprazole 40 mg p.o. daily for 8 weeks, follow up with them in 2 weeks and colonoscopy in 2 days. He is scheduled for a colonoscopy on Tuesday. REVIEW OF SYSTEMS CONSTITUTIONAL: Swelling of left fingers. Denies fevers, chills, or night sweats. No unintentional weight loss reported. NEUROLOGICAL: Denies headache, amaurosis fugax,sensory deficit, ve rtigo/spinning sensation, gait abnormalities, or tremors. ENT: No hearing loss, otalgia, otorrhea, rhinitis, rhinorrhea, hoarseness, or sore throat. CARDIOVASCULAR: Denies any exertional angina, dyspnea on exertion, orthopnea, paroxysmal nocturnal dyspnea, palpitations, life-threatening arrhythmias, claudication. PULMONARY: Denies any shortness of breath, cough, phlegm/sputum, hemoptysis, pleuritic chest pain. SLEEP: Denies morning headaches, daytime somnolence or napping. Denies difficulty falling asleep, staying asleep, waking from sleep. Denies knowledge of snoring. GASTROINTESTINAL: Denies any type of dysphagia to either liquids or solids. Denies nausea, vomiting, pyrosis, early satiety, abdominal pain, diarrhea, constipation, or changes in stool consistency or caliber. Denies coffee-ground emesis, hematemesis, hematochezia, or melanotic stools. GENITOURINARY: Denies frequency, urgency, nocturia, hematuria or incontinence (Storage/Irritative symptoms.) Low urinary stream, straining to void, urinary intermittency or hesitancy, splitting of the voiding stream, terminal dribbling. ENDOCRINOLOGIC: Denies polyuria, polydipsia, polyphagia or heat/cold intolerances. HEMATOLOGIC: Denies thrombophilia/previous clots, or coagulopathy/bleeding disorders. ONCOLOGIC: Denies personal history of malignancy. DERMATOLOGIC: Denies rashes or pruritus. PSYCHIATRIC: Denies any suicidal or homicidal ideation. Denies hallucinations. PHYSICAL EXAM GENERAL APPEARANCE: The patient is awake, alert, and oriented, in no acute cardiopulmonary distress. NEUROLOGICAL: Cranial nerves II-XII grossly intact. Motor is 5/5 in bilateral upper and lower extremities proximal to distal. No sensory deficits. HEENT: Face is symmetric. Extraocular movement is intact. NECK: Supple. No JVD. No thyromegaly. No submental, submandibular, pre- /postauricular, occipital or supraclavicular lymphadenopathy. CHEST: Normal chest expansion. No Telemetry. LUNGS: Absence of any rales, rhonchi or any wheezing. CARDIOVASCULAR: Regular. S1 and S2 normal. No appreciable rubs, murmurs or gallops. ABDOMEN: Soft, nontender, and nondistended. There is no rebound, voluntary guarding, or rigidity. : Deferred. No Robles. EXTREMITIES: Swelling of fingers on the left Non-edematous and not cyanotic. No clubbing. Good capillary refill. SKIN: No skin breakdown. Vital Signs (last 8hr) Date Time Temp Pulse Resp B/P (MAP) Pulse Ox O2 Delivery O2 Flow Rate FiO2 11/09/24 17:05 69 17 153/68 Room Air 11/09/24 16:35 59 17 164/69 Room Air 11/09/24 16:20 66 18 169/67 95 Room Air 11/09/24 16:05 72 17 164/73 94 Room Air 11/09/24 15:50 70 17 175/71 94 Room Air 11/09/24 15:35 97.9 71 17 173/75 94 Room Air 11/09/24 15:30 97.2 61 15 169/64 94 Room Air 0.0 21 11/09/24 15:25 97.2 63 15 167/68 94 Room Air 0.0 21 11/09/24 15:20 97.2 67 15 162/75 93 Room Air 0.0 21 11/09/24 15:15 97.2 68 16 165/71 93 Room Air 0.0 21 11/09/24 15:10 97.2 68 16 156/70 94 Room Air 0.0 21 11/09/24 15:05 97.2 69 16 153/66 94 Room Air 0.0 21 11/09/24 15:00 97.2 68 16 161/64 94 Room Air 0.0 21 11/09/24 14:55 97.2 66 16 158/62 94 Room Air 0.0 21 11/09/24 14:55 97.2 68 16 154/78 95 Nasal Cannula 1.0 22 11/09/24 14:50 97.2 62 15 146/73 98 Nasal Cannula 3.0 28 11/09/24 14:44 Mask 11/09/24 14:44 Mask 10.0 11/09/24 11:28 97.7 67 17 169/76 95 Room Air LABS: Laboratory: Test 11/09/24 04:25 11/07/24 17:52 Range/Units White Blood Count 6.9 4.8-10.8 K/uL Red Blood Count 3.14 L 4.50-6.20 MIL/uL Hemoglobin 10.2 L 14.0-18.0 g/dL Hematocrit 30.9 L 42-54 % Mean Corpuscular Volume 98.4 79-99 fL Mean Corpuscular Hemoglobin 32.5 27.0-33.0 pg Mean Corpuscular Hemoglobin Concent 33.0 32.0-36.0 g/dL Red Cell Distribution Width 14.9 11.0-15.5 % Platelet Count 185 130-400 K/uL Mean Platelet Volume 9.1 7.5-10.5 fL Nucleated Red Blood Cells 0.0 0.0-0.19 % Sodium Level 147 H 136-145 mmol/L Potassium Level 3.5 3.5-5.1 mmol/L Chloride Level 114 H 101-111 mmol/L Carbon Dioxide Level 25 21-32 mmol/L Blood Urea Nitrogen 13 7-18 mg/dL Creatinine 1.0 0.5-1.3 mg/dL Glomerular Filtration Rate Calc 76 >90 mL/min Random Glucose 86 70-105 mg/dL Total Calcium 7.1 L 8.5-10.1 mg/dL Total Bilirubin 0.4 0.2-1.0 mg/dL Aspartate Amino Transf (AST/SGOT) 24 10-37 U/L Alanine Aminotransferase (ALT/SGPT) 16 12-78 U/L Alkaline Phosphatase 869 *H 50-136 U/L Total Protein 5.1 L 6.0-8.3 g/dL Albumin 2.1 L 3.5-5.0 g/dL Stool Occult Blood POSITIVE H NEGATIVE Current Medications Medications (Trade) Dose Ordered Sig/Brodie Route PRN Reason Start Time Stop Time Status Last Admin Dose Admin Acetaminophen/ Hydrocodone Bitart (NORco 5/325MG) 1 tab Q6H PRN PO MODERATE PAIN (4-6) 11/07/24 12:30 11/12/24 12:29 11/08/24 21:23 1 TAB Atorvastatin Calcium (LIPItor 40MG) 40 mg DAILY PO 11/08/24 09:00 12/08/24 08:59 11/08/24 09:40 40 MG Buspirone HCl (BUspar) 10 mg QID PO 11/07/24 13:00 12/07/24 12:59 11/09/24 17:25 10 MG Calcium Gluconate (Calcium Gluc 1gm Vial) 1 gm PROTOCOL STAT IVPB 11/06/24 17:18 11/06/24 17:23 DC Calcium Gluconate (Calcium Gluc 1gm Vial) 1 gm PROTOCOL STAT IVPB 11/06/24 20:10 11/06/24 20:12 DC 11/06/24 20:23 1 GM Ceftriaxone Sodium (ROCEphine 1G INJ) 1 gm Q24H IVPB 11/07/24 09:00 11/17/24 08:59 11/09/24 08:39 1 GM Ceftriaxone Sodium (Rocephin 2gm Inj) 2 gm ONCE STAT IVPB 11/06/24 15:50 11/06/24 15:52 DC 11/06/24 16:06 2 GM Clopidogrel Bisulfate (plaVIX 75MG) 75 mg DAILY PO 11/08/24 09:00 12/08/24 08:59 Hold Fluoxetine HCl (FLUoxetine HCL 20 MG CAPSULE) 20 mg HS PO 11/07/24 21:00 12/07/24 20:59 11/08/24 21:21 20 MG Fluoxetine HCl (FLUoxetine HCL 20 MG CAPSULE) 40 mg DAILY PO 11/08/24 09:00 12/08/24 08:59 11/08/24 09:41 40 MG Home Med (Home Medication) (Melatonin/ Pyridoxine (Melato... HS PO 11/07/24 21:00 12/07/24 20:59 Isosorbide Mononitrate (Ismo) 60 mg AM PO 11/07/24 14:00 12/07/24 13:59 11/08/24 09:40 60 MG Isosorbide Mononitrate (Ismo) 60 mg Q24H PO 11/07/24 14:00 11/07/24 13:54 DC Lactated Ringer's 1,000 ml @ 75 mls/hr [id number] IV 11/06/24 19:30 12/06/24 19:29 11/07/24 22:19 75 MLS/HR Lactulose (Constulose 20gm/ 30ml Udcup) 20 gm BID PRN PO CONSTIPATION 11/06/24 19:30 12/06/24 19:29 Lisinopril (Prinivil 20mg) 20 mg Q24H PO 11/07/24 14:00 12/07/24 13:59 11/07/24 14:07 20 MG Lorazepam (AtiVAN) 0.5 mg HS PO 11/07/24 21:00 12/07/24 20:59 11/08/24 21:21 0.5 MG Metoprolol Succinate (TopROL XL) 100 mg Q24H PO 11/07/24 14:00 12/07/24 13:59 11/07/24 14:07 100 MG Mirtazapine (REMeron 15 MG TAB) 30 mg HS PO 11/07/24 21:00 12/07/24 20:59 11/08/24 21:21 30 MG Morphine Sulfate (MS CONtin 15MG) 15 mg Q12H PRN PO SEVERE PAIN (7-10) 11/07/24 13:00 11/12/24 12:59 11/09/24 17:26 15 MG Morphine Sulfate (morPHINE 15MG IR TAB) 15 mg [id number] PRN PO pain 11/07/24 11:00 11/07/24 12:39 DC Morphine Sulfate (morPHINE 2MG SYG) 1 mg Q4H PRN IVP SEVERE PAIN (7-10) 11/09/24 17:30 11/16/24 17:29 UNV Ondansetron HCl (zoFRAN 4MG INJ) 4 mg Q6H PRN IV NAUSEA/VOMITING 11/06/24 19:30 12/06/24 19:29 Pantoprazole Sodium (PROTonix 40MG INJ) 40 mg DAILY IVP 11/07/24 09:00 12/07/24 08:59 11/09/24 08:39 40 MG Prednisone (deltaSONE/ oraSONE 5MG) 5 mg DAILY PO 11/08/24 09:00 12/08/24 08:59 11/08/24 09:41 5 MG Sodium Chloride 100 ml @ 0 mls/hr AD STAT IV 11/06/24 17:22 11/06/24 18:00 DC Tamsulosin HCl (FloMAX) 0.4 mg HS PO 11/07/24 21:00 12/07/24 20:59 11/08/24 21:20 0.4 MG DIAGNOSTICS / RADIOLOGY: [ ] ASSESSMENT: Acute kidney injury POA Normocytic normochromic anemia POA Positive fecal occult blood Swelling of left fingers Hypertension POA Transient hypotension-improved POA Hyperlipidemia POA Prostate cancer POA Chronic back pain with surgeries x3 POA Aortic valve replacement POA Constipation POA Right eye artificial implant POA PLAN: Acute kidney injury POA His blood work show that the BUN is 13 and creatinine is 1.0. Will repeat his labs tomorrow. Normocytic normochromic anemia POA His blood work show that Hb is 10.2, HCT is 30.9, MCV is 98.4, RDW is 14.9 Iron panel show iron 51, TIBC is 184, % saturation is 27.7. Will repeat his labs tomorrow. Positive fecal occult blood His fecal occult blood is positive. We consulted gastroenterology and they recommended endoscopy. He underwent a endoscopy today which showed acute gastritis, LA Grade B reflux esophagitis with no bleeding, normal duodenal bulb and 2nd portion of duodenum. Gastroenterology recommended to start clear liquid diet for today, he uses omeprazole 40 mg p.o. daily for 8 weeks, follow up with them in 2 weeks and colonoscopy in 2 days. He is scheduled for a colonoscopy on Tuesday. Swelling of left fingers He complained of swelling in the left fingers. We did a US of bilateral upper limbs and it show no evidence of DVT. Hypertension POA Transient hypotension-improved POA Today his blood pressure is 153/68. He is not having any symptoms. Continue isosorbide dinitrate, metoprolol, lisinopril. Will monitor his blood pressure. Hyperlipidemia POA Continue Atorvastatin and clopidogrel. Prostate cancer POA Chronic back pain with surgeries x3 POA He complained of pain. His pain is controlled with narco. His ALP is 869. Will repeat his labs tomorrow. Constipation POA Continue lactulose PRN. He is on heart healthy diet. GI prophylaxis with pantoprazole. DVT prophylaxis with SCD. ATTESTATION BY PHYSICIAN I have seen and examined the patient. I reviewed the documentation, medical decision making, and treatment plan as noted by the resident provider above. I agree with the findings and plan of care. Manav Portillo IV, MD, AKSHAY MD Nov 09, 2024 17:52
[2024-11-09] MEDS: LACTULOSE 20 GM/30 ML UDCUP PO SCH ×3 (18:06→22:20)
[2024-11-10] VITALS (7 sets, daily range): BP systolic 94–142; BP diastolic 51–74; PULSE 71–99; RESP 15–18; TEMP 97.6–98.3; O2SAT 94
[2024-11-10 04:56] LABS: NUCLEATED RED BLOOD CELLS 0.0 % (0.0-0.19); PLATELET COUNT (AUTO) 176.0 K/uL (130-400); RED BLOOD CELL COUNT(AUTO) 3.44 MIL/uL (4.50-6.20); RED CELL DISTRIBUTION WIDTH 14.8 % (11.0-15.5); WHITE BLOOD COUNT (AUTO) 7.3 K/uL (4.8-10.8)
[2024-11-10 05:33] LABS: CREATININE 1.0 mg/dL (0.5-1.3); GLOMERULAR FILTR. RATE CALC 76.0 mL/min (>90); GLUCOSE,RANDOM 73.0 mg/dL (70-105); SODIUM SERUM 146.0 mmol/L (136-145); UREA NITROGEN, BLOOD 10.0 mg/dL (7-18)
[2024-11-10] MEDS: LACTULOSE 20 GM/30 ML UDCUP PO SCH ×3 (07:44→11:51)
[2024-11-10] MEDS: PEG 3350/NA SULF,BICARB,CL/KCL 4000 ML SOLN PO SCH (14:49)
[2024-11-10] MEDS: DEXTROSE 5%-WATER 1,000 ML IV ONE (14:50)
--- NOTE | 2024-11-10 15:53 | PN ---
[facility] PROGRESS NOTE Date of Service: Nov 10, 2024 Time of Service: 15:44 SUBJECTIVE: This is an 79 year old male past medical history of hypertension, hyperlipidemia, prostate cancer with past surgical history of back surgery times X3, right eye artificial implant and AVR who was brought by EMS coming from [facility] for complaints of hypotension and generalized body weakness. Erin jeimy was at bedside during my evaluation and states that patient has been doing fine and had a follow-up appointment yesterday at the [facility] and today he has another appointment with his primary care doctor at the [facility] and for the past two days patient has been getting up early in the morning not get much rest as per daughter. Today while at the [facility] for routine checkup his systolic blood pressure was in the 80s and patient appeared weak so he was sent to the ED for evaluation.On ER arrival ECG was taken and result showed sinus rhythm HR64 with repolarization abnormalities suggests Ischemia anterolateral .V/S T97.9,HR64,BP115/56,Sat 99%RA. On examination,patient is awake,alert and coherent and appears comfortable .Patient denies fever,nausea,vomiting,dizziness,chest pain,palpitation,cough and shortness of breath.As per daughter ,patient has a good appetite and drinking f luid as well but because of his medication that he is taking for his cancer ,he has been having hot flushes and sweating a lot she said and has been told that it is an expected side effect of his drug as per On[facility].Patient also reports being constipated because of his pain meds for his chronic back pain and last BM was 3 days ago and it was a normal in color.Patient denies Kidney problem before.Labs : WBC 7, neutrophils 86, hemoglobin 12, hematocrit 37, platelet count 257. BUN 28, creatinine 1.3, GFR 56, glucose 128 lactic acid 2.2 troponin 19. Chest x- ray no acute cardiopulmonary pathology is evident. While in the ER patient rece ived 2 L NS bolus bolus, Rocephin 2 g IV, calcium replacement of 1 g IV. The patient is admitted for further management. 11/07/2024: Patient is seen and evaluated in the ER. He complained of pain. His vitals signs are in the normal range. His labs are normal except for Hb is 12.5, HCT is 36 MCV is 101.7, chloride is 112, iron is 51, TIBC 184, %saturation is 27.7 ALP is 1107. We resumed his home meds. Narco is added which relieved the pain. We will continue to monitor his blood pressure and we are also planning to discharge him tomorrow. 11/08/2024: Patient is seen and evaluated in room 408. He has no symptoms today. His vitals signs are in the normal range. His labs are normal except for Hb is 10.4, HCT is 32.4, MCV is 100.3, ALP is 971. His fecal occult blood is positive. So GI was consulted and we are waiting for their recommendations. He also complained swelling in the left fingers. We did a USG doppler of both upper limbs and it showed no evidence of DVT. 11/09/2024: Patient is seen and evaluated in the room 408. He has no symptoms today. His vital signs are in the normal range except for blood pressure is 153/68. His labs are in the normal range except for Hb is 10.2, sodium is 147, chloride is 114, ALP is 869. He underwent a endoscopy today which showed acute gastritis, LA Grade B reflux esophagitis with no bleeding, normal duodenal bulb and 2nd portion of duodenum. Gastroenterology recommended to start clear liquid diet for today, he uses omeprazole 40 mg p.o. daily for 8 weeks, follow up with them in 2 weeks and colonoscopy in 2 days. He is scheduled for a colonoscopy on Tuesday11/10/2024: Patient is seen and evaluated in the room 408. He has no symptoms today. His vitals are in the normal range. His labs are normal except for Hb is 11, sodium is 146, ALP is 902, potassium is 3.4. He is scheduled for a colonoscopy tomorrow. REVIEW OF SYSTEMS CONSTITUTIONAL: Swelling of left fingers. Denies fevers, chills, or night sweats. No unintentional weight loss reported. NEUROLOGICAL: Denies headache, amaurosis fugax,sensory deficit, vertigo/ spinning sensation, gait abnormalities, or tremors. ENT: No hearing loss, otalgia, otorrhea, rhinitis, rhinorrhea, hoarseness, or sore throat. CARDIOVASCULAR: Denies any exertional angina, dyspnea on exertion, orthopnea, paroxysmal nocturnal dyspnea, palpitations, life-threatening arrhythmias, claudication. PULMONARY: Denies any shortness of breath, cough, phlegm/sputum, hemoptysis, pleuritic chest pain. SLEEP: Denies morning headaches, daytime somnolence or napping. Denies difficulty falling asleep, staying asleep, waking from sleep. Denies knowledge of snoring. GASTROINTESTINAL: Denies any type of dysphagia to either liquids or solids. Denies nausea, vomiting, pyrosis, early satiety, abdominal pain, diarrhea, constipation, or changes in stool consistency or caliber. Denies coffee-ground emesis, hematemesis, hematochezia, or melanotic stools. GENITOURINARY: Denies frequency, urgency, nocturia, hematuria or incontinence (Storage/Irritative symptoms.) Low urinary stream, straining to void, urinary intermittency or hesitancy, splitting of the voiding stream, terminal dribbling. ENDOCRINOLOGIC: Denies polyuria, polydipsia, polyphagia or heat/cold intolerances. HEMATOLOGIC: Denies thrombophilia/previous clots, or coagulopathy/bleeding disorders. ONCOLOGIC: Denies personal history of malignancy. DERMATOLOGIC: Denies rashes or pruritus. PSYCHIATRIC: Denies any suicidal or homicidal ideation. Denies hallucinations. PHYSICAL EXAM GENERAL APPEARANCE: The patient is awake, alert, and oriented, in no acute cardiopulmonary distress. NEUROLOGICAL: Cranial nerves II-XII grossly intact. Motor is 5/5 in bilateral upper and lower extremities proximal to distal. No sensory deficits. HEENT: Face is symmetric. Extraocular movement is intact. NECK: Supple. No JVD. No thyromegaly. No submental, submandibular, pre- /postauricular, occipital or supraclavicular lymphadenopathy. CHEST: Normal chest expansion. No Telemetry. LUNGS: Absence of any rales, rhonchi or any wheezing. CARDIOVASCULAR: Regular. S1 and S2 normal. No appreciable rubs, murmurs or gallops. ABDOMEN: Soft, nontender, and nondistended. There is no rebound, voluntary guarding, or rigidity. : Deferred. No Robles. EXTREMITIES: Swelling of fingers on the left Non-edematous and not cyanotic. No clubbing. Good capillary refill. SKIN: No skin breakdown. Vital Signs (last 8hr) Date Time Temp Pulse Resp B/P (MAP) Pulse Ox O2 Delivery O2 Flow Rate FiO2 11/10/24 12:00 98.2 98 16 94/51 93 Room Air 11/10/24 08:00 98.1 77 15 115/74 94 Room Air 11/10/24 08:00 94 Room Air* 0 21 LABS: Laboratory: Test 11/10/24 04:44 11/09/24 04:25 Range/Units White Blood Count 7.3 4.8-10.8 K/uL Red Blood Count 3.44 L 4.50-6.20 MIL/uL Hemoglobin 11.0 L 14.0-18.0 g/dL Hematocrit 34.5 L 42-54 % Mean Corpuscular Volume 100.3 H 79-99 fL Mean Corpuscular Hemoglobin 32.0 27.0-33.0 pg Mean Corpuscular Hemoglobin Concent 31.9 L 32.0-36.0 g/dL Red Cell Distribution Width 14.8 11.0-15.5 % Platelet Count 176 130-400 K/uL Mean Platelet Volume 9.2 7.5-10.5 fL Nucleated Red Blood Cells 0.0 0.0-0.19 % Sodium Level 146 H 136-145 mmol/L Potassium Level 3.4 L 3.5-5.1 mmol/L Chloride Level 112 H 101-111 mmol/L Carbon Dioxide Level 23 21-32 mmol/L Blood Urea Nitrogen 10 7-18 mg/dL Creatinine 1.0 0.5-1.3 mg/dL Glomerular Filtration Rate Calc 76 >90 mL/min Random Glucose 73 70-105 mg/dL Total Calcium 7.2 L 8.5-10.1 mg/dL Alkaline Phosphatase 902 *H 50-136 U/L Total Bilirubin 0.4 0.2-1.0 mg/dL Aspartate Amino Transf (AST/SGOT) 24 10-37 U/L Alanine Aminotransferase (ALT/SGPT) 16 12-78 U/L Total Protein 5.1 L 6.0-8.3 g/dL Albumin 2.1 L 3.5-5.0 g/dL Current Medications Medications (Trade) Dose Ordered Sig/Brodie Route PRN Reason Start Time Stop Time Status Last Admin Dose Admin Acetaminophen/ Hydrocodone Bitart (NORco 5/325MG) 1 tab Q6H PRN PO MODERATE PAIN (4-6) 11/07/24 12:30 11/12/24 12:29 11/09/24 18:10 1 TAB Atorvastatin Calcium (LIPItor 40MG) 40 mg DAILY PO 11/08/24 09:00 12/08/24 08:59 11/10/24 09:21 40 MG Bisacodyl (DulcoLAX 5MG TAB) 10 mg ONCE@1999 PO 11/09/24 20:00 11/09/24 22:00 DC 11/09/24 20:23 10 MG Bisacodyl (DulcoLAX 5MG TAB) 10 mg ONCE@1999 PO 11/10/24 20:00 12/10/24 19:59 Buspirone HCl (BUspar) 10 mg QID PO 11/07/24 13:00 12/07/24 12:59 11/10/24 09:21 10 MG Calcium Gluconate (Calcium Gluc 1gm Vial) 1 gm PROTOCOL STAT IVPB 11/06/24 17:18 11/06/24 17:23 DC Calcium Gluconate (Calcium Gluc 1gm Vial) 1 gm PROTOCOL STAT IVPB 11/06/24 20:10 11/06/24 20:12 DC 11/06/24 20:23 1 GM Ceftriaxone Sodium (ROCEphine 1G INJ) 1 gm Q24H IVPB 11/07/24 09:00 11/17/24 08:59 11/10/24 09:22 1 GM Ceftriaxone Sodium (Rocephin 2gm Inj) 2 gm ONCE STAT IVPB 11/06/24 15:50 11/06/24 15:52 DC 11/06/24 16:06 2 GM Clopidogrel Bisulfate (plaVIX 75MG) 75 mg DAILY PO 11/08/24 09:00 12/08/24 08:59 Hold Fluoxetine HCl (FLUoxetine HCL 20 MG CAPSULE) 20 mg HS PO 11/07/24 21:00 12/07/24 20:59 11/09/24 20:22 20 MG Fluoxetine HCl (FLUoxetine HCL 20 MG CAPSULE) 40 mg DAILY PO 11/08/24 09:00 12/08/24 08:59 11/10/24 09:21 40 MG Home Med (Home Medication) (Melatonin/ Pyridoxine (Melato... HS PO 11/07/24 21:00 12/07/24 20:59 Isosorbide Mononitrate (Ismo) 60 mg AM PO 11/07/24 14:00 12/07/24 13:59 11/10/24 09:21 60 MG Isosorbide Mononitrate (Ismo) 60 mg Q24H PO 11/07/24 14:00 11/07/24 13:54 DC Lactated Ringer's 1,000 ml @ 75 mls/hr [id number] IV 11/06/24 19:30 12/06/24 19:29 11/07/24 22:19 75 MLS/HR Lactulose (Constulose 20gm/ 30ml Udcup) 20 gm BID PRN PO CONSTIPATION 11/06/24 19:30 12/06/24 19:29 Lactulose (Constulose 20gm/ 30ml Udcup) 20 gm ONCE@0700 PO 11/10/24 07:00 11/10/24 09:00 DC 11/10/24 07:44 20 GM Lactulose (Constulose 20gm/ 30ml Udcup) 20 gm ONCE@0900 PO 11/10/24 09:00 11/10/24 11:00 DC 11/10/24 09:20 20 GM Lactulose (Constulose 20gm/ 30ml Udcup) 20 gm ONCE@1100 PO 11/10/24 11:00 11/10/24 13:00 DC 11/10/24 11:51 20 GM Lactulose (Constulose 20gm/ 30ml Udcup) 20 gm ONCE@1800 PO 11/09/24 18:00 11/09/24 20:00 DC 11/09/24 18:06 20 GM Lactulose (Constulose 20gm/ 30ml Udcup) 20 gm ONCE@2000 PO 11/09/24 20:00 11/09/24 22:00 DC 11/09/24 20:23 20 GM Lactulose (Constulose 20gm/ 30ml Udcup) 20 gm ONCE@2200 PO 11/09/24 22:00 11/09/24 23:59 DC 11/09/24 22:20 20 GM Lisinopril (Prinivil 20mg) 20 mg Q24H PO 11/07/24 14:00 12/07/24 13:59 11/07/24 14:07 20 MG Lorazepam (AtiVAN) 0.5 mg HS PO 11/07/24 21:00 12/07/24 20:59 11/09/24 20:23 0.5 MG Metoprolol Succinate (TopROL XL) 100 mg Q24H PO 11/07/24 14:00 12/07/24 13:59 11/07/24 14:07 100 MG Mirtazapine (REMeron 15 MG TAB) 30 mg HS PO 11/07/24 21:00 12/07/24 20:59 11/09/24 20:23 30 MG Morphine Sulfate (MS CONtin 15MG) 15 mg Q12H PRN PO SEVERE PAIN (7-10) 11/07/24 13:00 11/12/24 12:59 11/10/24 09:22 15 MG Morphine Sulfate (morPHINE 15MG IR TAB) 15 mg [id number] PRN PO pain 11/07/24 11:00 11/07/24 12:39 DC Morphine Sulfate (morPHINE 2MG SYG) 1 mg Q4H PRN IVP SEVERE PAIN (7-10) 11/09/24 17:30 11/09/24 23:54 DC Morphine Sulfate (morPHINE 4MG SYG) 1 mg Q4H PRN IVP SEVERE PAIN (7-10) 11/09/24 23:59 11/16/24 23:44 11/10/24 12:51 1 MG Ondansetron HCl (zoFRAN 4MG INJ) 4 mg Q6H PRN IV NAUSEA/VOMITING 11/06/24 19:30 12/06/24 19:29 Pantoprazole Sodium (PROTonix 40MG INJ) 40 mg DAILY IVP 11/07/24 09:00 12/07/24 08:59 11/10/24 09:20 40 MG Pantoprazole Sodium (PROTonix 40MG TAB) 40 mg ACBKFST PO 01/05/25 07:30 02/04/25 07:29 Polyethylene Glycol/ Electrolytes (Golytely/Colyte Soln) 4,000 ml ONCE@1500 PO 11/10/24 15:00 11/10/24 21:00 11/10/24 14:49 4,000 ML Prednisone (deltaSONE/ oraSONE 5MG) 5 mg DAILY PO 11/08/24 09:00 12/08/24 08:59 11/10/24 09:21 5 MG Sodium Chloride 100 ml @ 0 mls/hr AD STAT IV 11/06/24 17:22 11/06/24 18:00 DC Tamsulosin HCl (FloMAX) 0.4 mg HS PO 11/07/24 21:00 12/07/24 20:59 11/09/24 20:23 0.4 MG DIAGNOSTICS / RADIOLOGY: [ ] ASSESSMENT: Acute kidney injury POA Normocytic normochromic anemia POA Positive fecal occult blood Swelling of left fingers Hypertension POA Hypernatremia Transient hypotension-improved POA Hyperlipidemia POA Prostate cancer POA Chronic back pain with surgeries x3 POA Aortic valve replacement POA Constipation POA Right eye artificial implant POA PLAN: Acute kidney injury POA His blood work show that the BUN is 10 and creatinine is 1.0. Will repeat his labs tomorrow. Normocytic normochromic anemia POA His blood work show that Hb is 11, HCT is 34.5, MCV is 100.3, RDW is 14.8 Iron panel show iron 51, TIBC is 184, % saturation is 27.7. Will repeat his labs tomorrow. Positive fecal occult blood His fecal occult blood is positive. We consulted gastroenterology and they recommended endoscopy. He underwent a endoscopy today which showed acute gastritis, LA Grade B reflux esophagitis with no bleeding, normal duodenal bulb and 2nd portion of duodenum. Gastroenterology recommended to start clear liquid diet for today, he uses omeprazole 40 mg p.o. daily for 8 weeks, follow up with them in 2 weeks and colonoscopy in 2 days. He is scheduled for a colonoscopy on tomorrow. Swelling of left fingers He complained of swelling in the left fingers. We did a US of bilateral upper limbs and it show no evidence of DVT. Hypertension POA Transient hypotension-improved POA Today his blood pressure is 115/74. He is not having any symptoms. Continue isosorbide dinitrate, metoprolol, lisinopril. Will monitor his blood pressure. Hypernatremia Today his blood work show that the sodium is 146. We added D5 water at 25ml/hr. Will repeat the labs tomorrow. Hyperlipidemia POA Continue Atorvastatin and clopidogrel. Prostate cancer POA Chronic back pain with surgeries x3 POA He complained of pain. His pain is controlled with narco. His ALP is 902. Constipation POA Continue lactulose PRN. He is on heart healthy diet. GI prophylaxis with pantoprazole. DVT prophylaxis with SCD. ATTESTATION BY PHYSICIAN I have seen and examined the patient. I reviewed the documentation, medical decision making, and treatment plan as noted by the resident provider above. I agree with the findings and plan of care. Manav Portillo IV, MD, AKSHAY MD Nov 10, 2024 15:53
[2024-11-10] MEDS: LACTULOSE 20 GM/30 ML UDCUP PO PRN (17:23)
[2024-11-11] VITALS (32 sets, daily range): BP systolic 74–153; BP diastolic 31–64; PULSE 65–100; RESP 8–32; TEMP 97.8–100.1; O2SAT 98–100
[2024-11-11 05:08] LABS: NUCLEATED RED BLOOD CELLS 0.0 % (0.0-0.19); PLATELET COUNT (AUTO) 187.0 K/uL (130-400); RED BLOOD CELL COUNT(AUTO) 3.49 MIL/uL (4.50-6.20); RED CELL DISTRIBUTION WIDTH 15.0 % (11.0-15.5); WHITE BLOOD COUNT (AUTO) 7.9 K/uL (4.8-10.8)
[2024-11-11 05:23] LABS: CREATININE 1.4 mg/dL (0.5-1.3); GLOMERULAR FILTR. RATE CALC 51.0 mL/min (>90); GLUCOSE,RANDOM 100.0 mg/dL (70-105); SODIUM SERUM 144.0 mmol/L (136-145); UREA NITROGEN, BLOOD 12.0 mg/dL (7-18)
[2024-11-11] MEDS: PoTASSium chl 10% ELIXIR 20MEQ 20 MEQ/15 ML UDCUP PO ONE (06:05)
--- NOTE | 2024-11-11 10:37 | NUR ---
PATIENT DID NOT COMPLETE BOWEL PREP technology coach reporting stool is still brown. Patient only completed half of the Golytely prep. Dr. Whitlock notified via telephone. New orders to restart bowel prep and reschedule surgery for tomorrow.
--- NOTE | 2024-11-11 12:37 | NUR ---
DR. CHAKRABORTY ROUNDING Potassium replacement of 40 mEq followed by recheck 1 hour after last infusion complete. Results to be reported to Dr. Chakraborty. Anticipate order for NG tube to complete bowel prep. Patient with dysphagia, coughing when drinking/swallowing. Speech therapy and MBSS will be ordered for Tuesday.
[2024-11-11] MEDS: LACTULOSE 20 GM/30 ML UDCUP PO ONE ×3 (13:26→17:52)
--- NOTE | 2024-11-11 15:04 | PN ---
[facility] PROGRESS NOTE Date of Service: Nov 11, 2024 Time of Service: 14:54 SUBJECTIVE: This is an 79 year old male past medical history of hypertension, hyperlipidemia, prostate cancer with past surgical history of back surgery times X3, right eye artificial implant and AVR who was brought by EMS [facility] for complaints of hypotension and generalized body weakness. Erin jeimy was at bedside during my evaluation and states that patient has been doing fine and had a follow-up appointment yesterday at the [facility] and today he has another appointment with his primary care doctor at the [facility] and for the past two days patient has been getting up early in the morning not get much rest as per daughter. Today while at the [facility] for routine checkup his systolic blood pressure was in the 80s and patient appeared weak so he was sent to the ED for evaluation.On ER arrival ECG was taken and result showed sinus rhythm HR64 with repolarization abnormalities suggests Ischemia anterolateral .V/S T97.9,HR64,BP115/56,Sat 99%RA. On examination,patient is awake,alert and coherent and appears comfortable .Patient denies fever,nausea,vomiting,dizziness,chest pain,palpitation,cough and shortness of breath.As per daughter ,patient has a good appetite and drinking f luid as well but because of his medication that he is taking for his cancer ,he has been having hot flushes and sweating a lot she said and has been told that it is an expected side effect of his drug as per Onco.Patient also reports being constipated because of his pain meds for his chronic back pain and last BM was 3 days ago and it was a normal in color.Patient denies Kidney problem before.Labs : WBC 7, neutrophils 86, hemoglobin 12, hematocrit 37, platelet count 257. BUN 28, creatinine 1.3, GFR 56, glucose 128 lactic acid 2.2 troponin 19. Chest x- ray no acute cardiopulmonary pathology is evident. While in the ER patient rece ived 2 L NS bolus bolus, Rocephin 2 g IV, calcium replacement of 1 g IV. The patient is admitted for further management. 11/07/2024: Patient is seen and evaluated in the ER. He complained of pain. His vitals signs are in the normal range. His labs are normal except for Hb is 12.5, HCT is 36 MCV is 101.7, chloride is 112, iron is 51, TIBC 184, %saturation is 27.7 ALP is 1107. We resumed his home meds. Narco is added which relieved the pain. We will continue to monitor his blood pressure and we are also planning to discharge him tomorrow. 11/08/2024: Patient is seen and evaluated in room 408. He has no symptoms today. His vitals signs are in the normal range. His labs are normal except for Hb is 10.4, HCT is 32.4, MCV is 100.3, ALP is 971. His fecal occult blood is positive. So GI was consulted and we are waiting for their recommendations. He also complained swelling in the left fingers. We did a USG doppler of both upper limbs and it showed no evidence of DVT. 11/09/2024: Patient is seen and evaluated in the room 408. He has no symptoms today. His vital signs are in the normal range except for blood pressure is 153/68. His labs are in the normal range except for Hb is 10.2, sodium is 147, chloride is 114, ALP is 869. He underwent a endoscopy today which showed acute gastritis, LA Grade B reflux esophagitis with no bleeding, normal duodenal bulb and 2nd portion of duodenum. Gastroenterology recommended to start clear liquid diet for today, he uses omeprazole 40 mg p.o. daily for 8 weeks, follow up with them in 2 weeks and colonoscopy in 2 days. He is scheduled for a colonoscopy on Tuesday11/10/2024: Patient is seen and evaluated in the room 408. He has no symptoms today. His vitals are in the normal range. His labs are normal except for Hb is 11, sodium is 146, ALP is 902, potassium is 3.4. He is scheduled for a colonoscopy tomorrow. 11/11/2024: He was evaluated at the bedside this morning. He is AAO x3. he was lying comfortably on the bed without complaint other than back pain. He is hemodynamically stable with BP at 99/53 mm of Hg. Remarkable lab is for potassium 2.6, creatinine 1.4 ALP 902, sodium 144, chloride 107. He was sche duled for colonoscopy today for positive FOBT but it could not happen because of inadequate bowel preparation. We will give 40 mEq of potassium IV with the eye on IRISH and repeat the BMP. He is on dextrose 25 ml/hr. We will get bladder scan to rule out urinary retention leading to IRISH. He may needs urinary catheter and strict I and O if he retains the urine. We will also get speech evaluation tomorrow. Rest of the plan as discussed below REVIEW OF SYSTEMS CONSTITUTIONAL: Swelling of left fingers. Denies fevers, chills, or night sweats. No unintentional weight loss reported. NEUROLOGICAL: Denies headache, amaurosis fugax,sensory deficit, vertigo/spinning sensation, gait abnormalities, or tremors. ENT: No hearing loss, otalgia, otorrhea, rhinitis, rhinorrhea, hoarseness, or sore throat. CARDIOVASCULAR: Denies any exertional angina, dyspnea on exertion, orthopnea, paroxysmal nocturnal dyspnea, palpitations, life-threatening arrhythmias, claudication. PULMONARY: Denies any shortness of breath, cough, phlegm/sputum, hemoptysis, pleuritic chest pain. SLEEP: Denies morning headaches, daytime somnolence or napping. Denies difficulty falling asleep, staying asleep, waking from sleep. Denies knowledge of snoring. GASTROINTESTINAL: Denies any type of dysphagia to either liquids or solids. Denies nausea, vomiting, pyrosis, early satiety, abdominal pain, diarrhea, constipation, or changes in stool consistency or caliber. Denies coffee-ground emesis, hematemesis, hematochezia, or melanotic stools. GENITOURINARY: Denies frequency, urgency, nocturia, hematuria or incontinence (Storage/Irritative symptoms.) Low urinary stream, straining to void, urinary intermittency or hesitancy, splitting of the voiding stream, terminal dribbling. ENDOCRINOLOGIC: Denies polyuria, polydipsia, polyphagia or heat/cold intolerances. HEMATOLOGIC: Denies thrombophilia/previous clots, or coagulopathy/bleeding disorders. ONCOLOGIC: Denies personal history of malignancy. DERMATOLOGIC: Denies rashes or pruritus. PSYCHIATRIC: Denies any suicidal or homicidal ideation. Denies hallucinations. PHYSICAL EXAM GENERAL APPEARANCE: The patient is awake, alert, and oriented, in no acute cardiopulmonary distress. NEUROLOGICAL: Cranial nerves II-XII grossly intact. Motor is 5/5 in bilateral upper and lower extremities proximal to distal. No sensory deficits. HEENT: Face is symmetric. Extraocular movement is intact. NECK: Supple. No JVD. No thyromegaly. No submental, submandibular, pre-/postauricular, occipital or supraclavicular lymphadenopathy. CHEST: Normal chest expansion. No Telemetry. LUNGS: Absence of any rales, rhonchi or any wheezing. CARDIOVASCULAR: Regular. S1 and S2 normal. No appreciable rubs, murmurs or gallops. ABDOMEN: Soft, nontender, and nondistended. There is no rebound, voluntary guarding, or rigidity. : Deferred. No Robles. EXTREMITIES: Swelling of fingers on the left Non-edematous and not cyanotic. No clubbing. Good capillary refill. SKIN: No skin breakdown. Vital Signs (last 8hr) Date Time Temp Pulse Resp B/P (MAP) Pulse Ox O2 Delivery O2 Flow Rate FiO2 11/11/24 11:52 98.4 79 17 85/51 97 Room Air 11/11/24 08:15 99.1 88 17 99/53 98 Room Air 11/11/24 08:00 98 Room Air* 0 21 LABS: Laboratory: Test 11/11/24 04:09 11/10/24 04:44 Range/Units White Blood Count 7.9 4.8-10.8 K/uL Red Blood Count 3.49 L 4.50-6.20 MIL/uL Hemoglobin 11.3 L 14.0-18.0 g/dL Hematocrit 35.0 L 42-54 % Mean Corpuscular Volume 100.3 H 79-99 fL Mean Corpuscular Hemoglobin 32.4 27.0-33.0 pg Mean Corpuscular Hemoglobin Concent 32.3 32.0-36.0 g/dL Red Cell Distribution Width 15.0 11.0-15.5 % Platelet Count 187 130-400 K/uL Mean Platelet Volume 9.6 7.5-10.5 fL Nucleated Red Blood Cells 0.0 0.0-0.19 % Sodium Level 144 136-145 mmol/L Potassium Level 2.6 *L 3.5-5.1 mmol/L Chloride Level 107 101-111 mmol/L Carbon Dioxide Level 24 21-32 mmol/L Blood Urea Nitrogen 12 7-18 mg/dL Creatinine 1.4 H 0.5-1.3 mg/dL Glomerular Filtration Rate Calc 51 >90 mL/min Random Glucose 100 70-105 mg/dL Total Calcium 6.8 L 8.5-10.1 mg/dL Alkaline Phosphatase 902 *H 50-136 U/L Current Medications Medications (Trade) Dose Ordered Sig/Brodie Route PRN Reason Start Time Stop Time Status Last Admin Dose Admin Acetaminophen/ Hydrocodone Bitart (NORco 5/325MG) 1 tab Q6H PRN PO MODERATE PAIN (4-6) 11/07/24 12:30 11/12/24 12:29 11/11/24 11:43 1 TAB Atorvastatin Calcium (LIPItor 40MG) 40 mg DAILY PO 11/08/24 09:00 12/08/24 08:59 11/11/24 10:53 40 MG Bisacodyl (DulcoLAX 5MG TAB) 10 mg ONCE@1999 PO 11/09/24 20:00 11/09/24 22:00 DC 11/09/24 20:23 10 MG Bisacodyl (DulcoLAX 5MG TAB) 10 mg ONCE@1999 PO 11/10/24 20:00 11/11/24 06:20 DC 11/10/24 20:58 10 MG Buspirone HCl (BUspar) 10 mg QID PO 11/07/24 13:00 12/07/24 12:59 11/11/24 13:26 10 MG Calcium Gluconate (Calcium Gluc 1gm Vial) 1 gm PROTOCOL STAT IVPB 11/06/24 17:18 11/06/24 17:23 DC Calcium Gluconate (Calcium Gluc 1gm Vial) 1 gm PROTOCOL STAT IVPB 11/06/24 20:10 11/06/24 20:12 DC 11/06/24 20:23 1 GM Ceftriaxone Sodium (ROCEphine 1G INJ) 1 gm Q24H IVPB 11/07/24 09:00 11/17/24 08:59 11/11/24 10:52 1 GM Ceftriaxone Sodium (Rocephin 2gm Inj) 2 gm ONCE STAT IVPB 11/06/24 15:50 11/06/24 15:52 DC 11/06/24 16:06 2 GM Clopidogrel Bisulfate (plaVIX 75MG) 75 mg DAILY PO 11/08/24 09:00 11/11/24 06:19 DC Fluoxetine HCl (FLUoxetine HCL 20 MG CAPSULE) 20 mg HS PO 11/07/24 21:00 12/07/24 20:59 11/10/24 20:58 20 MG Fluoxetine HCl (FLUoxetine HCL 20 MG CAPSULE) 40 mg DAILY PO 11/08/24 09:00 12/08/24 08:59 11/11/24 11:47 40 MG Home Med (Home Medication) (Melatonin/ Pyridoxine (Melato... HS PO 11/07/24 21:00 12/07/24 20:59 Isosorbide Mononitrate (Ismo) 60 mg AM PO 11/07/24 14:00 12/07/24 13:59 11/11/24 10:54 60 MG Isosorbide Mononitrate (Ismo) 60 mg Q24H PO 11/07/24 14:00 11/07/24 13:54 DC Lactated Ringer's 1,000 ml @ 75 mls/hr [id number] IV 11/06/24 19:30 12/06/24 19:29 11/07/24 22:19 75 MLS/HR Lactulose (Constulose 20gm/ 30ml Udcup) 20 gm BID PRN PO CONSTIPATION 11/06/24 19:30 12/06/24 19:29 11/10/24 17:23 20 GM Lactulose (Constulose 20gm/ 30ml Udcup) 20 gm ONCE@0700 PO 11/10/24 07:00 11/10/24 09:00 DC 11/10/24 07:44 20 GM Lactulose (Constulose 20gm/ 30ml Udcup) 20 gm ONCE@0900 PO 11/10/24 09:00 11/10/24 11:00 DC 11/10/24 09:20 20 GM Lactulose (Constulose 20gm/ 30ml Udcup) 20 gm ONCE@1100 PO 11/10/24 11:00 11/10/24 13:00 DC 11/10/24 11:51 20 GM Lactulose (Constulose 20gm/ 30ml Udcup) 20 gm ONCE@1800 PO 11/09/24 18:00 11/09/24 20:00 DC 11/09/24 18:06 20 GM Lactulose (Constulose 20gm/ 30ml Udcup) 20 gm ONCE@2000 PO 11/09/24 20:00 11/09/24 22:00 DC 11/09/24 20:23 20 GM Lactulose (Constulose 20gm/ 30ml Udcup) 20 gm ONCE@0 PO 11/09/24 22:00 11/09/24 23:59 DC 11/09/24 22:20 20 GM Lisinopril (Prinivil 20mg) 20 mg Q24H PO 11/07/24 14:00 12/07/24 13:59 11/07/24 14:07 20 MG Lorazepam (AtiVAN) 0.5 mg HS PO 11/07/24 21:00 12/07/24 20:59 11/10/24 20:58 0.5 MG Metoprolol Succinate (TopROL XL) 100 mg Q24H PO 11/07/24 14:00 12/07/24 13:59 11/07/24 14:07 100 MG Mirtazapine (REMeron 15 MG TAB) 30 mg HS PO 11/07/24 21:00 12/07/24 20:59 11/10/24 20:58 30 MG Morphine Sulfate (MS CONtin 15MG) 15 mg Q12H PRN PO SEVERE PAIN (7-10) 11/07/24 13:00 11/12/24 12:59 11/11/24 06:21 15 MG Morphine Sulfate (morPHINE 15MG IR TAB) 15 mg [id number] PRN PO pain 11/07/24 11:00 11/07/24 12:39 DC Morphine Sulfate (morPHINE 2MG SYG) 1 mg Q4H PRN IVP SEVERE PAIN (7-10) 11/09/24 17:30 11/09/24 23:54 DC Morphine Sulfate (morPHINE 4MG SYG) 1 mg Q4H PRN IVP SEVERE PAIN (7-10) 11/09/24 23:59 11/11/24 06:19 DC 11/10/24 23:41 1 MG Ondansetron HCl (zoFRAN 4MG INJ) 4 mg Q6H PRN IV NAUSEA/VOMITING 11/06/24 19:30 12/06/24 19:29 11/10/24 21:09 4 MG Pantoprazole Sodium (PROTonix 40MG INJ) 40 mg DAILY IVP 11/07/24 09:00 12/07/24 08:59 11/11/24 10:53 40 MG Pantoprazole Sodium (PROTonix 40MG TAB) 40 mg ACBKFST PO 01/05/25 07:30 11/11/24 06:20 DC Polyethylene Glycol/ Electrolytes (Golytely/Colyte Soln) 4,000 ml ONCE@1500 PO 11/10/24 15:00 11/10/24 21:00 DC 11/10/24 14:49 4,000 ML Potassium Chloride 100 ml @ 100 mls/hr AD PRN IV POTASSIUM PROTOCOL 11/11/24 06:00 12/11/24 05:59 11/11/24 06:05 100 MLS/HR Potassium Chloride (K-Dur/Klor-Con 20meq) 20 meq AD PRN PO POTASSIUM PROTOCOL 11/11/24 06:00 12/11/24 05:59 Potassium Chloride (KCl 10% Elixir 20meq/15ml) 20 meq AD PRN PO POTASSIUM PROTOCOL 11/11/24 06:00 12/11/24 05:59 Prednisone (deltaSONE/ oraSONE 5MG) 5 mg DAILY PO 11/08/24 09:00 12/08/24 08:59 11/11/24 10:53 5 MG Sodium Chloride 100 ml @ 0 mls/hr AD STAT IV 11/06/24 17:22 11/06/24 18:00 DC Tamsulosin HCl (FloMAX) 0.4 mg HS PO 11/07/24 21:00 12/07/24 20:59 11/10/24 20:58 0.4 MG DIAGNOSTICS / RADIOLOGY: [ ] ASSESSMENT: Acute kidney injury POA Normocytic normochromic anemia POA Positive fecal occult blood Swelling of left fingers Hypertension POA Hypernatremia Hypokalemia Transient hypotension-improved POA Hyperlipidemia POA Prostate cancer POA Chronic back pain with surgeries x3 POA Aortic valve replacement POA Constipation POA Right eye artificial implant POA PLAN: Acute kidney injury POA His blood work show that the BUN is 12 and creatinine is 1.4. We will get urinary bladder scan today. Needs strict I&O We will get urine electrolytes and creatinine Normocytic normochromic anemia POA His blood work show that Hb is 11, HCT is 34.5, MCV is 100.3, RDW is 14.8 Iron panel show iron 51, TIBC is 184, % saturation is 27.7. Will repeat his labs tomorrow. Positive fecal occult blood His fecal occult blood is positive. We consulted gastroenterology and they recommended endoscopy. He underwent a endoscopy today which showed acute gastritis, LA Grade B reflux esophagitis with no bleeding, normal duodenal bulb and 2nd portion of duodenum. Gastroenterology recommended to start clear liquid diet for today, he uses omeprazole 40 mg p.o. daily for 8 weeks, follow up with them in 2 weeks and colonoscopy in 2 days. He is scheduled for a colonoscopy on tomorrow due to inadequate bowel preparation today. Swelling of left fingers He complained of swelling in the left fingers. We did a US of bilateral upper limbs and it show no evidence of DVT. Hypertension POA Transient hypotension-improved POA Today his blood pressure is 115/74. He is not having any symptoms. Continue isosorbide dinitrate, metoprolol, lisinopril. Will monitor his blood pressure. Hypokalemia Potassium 2.6 with creatinine 1.4 We will replete potassium with 40 mEq IV and check Hypernatremia(resolved) Today his blood work show that the sodium is 144. We added D5 water at 25ml/hr. Will repeat the labs tomorrow. Hyperlipidemia POA Continue Atorvastatin and clopidogrel. Prostate cancer POA Chronic back pain with surgeries x3 POA He complained of pain. His pain is controlled with narco. His ALP is 902. Constipation POA Continue lactulose PRN. He is on heart healthy diet. GI prophylaxis with pantoprazole. DVT prophylaxis with SCD. ATTESTATION BY PHYSICIAN I have seen and examined the patient. I reviewed the documentation, medical decision making, and treatment plan as noted by the resident provider above. I agree with the findings and plan of care. Manav Portillo IV, MD, SUNIL MD Nov 11, 2024 15:04
--- NOTE | 2024-11-11 15:12 | NUR ---
BLADDER SCAN RESULTS Bladder scan performed at bedside. 43mL urine noted.
--- NOTE | 2024-11-11 16:20 | NUR ---
RAPID RESPONSE CALLED Rapid response called. Vital signs with blood pressure at 77/46, Pule at 91; Temperature at 100.1 (axillary); 93% on room air. See rapid response form in chart.
--- NOTE | 2024-11-11 16:20 | NUR ---
CRITICAL CARE CONSULT Dr. Marie notified of critical care consult and change in patient condition. Dr. Marie recommend calling rapid response and transfer to ICU.
[2024-11-11 16:28] LABS: NUCLEATED RED BLOOD CELLS 0.0 % (0.0-0.19); PLATELET COUNT (AUTO) 172.0 K/uL (130-400); RED BLOOD CELL COUNT(AUTO) 3.23 MIL/uL (4.50-6.20); RED CELL DISTRIBUTION WIDTH 14.8 % (11.0-15.5); WHITE BLOOD COUNT (AUTO) 7.8 K/uL (4.8-10.8)
[2024-11-11 16:35] LABS: CREATININE 1.5 mg/dL (0.5-1.3); GLOMERULAR FILTR. RATE CALC 47.0 mL/min (>90); GLUCOSE,RANDOM 115.0 mg/dL (70-105); SODIUM SERUM 142.0 mmol/L (136-145); UREA NITROGEN, BLOOD 14.0 mg/dL (7-18)
[2024-11-11 16:49] LABS: ASPARTATE AMINOTRANSFERASE 63.0 U/L (10-37); TOTAL PROTEIN, SERUM 5.2 g/dL (6.0-8.3)
--- NOTE | 2024-11-11 17:06 | NUR ---
MD WELCH-GI notified of rapid response and patient transfer to ICU for hypotension. report received from 4th floor nurse Caroline. Lowest BP noted 77/46. As per MD welch, ok to cancel Colonoscopy and prep medications.
[2024-11-11] MEDS: PEG 3350/NA SULF,BICARB,CL/KCL 4000 ML SOLN PO ONE (17:51)
[2024-11-11] MEDS: NOREPINEPHRIN 4MG/NS 250ML 250 ML IV SCH (23:35)
[2024-11-12] VITALS (36 sets, daily range): BP systolic 99–152; BP diastolic 38–83; PULSE 73–93; RESP 9–18; TEMP 97.7–98.8; O2SAT 98–100
[2024-11-12 04:02] LABS: IMMATURE GRANULOCYTE ABSOLUTE 0.08 K/uL (0-1); NUCLEATED RED BLOOD CELLS 0.0 % (0.0-0.19); PLATELET COUNT (AUTO) 149 K/uL (130-400); RED BLOOD CELL COUNT(AUTO) 2.97 MIL/uL (4.50-6.20); RED CELL DISTRIBUTION WIDTH 14.9 % (11.0-15.5); WHITE BLOOD COUNT (AUTO) 6.4 K/uL (4.8-10.8)
[2024-11-12 04:22] LABS: CREATININE 1.2 mg/dL (0.5-1.3); GLOMERULAR FILTR. RATE CALC 61.0 mL/min (>90); GLUCOSE,RANDOM 78.0 mg/dL (70-105); SODIUM SERUM 141.0 mmol/L (136-145); UREA NITROGEN, BLOOD 14.0 mg/dL (7-18)
[2024-11-12] MEDS: PoTASSium chloRIDE 20MEQ ER 20 MEQ ERTAB PO PRN (04:34)
[2024-11-12] MEDS: PoTASSium chl 10% ELIXIR 20MEQ 20 MEQ/15 ML UDCUP PO PRN (06:56)
--- NOTE | 2024-11-12 10:20 | CONS ---
[facility] CONSULTATION NOTE Date Patient Seen: Nov 12, 2024 Time of Visit: 10:14 Supervising Physician: Dr Wilber Alexandra Reason for Consultation: ICU medical management Primary Care Physician: [ ] Outpatient Specialists: [ ] Inpatient Consults: [ ] PROBLEM LIST: Hypotensin Acute kidney injury POA Normocytic normochromic anemia POA Positive fecal occult blood Swelling of left fingers Hypertension POA Hypernatremia Hypokalemia Transient hypotension-improved POA Hyperlipidemia POA Prostate cancer POA Chronic back pain with surgeries x3 POA Aortic valve replacement POA Constipation POA Right eye artificial implant POA HPI: 79 year old male past medical history of hypertension, hyperlipidemia, prostate cancer with past surgical history of back surgery times X3, right eye artificial implant and AVR who was brought by EMS coming from [facility] for complaints of hypotension and generalized body weakness. Daughter was at bedside during my evaluation and states that patient has been doing fine and had a follow-up appointment yesterday at the [facility] and today he has another appointment with his primary care doctor at the [facility] and for the past two days patient has been getting up early in the morning not get much rest as per daughter. US doppler of both upper limbs and it showed no evidence of DVT. He underwent a endoscopy today which showed acute gastritis, LA Grade B reflux esophagitis with no bleeding, normal duodenal bulb and 2nd portion of duodenum. Gastroenterology recommended to start clear liquid diet for today, he uses omeprazole 40 mg p.o. daily for 8 weeks, follow up with them in 2 weeks and colonoscopy in 2 days. scheduled for colonoscopy today for positive FOBT but it could not happen because of inadequate bowel preparation. Patient becoming hypotensive overnight, transferred to the ICU, receiving fluids and starting on pressors. Patient's white count has dropped to 6.4, hemoglobin 9.6 in his platelets are 149. Patient's is now off pressors, vital signs are stable. He is afebrile. PAST MEDICAL HX: see above PAST SURGICAL HX: noncontributory SOCIAL HISTORY: No tobacco, ETOH, or illicit drug use Coded Allergies: No Known Drug Allergies (Verified Allergy, 03/20/12) REVIEW OF SYSTEMS: 12 point ROS reviewed with patient. Pertinent positives mentioned above. Otherwise negative. PHYSICAL EXAM: GENERAL: alert, weak, awake oriented x 3 HEENT: EOMI, Sclera non icteric, moist mucosa NECK: Supple, no JVD, trachea midline LUNGS: Clear breath sounds bilaterally. No wheezes HEART: Regular rate and rhythm. Normal S1 and S2, without murmurs ABD: Abdomen soft, nontender. Bowel sounds present EXT: No clubbing cyanosis or edema NEURO: Alert and oriented to person, follows commands Vital Signs (last 8hr) Date Time Temp Pulse Resp B/P (MAP) Pulse Ox O2 Delivery O2 Flow Rate FiO2 11/12/24 05:45 75 17 113/56 (75) 95 11/12/24 05:30 78 16 104/55 (71) 96 11/12/24 05:15 80 15 116/38 (64) 96 11/12/24 05:00 73 13 106/52 (70) 95 11/12/24 04:45 77 18 113/54 (73) 95 11/12/24 04:30 83 17 118/60 (79) 96 11/12/24 04:15 74 16 111/54 (73) 69 11/12/24 04:00 98.8 11/12/24 04:00 74 14 120/60 (80) 96 11/12/24 03:45 81 11 152/69 (96) 96 11/12/24 03:30 84 9 149/74 (99) 96 11/12/24 03:15 78 10 120/50 (73) 95 11/12/24 03:00 77 10 109/48 (68) 97 11/12/24 02:45 77 11 127/53 (77) 97 11/12/24 02:30 74 10 132/51 (78) 96 11/12/24 02:15 77 10 111/47 (68) 97 LABS: Hematology Labs: Test 11/12/24 03:37 Range/Units White Blood Count 6.4 4.8-10.8 K/uL Red Blood Count 2.97 L 4.50-6.20 MIL/uL Hemoglobin 9.6 L 14.0-18.0 g/dL Hematocrit 29.6 L 42-54 % Mean Corpuscular Volume 99.7 H 79-99 fL Mean Corpuscular Hemoglobin 32.3 27.0-33.0 pg Mean Corpuscular Hemoglobin Concent 32.4 32.0-36.0 g/dL Red Cell Distribution Width 14.9 11.0-15.5 % Platelet Count 149 130-400 K/uL Mean Platelet Volume 9.4 7.5-10.5 fL Immature Granulocyte % (Auto) 1.3 H 0-1 % Neutrophils (%) (Auto) 79.9 H 40.0-77.0 % Lymphocytes (%) (Auto) 8.3 L 21.0-51.0 % Monocytes (%) (Auto) 7.7 3.0-13.0 % Eosinophils (%) (Auto) 2.3 0.0-8.0 % Basophils (%) (Auto) 0.5 0.0-5.0 % Neutrophils # (Auto) 5.1 1.8-7.7 K/uL Lymphocytes # (Auto) 0.5 L 1.0-4.8 K/uL Monocytes # (Auto) 0.5 0.1-1.0 K/uL Eosinophils # (Auto) 0.15 0.00-0.70 K/uL Basophils # (Auto) 0.03 0.00-0.20 K/uL Absolute Immature Granulocyte (auto 0.08 0-1 K/uL Nucleated Red Blood Cells 0.0 0.0-0.19 % Chemistry Labs: Test 11/12/24 03:37 11/11/24 16:22 11/11/24 16:06 Range/Units Sodium Level 141 136-145 mmol/L Potassium Level 3.2 L 3.5-5.1 mmol/L Chloride Level 106 101-111 mmol/L Carbon Dioxide Level 26 21-32 mmol/L Blood Urea Nitrogen 14 7-18 mg/dL Creatinine 1.2 0.5-1.3 mg/dL Glomerular Filtration Rate Calc 61 >90 mL/min Random Glucose 78 70-105 mg/dL Total Calcium 6.8 L 8.5-10.1 mg/dL Magnesium Level 1.80 1.80-2.40 mg/dL Whole Blood Glucose 104 70-110 MG/DL Lactic Acid Level 1.7 0.8-2.5 mmol/L Total Bilirubin 0.5 0.2-1.0 mg/dL Aspartate Amino Transf (AST/SGOT) 63 H 10-37 U/L Alanine Aminotransferase (ALT/SGPT) 33 12-78 U/L Alkaline Phosphatase 901 *H 50-136 U/L B-Type Natriuretic Peptide 503 H 0-100 pg/mL Total Protein 5.2 L 6.0-8.3 g/dL Albumin 2.1 L 3.5-5.0 g/dL DIAGNOSTICS / RADIOLOGY RESULTS: [ ] PLAN Patient cleared for downgrade, off pressors Cultures no growth Continue antibiotics, follow specialty recs NEURO: Minimize central acting medications as possible. Fall Precautions. Well lighted room through the day and minimize interruptions through the night to prevent acute delirium. PULMONARY: Supplemental 02 as needed Titrate Fio2 to keep Spo2 > or = 90% DuoNebs and CPT as needed IS hourly while awake for pulmonary hygiene Out of bed to chair as tolerated VAP Bundle Vent/BIPAP Settings: [ ] Driving pressure: [ ] P Plat: [ ] Static C: [ ] Static R: [ ] P/F Ratio: [ ] CARDIOVASCULAR: Follow hemodynamics. Titrate vasopressor to keep MAP >65 or systolic blood pressure >95mmHg DIPS: [ ] LINES: [ ] GI & NUTRITION: Continue nutritional support Aspirations precautions Prokinetic agents and laxatives as needed KIDNEYS & ELECTROLYTES: Strict monitoring of intake and output Daily weights Avoid nephrotoxic agents Monitor electrolytes and replace as needed Goal urine output of 30mL/hr or 0.5mL/kg/hr Urine output: [ ] Fluid Balance: [ ] ENDOCRINE: Maintain blood glucose between 100-180 at all times. Insulin sliding scale for blood glucose management INFECTIOUS DISEASE: Trend temperature. Morelos-culture if febrile. Micro: [ ] Antibiotics: [ ] HEMATOLOGY & COAGULATION: Monitor H&H. Keep Hgb > 7 Transfuse 1 unit of PRBC for Hgb < 7 Transfuse 1 pack of platelets of platelets < 20, 000 Watch for any signs and symptoms of bleeding SKIN: Pressure ulcer prevention per facility protocol Rehab: PT/OT Prophylaxis: GI: [ ] DVT: [ ] Code Status: Full Resuscitation Disposition: [ ] Other: Total patient care time exceeds 35 minutes excluding all procedures. Case was discussed and seen with my supervising physician. The above plan was formulated and agreed upon. QUITA SALOMON Nov 12, 2024 10:20
--- NOTE | 2024-11-12 13:10 | NUR ---
BEDSIDE SWALLOW EVAL COMPLETED. no s/s of aspiration. RECOMMEND: pureed solids, thin liquids and pills crushed with pureed COMPENSATORY STRATEGIES: 1. sit upright during oral intake 2. small bites/sips 3. slow oral intake 4. check for pocketing (oral hygiene after meals) 5. intermittent supervision and feeding assistance during meals DIRECTOR OF CATH LAB reviewed results and recommendations with patient and family. DIRECTOR OF CATH LAB educated patient on risks and consequences of aspiration. Speech therapy not warranted at this time. Mild oral dysphagia best addressed with modified diet and compensatory strategies for safe swallows. All questions answered. Addendum: 11/12/[address] [facility] Amended: Links added.
--- NOTE | 2024-11-12 13:48 | PN ---
[facility] PROGRESS NOTE Date of Service: Nov 12, 2024 Time of Service: 9:40 SUBJECTIVE: This is an 79 year old male past medical history of hypertension, hyperlipidemia, prostate cancer with past surgical history of back surgery times X3, right eye artificial implant and AVR who was brought by EMS coming from [facility] for complaints of hypotension and generalized body weakness. Nata babcock was at bedside during my evaluation and states that patient has been doing fine and had a follow-up appointment yesterday at the [facility] and today he has another appointment with his primary care doctor at the [facility] and for the past two days patient has been getting up early in the morning not get much rest as per daughter. Today while at the [facility] for routine checkup his systolic blood pressure was in the 80s and patient appeared weak so he was sent to the ED for evaluation.On ER arrival ECG was taken and result showed sinus rhythm HR64 with repolarization abnormalities suggests Ischemia anterolateral .V/S T97.9,HR64,BP115/56,Sat 99%RA. On examination,patient is awake,alert and coherent and appears comfortable .Patient denies fever,nausea,vomiting,dizziness,chest pain,palpitation,cough and shortness of breath.As per daughter ,patient has a good appetite and drinking fl uid as well but because of his medication that he is taking for his cancer ,he has been having hot flushes and sweating a lot she said and has been told that it is an expected side effect of his drug as per [facility].Patient also reports being constipated because of his pain meds for his chronic back pain and last BM was 3 days ago and it was a normal in color.Patient denies Kidney problem before.Labs : WBC 7, neutrophils 86, hemoglobin 12, hematocrit 37, platelet count 257. BUN 28, creatinine 1.3, GFR 56, glucose 128 lactic acid 2.2 troponin 19. Chest x- ray no acute cardiopulmonary pathology is evident. While in the ER patient received 2 L NS bolus bolus, Rocephin 2 g IV, calcium replacement of 1 g IV. The patient is admitted for further management. 11/07/2024: Patient is seen and evaluated in the ER. He complained of pain. His vitals signs are in the normal range. His labs are normal except for Hb is 12.5, HCT is 36 MCV is 101.7, chloride is 112, iron is 51, TIBC 184, %saturation is 27.7 ALP is 1107. We resumed his home meds. Narco is added which relieved the pain. We will continue to monitor his blood pressure and we are also planning to discharge him tomorrow. 11/08/2024: Patient is seen and evaluated in room 408. He has no symptoms today. His vitals signs are in the normal range. His labs are normal except for Hb is 10.4, HCT is 32.4, MCV is 100.3, ALP is 971. His fecal occult blood is positive. So GI was consulted and we are waiting for their recommendations. He also complained swelling in the left fingers. We did a USG doppler of both upper limbs and it showed no evidence of DVT. 11/09/2024: Patient is seen and evaluated in the room 408. He has no symptoms today. His vital signs are in the normal range except for blood pressure is 153/68. His labs are in the normal range except for Hb is 10.2, sodium is 147, chloride is 114, ALP is 869. He underwent a endoscopy today which showed acute gastritis, LA Grade B reflux esophagitis with no bleeding, normal duodenal bulb and 2nd portion of duodenum. Gastroenterology recommended to start clear liquid diet for today, he uses omeprazole 40 mg p.o. daily for 8 weeks, follow up with them in 2 weeks and colonoscopy in 2 days. He is scheduled for a colonoscopy on Tuesday11/10/2024: Patient is seen and evaluated in the room 408. He has no symptoms today. His vitals are in the normal range. His labs are normal except for Hb is 11, sodium is 146, ALP is 902, potassium is 3.4. He is scheduled for a colonoscopy tomorrow. 11/11/2024: He was evaluated at the bedside this morning. He is AAO x3. he was lying comfortably on the bed without complaint other than back pain. He is hemodynamically stable with BP at 99/53 mm of Hg. Remarkable lab is for potassium 2.6, creatinine 1.4 ALP 902, sodium 144, chloride 107. He was sched uled for colonoscopy today for positive FOBT but it could not happen because of inadequate bowel preparation. We will give 40 mEq of potassium IV with the eye on IRISH and repeat the BMP. He is on dextrose 25 ml/hr. We will get bladder scan to rule out urinary retention leading to IRISH. He may needs urinary catheter and strict I and O if he retains the urine. We will also get speech evaluation tomorrow. Rest of the plan as discussed below 11/12/2024: He was evaluated at the bedside this morning. He is AAO x3 and has a resting tremor bilaterally in upper extremities which as per patient's has been present before admission. His BP dropped overnight to 77/46 due to which colonoscopy prep was called off, a rapid response was called, patient was shifted to ICU and was started on Levophed. This morning, he is vitally stable with BP 124/61, HR 75bpm. BNP from yesterday came back elevated at 503 for which CXR and echo have been ordered. Creatinine trended downwards from 1.5 yesterday to 1.2 today. For further evaluation of underlying cause of hypotension, cortisol AM and cosyntropin ACTH stimulation test have been placed. REVIEW OF SYSTEMS CONSTITUTIONAL: Swelling of left fingers. Denies fevers, chills, or night sweats. No unintentional weight loss reported. NEUROLOGICAL: Resting tremors in upper extremities. Denies headache, amaurosis fugax,sensory deficit, vertigo/spinning sensation, gait abnormalities. ENT: No hearing loss, otalgia, otorrhea, rhinitis, rhinorrhea, hoarseness, or sore throat. CARDIOVASCULAR: Denies any exertional angina, dyspnea on exertion, orthopnea, paroxysmal nocturnal dyspnea, palpitations, life-threatening arrhythmias, claudication. PULMONARY: Denies any shortness of breath, cough, phlegm/sputum, hemoptysis, pleuritic chest pain. SLEEP: Denies morning headaches, daytime somnolence or napping. Denies difficulty falling asleep, staying asleep, waking from sleep. Denies knowledge of snoring. GASTROINTESTINAL: Denies any type of dysphagia to either liquids or solids. Denies nausea, vomiting, pyrosis, early satiety, abdominal pain, diarrhea, constipation, or changes in stool consistency or caliber. Denies coffee-ground emesis, hematemesis, hematochezia, or melanotic stools. GENITOURINARY: Denies frequency, urgency, nocturia, hematuria or incontinence (Storage/Irritative symptoms.) Low urinary stream, straining to void, urinary intermittency or hesitancy, splitting of the voiding stream, terminal dribbling. ENDOCRINOLOGIC: Denies polyuria, polydipsia, polyphagia or heat/cold intolerances. HEMATOLOGIC: Denies thrombophilia/previous clots, or coagulopathy/bleeding disorders. ONCOLOGIC: Denies personal history of malignancy. DERMATOLOGIC: Denies rashes or pruritus. PSYCHIATRIC: Denies any suicidal or homicidal ideation. Denies hallucinations. PHYSICAL EXAM GENERAL APPEARANCE: The patient is awake, alert, and oriented, in no acute cardiopulmonary distress. NEUROLOGICAL: Resting tremors in upper extremities. Cranial nerves II-XII grossly intact. Motor is 5/5 in bilateral upper and lower extremities proximal to distal. No sensory deficits. HEENT: Face is symmetric. Extraocular movement is intact. NECK: Supple. No JVD. No thyromegaly. No submental, submandibular, pre- /postauricular, occipital or supraclavicular lymphadenopathy. CHEST: Normal chest expansion. No Telemetry. LUNGS: Absence of any rales, rhonchi or any wheezing. CARDIOVASCULAR: Regular. S1 and S2 normal. No appreciable rubs, murmurs or gallops. ABDOMEN: Soft, nontender, and nondistended. There is no rebound, voluntary guarding, or rigidity. : Deferred. No Robles. EXTREMITIES: Swelling of fingers on the left Non-edematous and not cyanotic. No clubbing. Good capillary refill. SKIN: No skin breakdown. Vital Signs (last 8hr) Date Time Temp Pulse Resp B/P (MAP) Pulse Ox O2 Delivery O2 Flow Rate FiO2 11/12/24 11:59 98.8 87 18 140/69 93 Room Air 21 11/12/24 11:42 100 Room Air* 0 11/12/24 10:00 81 17 131/57 100 Room Air 11/12/24 09:30 85 11 131/57 98 Room Air 11/12/24 09:00 88 15 124/61 98 Room Air 11/12/24 08:30 85 14 134/56 97 Room Air 11/12/24 08:00 98 Room Air* 0 21 11/12/24 08:00 98.2 87 14 133/64 98 Room Air 11/12/24 07:30 93 16 140/54 96 Room Air 11/12/24 07:00 76 10 107/51 78 Room Air 11/12/24 05:45 75 17 113/56 (78) 95 LABS: Laboratory: Test 11/12/24 03:37 11/11/24 16:22 11/11/24 16:06 Range/Units White Blood Count 6.4 4.8-10.8 K/uL Red Blood Count 2.97 L 4.50-6.20 MIL/uL Hemoglobin 9.6 L 14.0-18.0 g/dL Hematocrit 29.6 L 42-54 % Mean Corpuscular Volume 99.7 H 79-99 fL Mean Corpuscular Hemoglobin 32.3 27.0-33.0 pg Mean Corpuscular Hemoglobin Concent 32.4 32.0-36.0 g/dL Red Cell Distribution Width 14.9 11.0-15.5 % Platelet Count 149 130-400 K/uL Mean Platelet Volume 9.4 7.5-10.5 fL Immature Granulocyte % (Auto) 1.3 H 0-1 % Neutrophils (%) (Auto) 79.9 H 40.0-77.0 % Lymphocytes (%) (Auto) 8.3 L 21.0-51.0 % Monocytes (%) (Auto) 7.7 3.0-13.0 % Eosinophils (%) (Auto) 2.3 0.0-8.0 % Basophils (%) (Auto) 0.5 0.0-5.0 % Neutrophils # (Auto) 5.1 1.8-7.7 K/uL Lymphocytes # (Auto) 0.5 L 1.0-4.8 K/uL Monocytes # (Auto) 0.5 0.1-1.0 K/uL Eosinophils # (Auto) 0.15 0.00-0.70 K/uL Basophils # (Auto) 0.03 0.00-0.20 K/uL Absolute Immature Granulocyte (auto 0.08 0-1 K/uL Nucleated Red Blood Cells 0.0 0.0-0.19 % Sodium Level 141 136-145 mmol/L Potassium Level 3.2 L 3.5-5.1 mmol/L Chloride Level 106 101-111 mmol/L Carbon Dioxide Level 26 21-32 mmol/L Blood Urea Nitrogen 14 7-18 mg/dL Creatinine 1.2 0.5-1.3 mg/dL Glomerular Filtration Rate Calc 61 >90 mL/min Random Glucose 78 70-105 mg/dL Total Calcium 6.8 L 8.5-10.1 mg/dL Magnesium Level 1.80 1.80-2.40 mg/dL Whole Blood Glucose 104 70-110 MG/DL Lactic Acid Level 1.7 0.8-2.5 mmol/L Total Bilirubin 0.5 0.2-1.0 mg/dL Aspartate Amino Transf (AST/SGOT) 63 H 10-37 U/L Alanine Aminotransferase (ALT/SGPT) 33 12-78 U/L Alkaline Phosphatase 901 *H 50-136 U/L B-Type Natriuretic Peptide 503 H 0-100 pg/mL Total Protein 5.2 L 6.0-8.3 g/dL Albumin 2.1 L 3.5-5.0 g/dL Current Medications Medications (Trade) Dose Ordered Sig/Brodie Route PRN Reason Start Time Stop Time Status Last Admin Dose Admin Acetaminophen/ Hydrocodone Bitart (NORco 5/325MG) 1 tab Q6H PRN PO MODERATE PAIN (4-6) 11/07/24 12:30 11/12/24 12:29 DC 11/11/24 18:23 1 TAB Atorvastatin Calcium (LIPItor 40MG) 40 mg DAILY PO 11/08/24 09:00 12/08/24 08:59 11/12/24 08:46 40 MG Bisacodyl (DulcoLAX 5MG TAB) 10 mg ONCE@1999 PO 11/09/24 20:00 11/09/24 22:00 DC 11/09/24 20:23 10 MG Bisacodyl (DulcoLAX 5MG TAB) 10 mg ONCE@1999 PO 11/10/24 20:00 11/11/24 06:20 DC 11/10/24 20:58 10 MG Buspirone HCl (BUspar) 10 mg QID PO 11/07/24 13:00 12/07/24 12:59 11/12/24 08:46 10 MG Calcium Gluconate (Calcium Gluc 1gm Vial) 1 gm PROTOCOL STAT IVPB 11/06/24 17:18 11/06/24 17:23 DC Calcium Gluconate (Calcium Gluc 1gm Vial) 1 gm PROTOCOL STAT IVPB 11/06/24 20:10 11/06/24 20:12 DC 11/06/24 20:23 1 GM Ceftriaxone Sodium (ROCEphine 1G INJ) 1 gm Q24H IVPB 11/07/24 09:00 11/17/24 08:59 11/12/24 08:48 1 GM Ceftriaxone Sodium (Rocephin 2gm Inj) 2 gm ONCE STAT IVPB 11/06/24 15:50 11/06/24 15:52 DC 11/06/24 16:06 2 GM Clopidogrel Bisulfate (plaVIX 75MG) 75 mg DAILY PO 11/08/24 09:00 11/11/24 06:19 DC Fluoxetine HCl (FLUoxetine HCL 20 MG CAPSULE) 20 mg HS PO 11/07/24 21:00 12/07/24 20:59 11/11/24 22:21 20 MG Fluoxetine HCl (FLUoxetine HCL 20 MG CAPSULE) 40 mg DAILY PO 11/08/24 09:00 12/08/24 08:59 11/12/24 08:47 40 MG Home Med (Home Medication) (Melatonin/ Pyridoxine (Melato... HS PO 11/07/24 21:00 12/07/24 20:59 Hydromorphone HCl (DiLAUDid 0.5MG INJ) 0.2 mg Q2H PRN IVP SEVERE PAIN (7-10) IF NPO 11/12/24 09:30 11/12/24 09:43 DC Hydromorphone HCl (DiLAUDid 0.5MG INJ) 0.5 mg Q2H PRN IVP SEVERE PAIN (7-10) IF NPO 11/12/24 10:00 11/17/24 09:59 11/12/24 09:52 0.5 MG Isosorbide Mononitrate (Ismo) 60 mg AM PO 11/07/24 14:00 12/07/24 13:59 11/11/24 10:54 60 MG Isosorbide Mononitrate (Ismo) 60 mg Q24H PO 11/07/24 14:00 11/07/24 13:54 DC Lactated Ringer's 1,000 ml @ 75 mls/hr [id number] IV 11/06/24 19:30 12/06/24 19:29 11/07/24 22:19 75 MLS/HR Lactulose (Constulose 20gm/ 30ml Udcup) 20 gm BID PRN PO CONSTIPATION 11/06/24 19:30 12/06/24 19:29 11/10/24 17:23 20 GM Lactulose (Constulose 20gm/ 30ml Udcup) 20 gm ONCE@0700 PO 11/10/24 07:00 11/10/24 09:00 DC 11/10/24 07:44 20 GM Lactulose (Constulose 20gm/ 30ml Udcup) 20 gm ONCE@0900 PO 11/10/24 09:00 11/10/24 11:00 DC 11/10/24 09:20 20 GM Lactulose (Constulose 20gm/ 30ml Udcup) 20 gm ONCE@1100 PO 11/10/24 11:00 11/10/24 13:00 DC 11/10/24 11:51 20 GM Lactulose (Constulose 20gm/ 30ml Udcup) 20 gm ONCE@1800 PO 11/09/24 18:00 11/09/24 20:00 DC 11/09/24 18:06 20 GM Lactulose (Constulose 20gm/ 30ml Udcup) 20 gm ONCE@2000 PO 11/09/24 20:00 11/09/24 22:00 DC 11/09/24 20:23 20 GM Lactulose (Constulose 20gm/ 30ml Udcup) 20 gm ONCE@2200 PO 11/09/24 22:00 11/09/24 23:59 DC 11/09/24 22:20 20 GM Lisinopril (Prinivil 20mg) 20 mg Q24H PO 11/07/24 14:00 12/07/24 13:59 11/07/24 14:07 20 MG Lorazepam (AtiVAN) 0.5 mg HS PO 11/07/24 21:00 12/07/24 20:59 11/11/24 22:21 0.5 MG Magnesium Sulfate 50 ml @ 0 mls/hr PROTOCOL PRN IV SLIDING SCALE COVERAGE 11/12/24 13:30 12/12/24 13:29 Metoprolol Succinate (TopROL XL) 100 mg Q24H PO 11/07/24 14:00 12/07/24 13:59 11/07/24 14:07 100 MG Mirtazapine (REMeron 15 MG TAB) 30 mg HS PO 11/07/24 21:00 12/07/24 20:59 11/11/24 22:20 30 MG Morphine Sulfate (MS CONtin 15MG) 15 mg Q12H PRN PO SEVERE PAIN (7-10) 11/07/24 13:00 11/12/24 12:59 DC 11/12/24 00:52 15 MG Morphine Sulfate (morPHINE 15MG IR TAB) 15 mg [id number] PRN PO pain 11/07/24 11:00 11/07/24 12:39 DC Morphine Sulfate (morPHINE 2MG SYG) 1 mg Q4H PRN IVP SEVERE PAIN (7-10) 11/09/24 17:30 11/09/24 23:54 DC Morphine Sulfate (morPHINE 4MG SYG) 1 mg Q4H PRN IVP SEVERE PAIN (7-10) 11/09/24 23:59 11/11/24 06:19 DC 11/10/24 23:41 1 MG Norepinephrine 250 ml @ 0 mls/hr PROTOCOL IV 11/11/24 16:30 12/11/24 16:29 11/11/24 23:35 25.9 MLS/HR Ondansetron HCl (zoFRAN 4MG INJ) 4 mg Q6H PRN IV NAUSEA/VOMITING 11/06/24 19:30 12/06/24 19:29 11/10/24 21:09 4 MG Pantoprazole Sodium (PROTonix 40MG INJ) 40 mg DAILY IVP 11/07/24 09:00 12/07/24 08:59 11/12/24 08:48 40 MG Pantoprazole Sodium (PROTonix 40MG TAB) 40 mg ACBKFST PO 01/05/25 07:30 11/11/24 06:20 DC Polyethylene Glycol/ Electrolytes (Golytely/Colyte Soln) 4,000 ml ONCE@1500 PO 11/10/24 15:00 11/10/24 21:00 DC 11/10/24 14:49 4,000 ML Potassium Chloride 100 ml @ 100 mls/hr AD PRN IV POTASSIUM PROTOCOL 11/11/24 06:00 12/11/24 05:59 11/11/24 06:05 100 MLS/HR Potassium Chloride (K-Dur/Klor-Con 20meq) 20 meq AD PRN PO POTASSIUM PROTOCOL 11/11/24 06:00 12/11/24 05:59 11/12/24 04:34 20 MEQ Potassium Chloride (KCl 10% Elixir 20meq/15ml) 20 meq AD PRN PO POTASSIUM PROTOCOL 11/11/24 06:00 12/11/24 05:59 11/12/24 08:48 20 MEQ Prednisone (deltaSONE/ oraSONE 5MG) 5 mg DAILY PO 11/08/24 09:00 12/08/24 08:59 11/12/24 08:46 5 MG Sodium Chloride 100 ml @ 0 mls/hr AD STAT IV 11/06/24 17:22 11/06/24 18:00 DC Tamsulosin HCl (FloMAX) 0.4 mg HS PO 11/07/24 21:00 12/07/24 20:59 11/11/24 22:21 0.4 MG DIAGNOSTICS / RADIOLOGY: PATIENT: JEANINE VILLALTA MR#: [id number] : 1945 SEX: M AGE: 79 LOCATION: ED ORDER STATUS: REG ER REPORT#: [id number] SERVICE 36 REASON: CHEST PAIN/SOB ORDERING PHYSICIAN: BINTA GELLER NP PROCEDURE: CXR1VW - CHEST 1VW EXAM: CR Chest, 1 View. CLINICAL HISTORY: CHEST PAIN/SOB COMPARISON: X-ray chest 03/20/2012 FINDINGS: LUNGS: The lungs show no infiltrate or other acute finding. PLEURAL SPACES: No pleural effusion or pneumothorax. MEDIASTINUM: The cardiomediastinal silhouette is within normal limits. Changes of median sternotomy BONES: No aggressive appearing osseous lesion seen. IMPRESSION: No acute cardiopulmonary pathology is evident. /[place] DICTATED BY: PAULINE ARANA MD DATE: 11/06/241655 ELECTRONICALLY SIGNED BY: PAULINE ARANA MD DATE: 11/06/241655 PATIENT: JEANINE VILLALTA MR#: [id number] : 1945 SEX: M AGE: 79 LOCATION: [facility] ORDER 100 STATUS: ADM IN REPORT#: [id number] SERVICE 1003 REASON: right arm swelling ORDERING PHYSICIAN: SHARON LORENZO MD PROCEDURE: VENOUS MARC - US VENOUS DOPPLER BILATERAL US VENOUS DOPPLER BILATERAL REASON: right arm swelling COMPARISON: None Technique: Bilateral venous doppler ultrasound was performed with spectral analysis and color flow imaging technique. FINDINGS: There is a normal appearance of the common femoral, deep femoral, the profunda femoris and popliteal veins. Proximal calf veins appear normal as well. There is normal response to compression and augmentation. There is no evidence of deep venous thrombosis. IMPRESSION: Normal bilateral lower extremity venous Doppler ultrasound. DICTATED BY: GIULIANA WHITNEY MD DATE: 11/08/24 1207 ELECTRONICALLY SIGNED BY: GIULIANA WHITNEY MD DATE: 11/08/24 1210 ASSESSMENT: Acute kidney injury POA Normocytic normochromic anemia POA Positive fecal occult blood Swelling of left fingers Hypertension POA Hypernatremia Hypokalemia Hypotension-improved POA Hyperlipidemia POA Prostate cancer POA Chronic back pain with surgeries x3 POA Aortic valve replacement POA Constipation POA Right eye artificial implant POA PLAN: Acute kidney injury POA His blood work showed that the BUN is 12 and creatinine is 1.4. On 11/12/2019 Today, BUN 14 and creatinine 1.2 Urinary bladder scan from yesterday showed 43 mL. Needs strict I&O. Avoid nephrotoxic drugs. Maintain map above 65 We will get urine electrolytes and creatinine Normocytic normochromic anemia POA His blood work show that Hb is 11, HCT is 34.5, MCV is 100.3, RDW is 14.8 Iron panel show iron 51, TIBC is 184, % saturation is 27.7. Will repeat his labs tomorrow. Positive fecal occult blood His fecal occult blood is positive. We consulted gastroenterology and they recommended endoscopy. He underwent a endoscopy today which showed acute gastritis, LA Grade B reflux e sophagitis with no bleeding, normal duodenal bulb and 2nd portion of duodenum. Gastroenterology recommended to start clear liquid diet for today, he uses omeprazole 40 mg p.o. daily for 8 weeks, follow up with them in 2 weeks and colonoscopy in 2 days. He was scheduled for a colonoscopy today but was canceled due to an episode of hypotension. Swelling of left fingers He complained of swelling in the left fingers. We did a US of bilateral upper limbs and it show no evidence of DVT. Transient hypotension-improved POA Patient developed a hypotensive episode with blood pressure 77/46 yesterday. He was started on Levophed. His blood pressure is stable today 124/61. Cortisol a.m. and cosyntropin stimulation ACTH tests have been ordered. He is not having any symptoms. Will monitor his blood pressure. Hypokalemia Potassium 3.2 with creatinine 1.2 Patient is maintained on potassium protocol. Hypernatremia(resolved) Today his blood work show that the sodium is 141. Patient was given D5 water at 25ml/hr due to hypernatremia. Will repeat the labs tomorrow. Hyperlipidemia POA Continue Atorvastatin and clopidogrel. Prostate cancer POA Chronic back pain with surgeries x3 POA He complained of pain. His pain is controlled with narco. His ALP is 901 (11/12/2024). Constipation POA Continue lactulose PRN. He is on heart healthy diet. GI prophylaxis with pantoprazole. DVT prophylaxis with SCD. ATTESTATION BY PHYSICIAN I have seen and examined the patient. I reviewed the documentation, medical decision making, and treatment plan as noted by the resident above. I agree with the findings and plan of care. ALISSA RODRIGEZ MD, MUHAMMAD H MD Nov 12, 2024 13:48
[2024-11-12] MEDS: MAGNESIUM 2GM PREMIX 50ML 50 ML IV PRN (14:20)
--- NOTE | 2024-11-12 16:12 | HMCIMG ---
EXAM: CR Chest, 1 View. CLINICAL HISTORY: elevated BNP, concern for CHF COMPARISON: November 06, 2024 FINDINGS: LUNGS: Left basilar consolidation and pleural effusion was noted. PLEURAL SPACES: Moderate left effusion. Right PICC line is in the right axillary region MEDIASTINUM: Cardiac size and mediastinal contours within normal limits. BONES: No aggressive appearing osseous lesion seen. IMPRESSION: Left basilar consolidation and pleural effusion /[place]
--- NOTE | 2024-11-12 16:50 | NUR ---
TAKEN OFF UNIT FOR CT SCAN
[2024-11-13] VITALS (8 sets, daily range): BP systolic 105–154; BP diastolic 54–75; PULSE 84–110; RESP 16–19; TEMP 98.3–99.9; O2SAT 95–98
--- NOTE | 2024-11-13 01:00 | HMCSR ---
APPROVED REPORT EXAM: Two-dimensional and M-mode echocardiogram with Doppler and color Doppler. INDICATION ICD: assess cardiac function 2D Dimensions RVDd3.1 cmLVEF(%)63.4 (>50%)LVED Vol(simp.)126.0 mL IVSd1.2 (0.7-1.1cm)FS(%)34 %LVES Vol(simp.)61.0 mL LVDd4.8 (3.8-5.6cm)LA (2D)3.5 (1.6-4.0cm)LVEF(%, simp.)52 % PWd1.0 (0.7-1.1cm)Ao Root(2D)2.9 (2.0-3.7cm)LA ESV INDEX (BP)33.79 mL/m2 LVDs3.1 (2.5-4.0cm)LVOT diam2.0 (1.8-2.4cm) Deformation Strain Apical 4-15.7 % Apical 2-16.2 % Apical 3-16.4 % Global Strain-16.1 % M-Mode Dimensions EPSS0.8 cm LA (MM)3.6 (1.6-4.0cm) Ao Root(MM)3.0 (2.0-3.7cm) Aortic Valve AoV Vmax3.7 m/Kala Peak GR55.1 mmHgLVOT Vmax1.2 m/s AoV VTI0.8 mAo Mean GR33.0 mmHgLVOT VTI0.26 m SABIHA (VMAX)1.03 cm2Al P1/2T307 msAVA (VTI) 1.1 cm2 Mitral Valve MV E Vmax60.7 cm/sDECEL Cmbs473 ms MV A Vmax82.5 cm/sP 1/2 T45 ms E/A ratio0.7MVA (PHT)4.8 cm2 TDI E/E' Medial9.4E/E' Lateral6.1 Medial E' Peak V6.49 cm/sLateral E' Peak V9.88 cm/s Pulmonary Valve PV Vmax1.1 m/sPV VTI0.19 mPV Mean GR2.7 mmHg PV Peak GR4.5 mmHg Left Ventricle The left ventricle structure is normal in size. There is paradoxical septal wall motion noted. The ot her ruth are grossly normal in function. Mild concentric left ventricular hypertrophy. Left ventricu lar systolic function is normal, estimated LVEF is 55 to 60%. Grade 1 diastolic dysfunction. Right Ventricle The right ventricle is normal size. The right ventricular systolic function is normal. Atria The left atrium is mildly dilated, 34 mL/m. The right atrium size is normal. Aortic Valve The aortic valve has been replaced by a well-seated bioprosthetic valve. There is trivial perivalvula r leak noted. Mild aortic regurgitation. 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 The leaflets are mildly thickened and calcified. Trace mi tral regurgitation. There is no mitral valve stenosis. Tricuspid Valve The tricuspid valve is normal in structure and function. Trace tricuspid regurgitation. RVSP is melquiades l. Pulmonic Valve Pulmonic valve is not well visualized. Great Vessels The aortic root is normal in size. The IVC was not visualized. Pericardium No pericardial effusion. Conclusion The left atrium is mildly dilated, 34 mL/m. Mild concentric left ventricular hypertrophy. There is paradoxical septal wall motion noted. The other ruth are grossly normal in function. Left ventricular systolic function is normal, estimated LVEF is 55 to 60%. Grade 1 diastolic dysfunction. The aortic valve has been replaced by a well-seated bioprosthetic valve. There is trivial perivalvul ar leak noted. Mild aortic regurgitation. 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 Trace tricuspid regurgitation. RVSP is normal. No pericardial effusion.
[2024-11-13 05:59] LABS: NUCLEATED RED BLOOD CELLS 0.0 % (0.0-0.19); PLATELET COUNT (AUTO) 149.0 K/uL (130-400); RED BLOOD CELL COUNT(AUTO) 3.16 MIL/uL (4.50-6.20); RED CELL DISTRIBUTION WIDTH 15.0 % (11.0-15.5); WHITE BLOOD COUNT (AUTO) 5.3 K/uL (4.8-10.8)
[2024-11-13 06:10] LABS: CREATININE 1.0 mg/dL (0.5-1.3); GLOMERULAR FILTR. RATE CALC 76.0 mL/min (>90); GLUCOSE,RANDOM 82.0 mg/dL (70-105); SODIUM SERUM 143.0 mmol/L (136-145); UREA NITROGEN, BLOOD 13.0 mg/dL (7-18)
--- NOTE | 2024-11-13 12:06 | HMCIMG ---
EXAMINATION: CT EXAMINATION OF THE CHEST WITHOUT CONTRAST CLINICAL HISTORY: Atelectasis left lower lobe. TECHNIQUE: Thin collimated axial CT images of the chest were obtained with sagittal and coronal reformatted images also submitted for interpretation. The total dose length product has been recorded in the electronic medical record. COMPARISON: None. FINDINGS: Central airways are patent. Chronic obstructive pulmonary disease changes. Subpleural linear scarring with fibroatelectatic bands in both lower lobes. Mild ground glass opacities in both upper lobes (series 3, image 20). There is no suspicious pulmonary nodule. There is no pleural or pericardial effusion. 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 There are atheromatous wall calcification of the aorta and coronary arteries. The ascending aorta measures 3.2 x 3.1 cm. There are subcentimetre precarinal and prevascular lymph nodes. There is no axillary or supraclavicular lymphadenopathy. Hilar jasmine stations are inadequately assessed without intravenous contrast. There is no focal thyroid abnormality. Limited noncontrast views of the upper abdomen demonstrate no acute findings. There is multilevel moderate degenerative spondylosis. Mild bibasilar dependent atelectasis. Multiple sclerotic osseous throughout the spine and the ribs with likely represent metastasis. IMPRESSION: Mild ground glass opacities in both upper lobes ??? likely mild infection. Chronic obstructive pulmonary disease changes. Subpleural linear scarring with fibroatelectatic bands in both lower lobes. Multiple sclerotic osseous throughout the spine and the ribs with likely represent metastasis. /[place]
--- NOTE | 2024-11-13 15:02 | PN ---
[facility] PROGRESS NOTE Date of Service: Nov 13, 2024 Time of Service: 9:10 SUBJECTIVE: This is an 79 year old male past medical history of hypertension, hyperlipidemia, prostate cancer with past surgical history of back surgery times X3, right eye artificial implant and AVR who was brought by EMS [facility] for complaints of hypotension and generalized body weakness. Nata babcock was at bedside during my evaluation and states that patient has been doing fine and had a follow-up appointment yesterday at the [facility] and today he has another appointment with his primary care doctor at the [facility] and for the past two days patient has been getting up early in the morning not get much rest as per daughter. Today while at the [facility] for routine checkup his systolic blood pressure was in the 80s and patient appeared weak so he was sent to the ED for evaluation.On ER arrival ECG was taken and result showed sinus rhythm HR64 with repolarization abnormalities suggests Ischemia anterolateral .V/S T97.9,HR64,BP115/56,Sat 99%RA. On examination,patient is awake,alert and coherent and appears comfortable .Patient denies fever,nausea,vomiting,dizziness,chest pain,palpitation,cough and shortness of breath.As per daughter ,patient has a good appetite and drinking fl uid as well but because of his medication that he is taking for his cancer ,he has been having hot flushes and sweating a lot she said and has been told that it is an expected side effect of his drug as per [facility].Patient also reports being constipated because of his pain meds for his chronic back pain and last BM was 3 days ago and it was a normal in color.Patient denies Kidney problem before.Labs : WBC 7, neutrophils 86, hemoglobin 12, hematocrit 37, platelet count 257. BUN 28, creatinine 1.3, GFR 56, glucose 128 lactic acid 2.2 troponin 19. Chest x- ray no acute cardiopulmonary pathology is evident. While in the ER patient received 2 L NS bolus bolus, Rocephin 2 g IV, calcium replacement of 1 g IV. The patient is admitted for further management. 11/07/2024: Patient is seen and evaluated in the ER. He complained of pain. His vitals signs are in the normal range. His labs are normal except for Hb is 12.5, HCT is 36 MCV is 101.7, chloride is 112, iron is 51, TIBC 184, %saturation is 27.7 ALP is 1107. We resumed his home meds. Narco is added which relieved the pain. We will continue to monitor his blood pressure and we are also planning to discharge him tomorrow. 11/08/2024: Patient is seen and evaluated in room 408. He has no symptoms today. His vitals signs are in the normal range. His labs are normal except for Hb is 10.4, HCT is 32.4, MCV is 100.3, ALP is 971. His fecal occult blood is positive. So GI was consulted and we are waiting for their recommendations. He also complained swelling in the left fingers. We did a USG doppler of both upper limbs and it showed no evidence of DVT. 11/09/2024: Patient is seen and evaluated in the room 408. He has no symptoms today. His vital signs are in the normal range except for blood pressure is 153/68. His labs are in the normal range except for Hb is 10.2, sodium is 147, chloride is 114, ALP is 869. He underwent a endoscopy today which showed acute gastritis, LA Grade B reflux esophagitis with no bleeding, normal duodenal bulb and 2nd portion of duodenum. Gastroenterology recommended to start clear liquid diet for today, he uses omeprazole 40 mg p.o. daily for 8 weeks, follow up with them in 2 weeks and colonoscopy in 2 days. He is scheduled for a colonoscopy on Tuesday11/10/2024: Patient is seen and evaluated in the room 408. He has no symptoms today. His vitals are in the normal range. His labs are normal except for Hb is 11, sodium is 146, ALP is 902, potassium is 3.4. He is scheduled for a colonoscopy tomorrow. 11/11/2024: He was evaluated at the bedside this morning. He is AAO x3. he was lying comfortably on the bed without complaint other than back pain. He is hemodynamically stable with BP at 99/53 mm of Hg. Remarkable lab is for potassium 2.6, creatinine 1.4 ALP 902, sodium 144, chloride 107. He was sched uled for colonoscopy today for positive FOBT but it could not happen because of inadequate bowel preparation. We will give 40 mEq of potassium IV with the eye on IRISH and repeat the BMP. He is on dextrose 25 ml/hr. We will get bladder scan to rule out urinary retention leading to IRISH. He may needs urinary catheter and strict I and O if he retains the urine. We will also get speech evaluation tomorrow. Rest of the plan as discussed below 11/12/2024: He was evaluated at the bedside this morning. He is AAO x3 and has a resting tremor bilaterally in upper extremities which as per patient's has been present before admission. His BP dropped overnight to 77/46 due to which colonoscopy prep was called off, a rapid response was called, patient was shifted to ICU and was started on Levophed. This morning, he is vitally stable with BP 124/61, HR 75bpm. BNP from yesterday came back elevated at 503 for which CXR and echo have been ordered. Creatinine trended downwards from 1.5 yesterday to 1.2 today. For further evaluation of underlying cause of hypotension, cortisol AM and cosyntropin ACTH stimulation test have been placed. 11/13/2024: He was evaluated at the bedside this morning. He is vitally stable with blood pressure 154/63, 89 beats per minute. His chest x-ray from yesterday revealed left basilar consolidation with effusion. It was followed by CT chest which showed mild ground-glass opacities in both upper lobes concerning for mild infection. Patient has been switched from Rocephin to cefepime. He is otherwise afebrile with WBC 5.3. Patient was accompanied by his daughter. She expressed concerns regarding not undergoing repeat colonoscopy. It was communicated to nurse. Awaiting consult from GI. REVIEW OF SYSTEMS CONSTITUTIONAL: Swelling of left fingers. Denies fevers, chills, or night sweats. No unintentional weight loss reported. NEUROLOGICAL: Resting tremors in upper extremities. Rigidity. Denies hea dache, amaurosis fugax,sensory deficit, vertigo/spinning sensation, gait abnormalities. ENT: No hearing loss, otalgia, otorrhea, rhinitis, rhinorrhea, hoarseness, or sore throat. CARDIOVASCULAR: Denies any exertional angina, dyspnea on exertion, orthopnea, paroxysmal nocturnal dyspnea, palpitations, life-threatening arrhythmias, claudication. PULMONARY: Denies any shortness of breath, cough, phlegm/sputum, hemoptysis, pleuritic chest pain. SLEEP: Denies morning headaches, daytime somnolence or napping. Denies difficulty falling asleep, staying asleep, waking from sleep. Denies knowledge of snoring. GASTROINTESTINAL: Denies any type of dysphagia to either liquids or solids. Denies nausea, vomiting, pyrosis, early satiety, abdominal pain, diarrhea, con stipation, or changes in stool consistency or caliber. Denies coffee-ground emesis, hematemesis, hematochezia, or melanotic stools. GENITOURINARY: Denies frequency, urgency, nocturia, hematuria or incontinence (Storage/Irritative symptoms.) Low urinary stream, straining to void, urinary intermittency or hesitancy, splitting of the voiding stream, terminal dribbling. ENDOCRINOLOGIC: Denies polyuria, polydipsia, polyphagia or heat/cold intolerances. HEMATOLOGIC: Denies thrombophilia/previous clots, or coagulopathy/bleeding disorders. DERMATOLOGIC: Denies rashes or pruritus. PSYCHIATRIC: Denies any suicidal or homicidal ideation. Denies hallucinations. PHYSICAL EXAM GENERAL APPEARANCE: The patient is awake, alert, and oriented, in no acute cardiopulmonary distress. NEUROLOGICAL: Resting tremors in upper extremities. Rigidity. Cranial nerves II-XII grossly intact. Motor is 5/5 in bilateral upper and lower extremities proximal to distal. No sensory deficits. HEENT: Face is symmetric. Extraocular movement is intact. NECK: Supple. No JVD. No thyromegaly. No submental, submandibular, pre- /postauricular, occipital or supraclavicular lymphadenopathy. CHEST: Normal chest expansion. No Telemetry. LUNGS: Absence of any rales, rhonchi or any wheezing. CARDIOVASCULAR: Regular. S1 and S2 normal. No appreciable rubs, murmurs or gallops. ABDOMEN: Soft, nontender, and nondistended. There is no rebound, voluntary guarding, or rigidity. : Deferred. No Robles. EXTREMITIES: Swelling of fingers on the left Non-edematous and not cyanotic. No clubbing. Good capillary refill. SKIN: No skin breakdown. Vital Signs (last 8hr) Date Time Temp Pulse Resp B/P (MAP) Pulse Ox O2 Delivery O2 Flow Rate FiO2 11/13/24 11:07 98.2 110 16 105/54 93 Room Air 11/13/24 10:51 98 Room Air* 0 21 11/13/24 07:55 98.4 84 16 127/58 98 Room Air LABS: Laboratory: Test 11/13/24 05:36 11/12/24 03:37 11/11/24 16:22 11/11/24 16:06 Range/Units White Blood Count 5.3 4.8-10.8 K/uL Red Blood Count 3.16 L 4.50-6.20 MIL/uL Hemoglobin 10.3 L 14.0-18.0 g/dL Hematocrit 32.0 L 42-54 % Mean Corpuscular Volume 101.3 H 79-99 fL Mean Corpuscular Hemoglobin 32.6 27.0-33.0 pg Mean Corpuscular Hemoglobin Concent 32.2 32.0-36.0 g/dL Red Cell Distribution Width 15.0 11.0-15.5 % Platelet Count 149 130-400 K/uL Mean Platelet Volume 9.1 7.5-10.5 fL Nucleated Red Blood Cells 0.0 0.0-0.19 % Sodium Level 143 136-145 mmol/L Potassium Level 4.6 3.5-5.1 mmol/L Chloride Level 110 101-111 mmol/L Carbon Dioxide Level 25 21-32 mmol/L Blood Urea Nitrogen 13 7-18 mg/dL Creatinine 1.0 0.5-1.3 mg/dL Glomerular Filtration Rate Calc 76 >90 mL/min Random Glucose 82 70-105 mg/dL Total Calcium 7.4 L 8.5-10.1 mg/dL C-Reactive Protein, Quantitative 79.60 H 0.5-3.0 mg/L Immature Granulocyte % (Auto) 1.3 H 0-1 % Neutrophils (%) (Auto) 79.9 H 40.0-77.0 % Lymphocytes (%) (Auto) 8.3 L 21.0-51.0 % Monocytes (%) (Auto) 7.7 3.0-13.0 % Eosinophils (%) (Auto) 2.3 0.0-8.0 % Basophils (%) (Auto) 0.5 0.0-5.0 % Neutrophils # (Auto) 5.1 1.8-7.7 K/uL Lymphocytes # (Auto) 0.5 L 1.0-4.8 K/uL Monocytes # (Auto) 0.5 0.1-1.0 K/uL Eosinophils # (Auto) 0.15 0.00-0.70 K/uL Basophils # (Auto) 0.03 0.00-0.20 K/uL Absolute Immature Granulocyte (auto 0.08 0-1 K/uL Magnesium Level 1.80 1.80-2.40 mg/dL Whole Blood Glucose 104 70-110 MG/DL Lactic Acid Level 1.7 0.8-2.5 mmol/L Total Bilirubin 0.5 0.2-1.0 mg/dL Aspartate Amino Transf (AST/SGOT) 63 H 10-37 U/L Alanine Aminotransferase (ALT/SGPT) 33 12-78 U/L Alkaline Phosphatase 901 *H 50-136 U/L B-Type Natriuretic Peptide 503 H 0-100 pg/mL Total Protein 5.2 L 6.0-8.3 g/dL Albumin 2.1 L 3.5-5.0 g/dL Current Medications Medications (Trade) Dose Ordered Sig/Brodie Route PRN Reason Start Time Stop Time Status Last Admin Dose Admin Acetaminophen/ Hydrocodone Bitart (NORco 5/325MG) 1 tab Q6H PRN PO MODERATE PAIN (4-6) 11/07/24 12:30 11/12/24 12:29 DC 11/11/24 18:23 1 TAB Atorvastatin Calcium (LIPItor 40MG) 40 mg DAILY PO 11/08/24 09:00 12/08/24 08:59 11/13/24 08:23 40 MG Bisacodyl (DulcoLAX 5MG TAB) 10 mg ONCE@1999 PO 11/09/24 20:00 11/09/24 22:00 DC 11/09/24 20:23 10 MG Bisacodyl (DulcoLAX 5MG TAB) 10 mg ONCE@1999 PO 11/10/24 20:00 11/11/24 06:20 DC 11/10/24 20:58 10 MG Buspirone HCl (BUspar) 10 mg QID PO 11/07/24 13:00 12/07/24 12:59 11/13/24 14:10 10 MG Calcium Gluconate (Calcium Gluc 1gm Vial) 1 gm PROTOCOL STAT IVPB 11/06/24 17:18 11/06/24 17:23 DC Calcium Gluconate (Calcium Gluc 1gm Vial) 1 gm PROTOCOL STAT IVPB 11/06/24 20:10 11/06/24 20:12 DC 11/06/24 20:23 1 GM Cefepime HCl (MAXipime 2 gm vial) 2 gm Q12H IVPB 11/13/24 11:30 11/23/24 11:29 11/13/24 14:10 2 GM Ceftriaxone Sodium (ROCEphine 1G INJ) 1 gm Q24H IVPB 11/07/24 09:00 11/13/24 11:24 DC 11/13/24 08:24 1 GM Ceftriaxone Sodium (Rocephin 2gm Inj) 2 gm ONCE STAT IVPB 11/06/24 15:50 11/06/24 15:52 DC 11/06/24 16:06 2 GM Clopidogrel Bisulfate (plaVIX 75MG) 75 mg DAILY PO 11/08/24 09:00 11/11/24 06:19 DC Fluoxetine HCl (FLUoxetine HCL 20 MG CAPSULE) 20 mg HS PO 11/07/24 21:00 12/07/24 20:59 11/12/24 20:36 20 MG Fluoxetine HCl (FLUoxetine HCL 20 MG CAPSULE) 40 mg DAILY PO 11/08/24 09:00 12/08/24 08:59 11/13/24 08:24 40 MG Home Med (Home Medication) (Melatonin/ Pyridoxine (Melato... HS PO 11/07/24 21:00 12/07/24 20:59 Hydromorphone HCl (DiLAUDid 0.5MG INJ) 0.2 mg Q2H PRN IVP SEVERE PAIN (7-10) IF NPO 11/12/24 09:30 11/12/24 09:43 DC Hydromorphone HCl (DiLAUDid 0.5MG INJ) 0.5 mg Q2H PRN IVP SEVERE PAIN (7-10) IF NPO 11/12/24 10:00 11/17/24 09:59 11/13/24 14:15 0.5 MG Isosorbide Mononitrate (Ismo) 60 mg AM PO 11/07/24 14:00 12/07/24 13:59 11/13/24 08:23 60 MG Isosorbide Mononitrate (Ismo) 60 mg Q24H PO 11/07/24 14:00 11/07/24 13:54 DC Lactated Ringer's 1,000 ml @ 75 mls/hr [id number] IV 11/06/24 19:30 12/06/24 19:29 11/13/24 10:32 75 MLS/HR Lactulose (Constulose 20gm/ 30ml Udcup) 20 gm BID PRN PO CONSTIPATION 11/06/24 19:30 12/06/24 19:29 11/10/24 17:23 20 GM Lactulose (Constulose 20gm/ 30ml Udcup) 20 gm ONCE@0700 PO 11/10/24 07:00 11/10/24 09:00 DC 11/10/24 07:44 20 GM Lactulose (Constulose 20gm/ 30ml Udcup) 20 gm ONCE@0900 PO 11/10/24 09:00 11/10/24 11:00 DC 11/10/24 09:20 20 GM Lactulose (Constulose 20gm/ 30ml Udcup) 20 gm ONCE@1100 PO 11/10/24 11:00 11/10/24 13:00 DC 11/10/24 11:51 20 GM Lactulose (Constulose 20gm/ 30ml Udcup) 20 gm ONCE@1800 PO 11/09/24 18:00 11/09/24 20:00 DC 11/09/24 18:06 20 GM Lactulose (Constulose 20gm/ 30ml Udcup) 20 gm ONCE@2000 PO 11/09/24 20:00 11/09/24 22:00 DC 11/09/24 20:23 20 GM Lactulose (Constulose 20gm/ 30ml Udcup) 20 gm ONCE@2200 PO 11/09/24 22:00 11/09/24 23:59 DC 11/09/24 22:20 20 GM Lisinopril (Prinivil 20mg) 20 mg Q24H PO 11/07/24 14:00 12/07/24 13:59 11/07/24 14:07 20 MG Lorazepam (AtiVAN) 0.5 mg HS PO 11/07/24 21:00 12/07/24 20:59 11/12/24 20:36 0.5 MG Magnesium Sulfate 50 ml @ 0 mls/hr PROTOCOL PRN IV SLIDING SCALE COVERAGE 11/12/24 13:30 12/12/24 13:29 11/12/24 14:20 25 MLS/HR Metoprolol Succinate (TopROL XL) 100 mg Q24H PO 11/07/24 14:00 12/07/24 13:59 11/13/24 14:10 100 MG Mirtazapine (REMeron 15 MG TAB) 30 mg HS PO 11/07/24 21:00 12/07/24 20:59 11/12/24 20:36 30 MG Morphine Sulfate (MS CONtin 15MG) 15 mg Q12H PRN PO SEVERE PAIN (7-10) 11/07/24 13:00 11/12/24 12:59 DC 11/12/24 00:52 15 MG Morphine Sulfate (morPHINE 15MG IR TAB) 15 mg [id number] PRN PO pain 11/07/24 11:00 11/07/24 12:39 DC Morphine Sulfate (morPHINE 2MG SYG) 1 mg Q4H PRN IVP SEVERE PAIN (7-10) 11/09/24 17:30 11/09/24 23:54 DC Morphine Sulfate (morPHINE 4MG SYG) 1 mg Q4H PRN IVP SEVERE PAIN (7-10) 11/09/24 23:59 11/11/24 06:19 DC 11/10/24 23:41 1 MG Norepinephrine 250 ml @ 0 mls/hr PROTOCOL IV 11/11/24 16:30 11/13/24 11:25 DC 11/11/24 23:35 25.9 MLS/HR Ondansetron HCl (zoFRAN 4MG INJ) 4 mg Q6H PRN IV NAUSEA/VOMITING 11/06/24 19:30 12/06/24 19:29 11/10/24 21:09 4 MG Pantoprazole Sodium (PROTonix 40MG INJ) 40 mg DAILY IVP 11/07/24 09:00 12/07/24 08:59 11/13/24 08:23 40 MG Pantoprazole Sodium (PROTonix 40MG TAB) 40 mg ACBKFST PO 01/05/25 07:30 11/11/24 06:20 DC Polyethylene Glycol/ Electrolytes (Golytely/Colyte Soln) 4,000 ml ONCE@1500 PO 11/10/24 15:00 11/10/24 21:00 DC 11/10/24 14:49 4,000 ML Potassium Chloride 100 ml @ 100 mls/hr AD PRN IV POTASSIUM PROTOCOL 11/11/24 06:00 12/11/24 05:59 11/12/24 17:18 100 MLS/HR Potassium Chloride (K-Dur/Klor-Con 20meq) 20 meq AD PRN PO POTASSIUM PROTOCOL 11/11/24 06:00 12/11/24 05:59 11/12/24 04:34 20 MEQ Potassium Chloride (KCl 10% Elixir 20meq/15ml) 20 meq AD PRN PO POTASSIUM PROTOCOL 11/11/24 06:00 12/11/24 05:59 11/12/24 14:18 20 MEQ Prednisone (deltaSONE/ oraSONE 5MG) 5 mg DAILY PO 11/08/24 09:00 12/08/24 08:59 11/13/24 08:24 5 MG Sodium Chloride 100 ml @ 0 mls/hr AD STAT IV 11/06/24 17:22 11/06/24 18:00 DC Tamsulosin HCl (FloMAX) 0.4 mg HS PO 11/07/24 21:00 12/07/24 20:59 11/12/24 20:36 0.4 MG DIAGNOSTICS / RADIOLOGY: [ ]PATIENT: JEANINE VILLALTA MR#: [id number] : 1945 SEX: M AGE: 79 LOCATION: [facility] ORDER 37 STATUS: [facility] REPORT#: [id number] SERVICE 36 REASON: CHEST PAIN/SOB ORDERING PHYSICIAN: BINTA GELLER NP PROCEDURE: CXR1VW - CHEST 1VW EXAM: CR Chest, 1 View. CLINICAL HISTORY: CHEST PAIN/SOB COMPARISON: X-ray chest 03/20/2012 FINDINGS: LUNGS: The lungs show no infiltrate or other acute finding. PLEURAL SPACES: No pleural effusion or pneumothorax. MEDIASTINUM: The cardiomediastinal silhouette is within normal limits. Changes of median sternotomy BONES: No aggressive appearing osseous lesion seen. IMPRESSION: No acute cardiopulmonary pathology is evident. /[place] DICTATED BY: PAULINE ARANA MD DATE: 11/06/241655 ELECTRONICALLY SIGNED BY: PAULINE ARANA MD DATE: 11/06/24 8407 PATIENT: JEANINE VILLALTA MR#: [id number] : 1945 SEX: M AGE: 79 LOCATION: [facility] ORDER 100 STATUS: ADM IN REPORT#: [id number] SERVICE 1003 REASON: right arm swelling ORDERING PHYSICIAN: SHARON LORENZO MD PROCEDURE: VENOUS MARC - US VENOUS DOPPLER BILATERAL US VENOUS DOPPLER BILATERAL REASON: right arm swelling COMPARISON: None Technique: Bilateral venous doppler ultrasound was performed with spectral analysis and color flow imaging technique. FINDINGS: There is a normal appearance of the common femoral, deep femoral, the profunda femoris and popliteal veins. Proximal calf veins appear normal as well. There is normal response to compression and augmentation. There is no evidence of deep venous thrombosis. IMPRESSION: Normal bilateral lower extremity venous Doppler ultrasound. DICTATED BY: GIULIANA WHITNEY MD DATE: 11/08/24 1207 ELECTRONICALLY SIGNED BY: GIULIANA WHITNEY MD DATE: 11/08/24 1210 ASSESSMENT: Acute kidney injury POA Normocytic normochromic anemia POA Positive fecal occult blood Swelling of left fingers Hypertension POA Hypernatremia Hypokalemia Hypotension-improved POA Hyperlipidemia POA Prostate cancer POA Chronic back pain with surgeries x3 POA Aortic valve replacement POA Constipation POA Right eye artificial implant POA PLAN: Acute kidney injury POA His blood work showed that the BUN is 12 and creatinine is 1.4. On 11/12/2019 Today, BUN 13 and creatinine 1 Urinary bladder scan on 11/11/24 showed 43 mL. Needs strict I&O. Avoid nephrotoxic drugs. Maintain map above 65 We will get urine electrolytes and creatinine Normocytic normochromic anemia POA His blood work show that Hb is 11, HCT is 34.5, MCV is 100.3, RDW is 14.8 Iron panel show iron 51, TIBC is 184, % saturation is 27.7. Will repeat his labs tomorrow. Positive fecal occult blood His fecal occult blood is positive. We consulted gastroenterology and they recommended endoscopy. He underwent a endoscopy today which showed acute gastritis, LA Grade B reflux esophagitis with no bleeding, normal duodenal bulb and 2nd portion of duodenum. Gastroenterology recommended to start clear liquid diet for today, he uses omeprazole 40 mg p.o. daily for 8 weeks, follow up with them in 2 weeks and colonoscopy in 2 days. He was scheduled for a colonoscopy but was canceled due to an episode of hypotension. Awaiting further GI recommendation Swelling of left fingers He complained of swelling in the left fingers. We did a US of bilateral upper limbs and it show no evidence of DVT. Transient hypotension-improved POA Patient developed a hypotensive episode with blood pressure 77/46 yesterday. He was started on Levophed. His blood pressure is stable today 154/63. Cortisol a.m. and cosyntropin stimulation ACTH tests have been ordered. He is not having any symptoms. Will monitor his blood pressure. Hypokalemia Potassium 4.6 with creatinine 1 Patient is maintained on potassium protocol. Hypernatremia(resolved) Today his blood work show that the sodium is 143. Patient was given D5 water at 25ml/hr due to hypernatremia. Will repeat the labs tomorrow. Hyperlipidemia POA Continue Atorvastatin and clopidogrel. Prostate cancer POA Chronic back pain with surgeries x3 POA He complained of pain. His pain is controlled with narco. His ALP is 901 (11/12/2024). Constipation POA Continue lactulose PRN. He is on heart healthy diet. GI prophylaxis with pantoprazole. DVT prophylaxis with SCD. ATTESTATION BY PHYSICIAN I have seen and examined the patient. I reviewed the documentation, medical decision making, and treatment plan as noted by the resident above. I agree with the findings and plan of care. ALISSA RODRIGEZ MD, MUHAMMAD H MD Nov 13, 2024 15:02
--- NOTE | 2024-11-13 15:44 | NUR ---
per dr welch to cancel colonoscopy
--- NOTE | 2024-11-13 18:38 | PN ---
[facility] PROGRESS NOTE Date Patient Seen: Nov 13, 2024 Time of Visit: 1316 Supervising Physician: Dr. Lou Inpatient Consults: BIS PROBLEM LIST: Acute Hypotensin Acute kidney injury POA Normocytic normochromic anemia POA Left ventricular ejection fraction 55-60% with grade diastolic dysfunction per echocardiogram 11/12/2024 COPD Positive fecal occult blood Swelling of left fingers Hypertension POA Hypernatremia Hypokalemia Transient hypotension-improved POA Hyperlipidemia POA Prostate cancer POA Chronic back pain with surgeries x3 POA Aortic valve replacement POA Constipation POA Right eye artificial implant POA INTERVAL HISTORY: 11/13 patient was seen and examined by bedside with family present. Patient is awake alert does answer questions appropriately. At time of visit patient is on room air appears to be tolerating well. Denies any chest pain or shortness of breadth. Denies any nausea vomiting or abdominal pain. CT chest reviewed by supervising physician and recommendations are for a repeat CT scan within 4-6 weeks. Patient will require a follow up with Dr. Dupont instrument maintenance supervisor upon discharge. Continue with current IV antibiotics. Dispo per primary team. As per primary nurse no acute events to be reported Plan summary Continue to monitor respiratory status and maintain adequate oxygenation Patient will require a repeat CT scan without contrast within 4-6 weeks upon discharge Patient will need to follow up with instrument maintenance supervisor Dr. Dupont upon discharge within 3-5 days Maintain adequate oxygenation Keep O2 sats greater or equal to 90% Continue with current IV antibiotics Dispo per primary team REVIEW OF SYSTEMS: 12 point ROS reviewed with patient. Pertinent positives mentioned above. Otherwise negative. PHYSICAL EXAM: GENERAL: alert, weak, awake oriented x 3 HEENT: EOMI, Sclera non icteric, moist mucosa NECK: Supple, no JVD, trachea midline LUNGS: Clear breath sounds bilaterally. No wheezes HEART: Regular rate and rhythm. Normal S1 and S2, without murmurs ABD: Abdomen soft, nontender. Bowel sounds present EXT: No clubbing cyanosis or edema NEURO: Alert and oriented to person, follows commands Vital Signs (last 8hr) Date Time Temp Pulse Resp B/P (MAP) Pulse Ox O2 Delivery O2 Flow Rate FiO2 11/13/24 16:04 98.2 88 18 116/64 97 Room Air 11/13/24 11:07 98.2 110 16 105/54 93 Room Air 11/13/24 10:51 98 Room Air* 0 21 LABS: Hematology Labs: Test 11/13/24 05:36 11/12/24 03:37 Range/Units White Blood Count 5.3 4.8-10.8 K/uL Red Blood Count 3.16 L 4.50-6.20 MIL/uL Hemoglobin 10.3 L 14.0-18.0 g/dL Hematocrit 32.0 L 42-54 % Mean Corpuscular Volume 101.3 H 79-99 fL Mean Corpuscular Hemoglobin 32.6 27.0-33.0 pg Mean Corpuscular Hemoglobin Concent 32.2 32.0-36.0 g/dL Red Cell Distribution Width 15.0 11.0-15.5 % Platelet Count 149 130-400 K/uL Mean Platelet Volume 9.1 7.5-10.5 fL Nucleated Red Blood Cells 0.0 0.0-0.19 % Immature Granulocyte % (Auto) 1.3 H 0-1 % Neutrophils (%) (Auto) 79.9 H 40.0-77.0 % Lymphocytes (%) (Auto) 8.3 L 21.0-51.0 % Monocytes (%) (Auto) 7.7 3.0-13.0 % Eosinophils (%) (Auto) 2.3 0.0-8.0 % Basophils (%) (Auto) 0.5 0.0-5.0 % Neutrophils # (Auto) 5.1 1.8-7.7 K/uL Lymphocytes # (Auto) 0.5 L 1.0-4.8 K/uL Monocytes # (Auto) 0.5 0.1-1.0 K/uL Eosinophils # (Auto) 0.15 0.00-0.70 K/uL Basophils # (Auto) 0.03 0.00-0.20 K/uL Absolute Immature Granulocyte (auto 0.08 0-1 K/uL Chemistry Labs: Test 11/13/24 05:36 11/12/24 03:37 Range/Units Sodium Level 143 136-145 mmol/L Potassium Level 4.6 3.5-5.1 mmol/L Chloride Level 110 101-111 mmol/L Carbon Dioxide Level 25 21-32 mmol/L Blood Urea Nitrogen 13 7-18 mg/dL Creatinine 1.0 0.5-1.3 mg/dL Glomerular Filtration Rate Calc 76 >90 mL/min Random Glucose 82 70-105 mg/dL Total Calcium 7.4 L 8.5-10.1 mg/dL C-Reactive Protein, Quantitative 79.60 H 0.5-3.0 mg/L Magnesium Level 1.80 1.80-2.40 mg/dL DIAGNOSTICS / RADIOLOGY RESULTS: na PLAN NEURO: Minimize central acting medications as possible. Maintain fall precautions, adequate lighting during the day PULMONARY: Supplemental 02 as needed. Maintain aspiration precautions at all times CARDIOVASCULAR: Follow hemodynamics. Vital signs per facility protocol GI & NUTRITION: Continue with nutritional support. Continue stool softeners and laxatives as needed. KIDNEYS & ELECTROLYTES: Strict monitoring of intake, output and overall fluid balance. Avoid nephrotoxic medications to the extent possible. Medications to be dosed according to renal function. Monitor electrolytes and replace as needed ENDOCRINE: Maintain blood glucose between 100-180 at all times. Hypoglycemia protocol in place INFECTIOUS DISEASE: Trend temperature, WBC and procalcitonin level Follow cultures, deescalate antibiotics as soon as possible. Panculture if new onset fever ONCOLOGY/HEMATOLOGY/COAGULATION: Monitor for s/s of bleeding Monitor hemoglobin, coagulation studies as needed SKIN: Pressure ulcer prevention per facility protocol Specialty mattress ORTHO/REHAB: Continue PT/OT Prophylaxis: Continue GI and DVT prophylaxis Code Status: Full Resuscitation Disposition: Per primary team Other: Case discussed with supervising physician plan of care agreed upon MIGEL TIWARI Nov 13, 2024 18:38
[2024-11-14] VITALS (8 sets, daily range): BP systolic 106–166; BP diastolic 58–76; PULSE 69–79; RESP 15–18; TEMP 98–101.2; O2SAT 95–96
[2024-11-14 06:00] LABS: NUCLEATED RED BLOOD CELLS 0.0 % (0.0-0.19); PLATELET COUNT (AUTO) 160.0 K/uL (130-400); RED BLOOD CELL COUNT(AUTO) 3.17 MIL/uL (4.50-6.20); RED CELL DISTRIBUTION WIDTH 14.8 % (11.0-15.5); WHITE BLOOD COUNT (AUTO) 7.5 K/uL (4.8-10.8)
[2024-11-14 06:12] LABS: CREATININE 0.9 mg/dL (0.5-1.3); GLOMERULAR FILTR. RATE CALC 86.0 mL/min (>90); GLUCOSE,RANDOM 94.0 mg/dL (70-105); SODIUM SERUM 141.0 mmol/L (136-145); UREA NITROGEN, BLOOD 18.0 mg/dL (7-18)
[2024-11-14] MEDS: DOXYCYCLINE 100MG+NS 250ML 250 ML IV SCH (09:06)
--- NOTE | 2024-11-14 12:52 | PN ---
[facility] PROGRESS NOTE Date of Service: Nov 14, 2024 Time of Service: 8:20 SUBJECTIVE: This is an 79 year old male past medical history of hypertension, hyperlipidemia, prostate cancer with past surgical history of back surgery times X3, right eye artificial implant and AVR who [facility] complaints of hypotension and generalized body weakness. Nata babcock was at bedside during my evaluation and states that patient has been doing fine and had a follow-up appointment yesterday at the [facility] and today he has another appointment with his primary care doctor at the OR and for the past two days patient has been getting up early in the morning not get much rest as per daughter. Today while at the OR for routine checkup his systolic blood pressure was in the 80s and patient appeared weak so he was sent to the ED for evaluation.On ER arrival ECG was taken and result showed sinus rhythm HR64 with repolarization abnormalities suggests Ischemia anterolateral .V/S T97.9,HR64,BP115/56,Sat 99%RA. On examination,patient is awake,alert and coherent and appears comfortable .Patient denies fever,nausea,vomiting,dizziness,chest pain,palpitation,cough and shortness of breath.As per daughter ,patient has a good appetite and drinking fl uid as well but because of his medication that he is taking for his cancer ,he has been having hot flushes and sweating a lot she said and has been told that it is an expected side effect of his drug as per Onco.Patient also reports being constipated because of his pain meds for his chronic back pain and last BM was 3 days ago and it was a normal in color.Patient denies Kidney problem before.Labs : WBC 7, neutrophils 86, hemoglobin 12, hematocrit 37, platelet count 257. BUN 28, creatinine 1.3, GFR 56, glucose 128 lactic acid 2.2 troponin 19. Chest x- ray no acute cardiopulmonary pathology is evident. While in the ER patient received 2 L NS bolus bolus, Rocephin 2 g IV, calcium replacement of 1 g IV. The patient is admitted for further management. 11/07/2024: Patient is seen and evaluated in the ER. He complained of pain. His vitals signs are in the normal range. His labs are normal except for Hb is 12.5, HCT is 36 MCV is 101.7, chloride is 112, iron is 51, TIBC 184, %saturation is 27.7 ALP is 1107. We resumed his home meds. Narco is added which relieved the pain. We will continue to monitor his blood pressure and we are also planning to discharge him tomorrow. 11/08/2024: Patient is seen and evaluated in room 408. He has no symptoms today. His vitals signs are in the normal range. His labs are normal except for Hb is 10.4, HCT is 32.4, MCV is 100.3, ALP is 971. His fecal occult blood is positive. So GI was consulted and we are waiting for their recommendations. He also complained swelling in the left fingers. We did a USG doppler of both upper limbs and it showed no evidence of DVT. 11/09/2024: Patient is seen and evaluated in the room 408. He has no symptoms today. His vital signs are in the normal range except for blood pressure is 153/68. His labs are in the normal range except for Hb is 10.2, sodium is 147, chloride is 114, ALP is 869. He underwent a endoscopy today which showed acute gastritis, LA Grade B reflux esophagitis with no bleeding, normal duodenal bulb and 2nd portion of duodenum. Gastroenterology recommended to start clear liquid diet for today, he uses omeprazole 40 mg p.o. daily for 8 weeks, follow up with them in 2 weeks and colonoscopy in 2 days. He is scheduled for a colonoscopy on Tuesday11/10/2024: Patient is seen and evaluated in the room 408. He has no symptoms today. His vitals are in the normal range. His labs are normal except for Hb is 11, sodium is 146, ALP is 902, potassium is 3.4. He is scheduled for a colonoscopy tomorrow. 11/11/2024: He was evaluated at the bedside this morning. He is AAO x3. he was lying comfortably on the bed without complaint other than back pain. He is hemodynamically stable with BP at 99/53 mm of Hg. Remarkable lab is for potassium 2.6, creatinine 1.4 ALP 902, sodium 144, chloride 107. He was sched uled for colonoscopy today for positive FOBT but it could not happen because of inadequate bowel preparation. We will give 40 mEq of potassium IV with the eye on IRISH and repeat the BMP. He is on dextrose 25 ml/hr. We will get bladder scan to rule out urinary retention leading to IRISH. He may needs urinary catheter and strict I and O if he retains the urine. We will also get speech evaluation tomorrow. Rest of the plan as discussed below 11/12/2024: He was evaluated at the bedside this morning. He is AAO x3 and has a resting tremor bilaterally in upper extremities which as per patient's has been present before admission. His BP dropped overnight to 77/46 due to which colonoscopy prep was called off, a rapid response was called, patient was shifted to ICU and was started on Levophed. This morning, he is vitally stable with BP 124/61, HR 75bpm. BNP from yesterday came back elevated at 503 for which CXR and echo have been ordered. Creatinine trended downwards from 1.5 yesterday to 1.2 today. For further evaluation of underlying cause of hypotension, cortisol AM and cosyntropin ACTH stimulation test have been placed. 11/13/2024: He was evaluated at the bedside this morning. He is vitally stable with blood pressure 154/63, 89 beats per minute. His chest x-ray from yesterday revealed left basilar consolidation with effusion. It was followed by CT chest which showed mild ground-glass opacities in both upper lobes concerning for mild infection. Patient has been switched from Rocephin to cefepime. He is otherwise afebrile with WBC 5.3. Patient was accompanied by his daughter. She expressed concerns regarding not undergoing repeat colonoscopy. It was communicated to nurse. Awaiting consult from GI. 11/14/2024: He was evaluated at the bedside this morning. He is vitally stable with blood pressure 163/76. Overnight, his blood pressure dropped to 105 systolic. Isosorbide mononitrate and lisinopril have been stopped. Patient is currently on metoprolol only. He continues to have bilateral resting tremors with rigidity for which we are starting him on carbidopa levodopa today and will monitor response to it over the course of next few days. As per patient's daughter, he is not being seen by any neurologist. Additionally, he had mild fever with temperature 101.1 this morning. UA with urine culture and blood culture have been taken today. He was started on doxycycline in addition to cefepime considering his QT interval on EKG. Colonoscopy was canceled as per dr welch. REVIEW OF SYSTEMS CONSTITUTIONAL: Swelling of left fingers. Denies fevers, chills, or night sweats. No unintentional weight loss reported. NEUROLOGICAL: Resting tremors in upper extremities. Rigidity. Denies headache, amaurosis fugax,sensory deficit, vertigo/spinning sensation, gait abnormalities. ENT: No hearing loss, otalgia, otorrhea, rhinitis, rhinorrhea, hoarseness, or sore throat. CARDIOVASCULAR: Denies any exertional angina, dyspnea on exertion, orthopnea, paroxysmal nocturnal dyspnea, palpitations, life-threatening arrhythmias, claudication. PULMONARY: Denies any shortness of breath, cough, phlegm/sputum, hemoptysis, pleuritic chest pain. SLEEP: Denies morning headaches, daytime somnolence or napping. Denies difficulty falling asleep, staying asleep, waking from sleep. Denies knowledge of snoring. GASTROINTESTINAL: Denies any type of dysphagia to either liquids or solids. Denies nausea, vomiting, pyrosis, early satiety, abdominal pain, diarrhea, constipation, or changes in stool consistency or caliber. Denies coffee-ground emesis, hematemesis, hematochezia, or melanotic stools. GENITOURINARY: Denies frequency, urgency, nocturia, hematuria or incontinence (Storage/Irritative symptoms.) Low urinary stream, straining to void, urinary intermittency or hesitancy, splitting of the voiding stream, terminal dribbling. ENDOCRINOLOGIC: Denies polyuria, polydipsia, polyphagia or heat/cold intolerances. HEMATOLOGIC: Denies thrombophilia/previous clots, or coagulopathy/bleeding disorders. DERMATOLOGIC: Denies rashes or pruritus. PSYCHIATRIC: Denies any suicidal or homicidal ideation. Denies hallucinations. PHYSICAL EXAM GENERAL APPEARANCE: The patient is awake, alert, and oriented, in no acute cardiopulmonary distress. NEUROLOGICAL: Resting tremors in upper extremities. Rigidity. Cranial nerves II-XII grossly intact. Motor is 5/5 in bilateral upper and lower extremities proximal to distal. No sensory deficits. HEENT: Face is symmetric. Extraocular movement is intact. NECK: Supple. No JVD. No thyromegaly. No submental, submandibular, pre- /postauricular, occipital or supraclavicular lymphadenopathy. CHEST: Normal chest expansion. No Telemetry. LUNGS: Absence of any rales, rhonchi or any wheezing. CARDIOVASCULAR: Regular. S1 and S2 normal. No appreciable rubs, murmurs or gallops. ABDOMEN: Soft, nontender, and nondistended. There is no rebound, voluntary guarding, or rigidity. : Deferred. No Robles. EXTREMITIES: Swelling of fingers on the left Non-edematous and not cyanotic. No clubbing. Good capillary refill. SKIN: No skin breakdown. Vital Signs (last 8hr) Date Time Temp Pulse Resp B/P (MAP) Pulse Ox O2 Delivery O2 Flow Rate FiO2 11/14/24 09:06 99.5 11/14/24 08:00 101.1 76 15 142/70 95 Room Air LABS: Laboratory: Test 11/14/24 05:28 11/13/24 05:36 Range/Units White Blood Count 7.5 # 4.8-10.8 K/uL Red Blood Count 3.17 L 4.50-6.20 MIL/uL Hemoglobin 10.2 L 14.0-18.0 g/dL Hematocrit 32.0 L 42-54 % Mean Corpuscular Volume 100.9 H 79-99 fL Mean Corpuscular Hemoglobin 32.2 27.0-33.0 pg Mean Corpuscular Hemoglobin Concent 31.9 L 32.0-36.0 g/dL Red Cell Distribution Width 14.8 11.0-15.5 % Platelet Count 160 130-400 K/uL Mean Platelet Volume 9.6 7.5-10.5 fL Nucleated Red Blood Cells 0.0 0.0-0.19 % Sodium Level 141 136-145 mmol/L Potassium Level 4.3 3.5-5.1 mmol/L Chloride Level 107 101-111 mmol/L Carbon Dioxide Level 25 21-32 mmol/L Blood Urea Nitrogen 18 7-18 mg/dL Creatinine 0.9 0.5-1.3 mg/dL Glomerular Filtration Rate Calc 86 >90 mL/min Random Glucose 94 70-105 mg/dL Total Calcium 7.3 L 8.5-10.1 mg/dL C-Reactive Protein, Quantitative 79.60 H 0.5-3.0 mg/L Cortisol Baseline 2.3 L 6.2-19.4 ug/dL Current Medications Medications (Trade) Dose Ordered Sig/Brodie Route PRN Reason Start Time Stop Time Status Last Admin Dose Admin Acetaminophen/ Hydrocodone Bitart (NORco 5/325MG) 1 tab Q6H PRN PO MODERATE PAIN (4-6) 11/07/24 12:30 11/12/24 12:29 DC 11/11/24 18:23 1 TAB Atorvastatin Calcium (LIPItor 40MG) 40 mg DAILY PO 11/08/24 09:00 12/08/24 08:59 11/14/24 09:07 40 MG Bisacodyl (DulcoLAX 5MG TAB) 10 mg ONCE@1999 PO 11/09/24 20:00 11/09/24 22:00 DC 11/09/24 20:23 10 MG Bisacodyl (DulcoLAX 5MG TAB) 10 mg ONCE@1999 PO 11/10/24 20:00 11/11/24 06:20 DC 11/10/24 20:58 10 MG Buspirone HCl (BUspar) 10 mg QID PO 11/07/24 13:00 12/07/24 12:59 11/14/24 09:07 10 MG Calcium Gluconate (Calcium Gluc 1gm Vial) 1 gm PROTOCOL STAT IVPB 11/06/24 17:18 11/06/24 17:23 DC Calcium Gluconate (Calcium Gluc 1gm Vial) 1 gm PROTOCOL STAT IVPB 11/06/24 20:10 11/06/24 20:12 DC 11/06/24 20:23 1 GM Carbidopa/Levodopa (Sinemet 25-100 Tab) 1 each TID PO 11/14/24 14:00 12/14/24 13:59 UNV Cefepime HCl (MAXipime 2 gm vial) 2 gm Q12H IVPB 11/13/24 11:30 11/23/24 11:29 11/14/24 10:29 2 GM Ceftriaxone Sodium (ROCEphine 1G INJ) 1 gm Q24H IVPB 11/07/24 09:00 11/13/24 11:24 DC 11/13/24 08:24 1 GM Ceftriaxone Sodium (Rocephin 2gm Inj) 2 gm ONCE STAT IVPB 11/06/24 15:50 11/06/24 15:52 DC 11/06/24 16:06 2 GM Clopidogrel Bisulfate (plaVIX 75MG) 75 mg DAILY PO 11/08/24 09:00 11/11/24 06:19 DC Doxycycline Hyclate 250 ml @ 125 mls/hr Q12H IV 11/14/24 09:00 11/24/24 08:59 11/14/24 09:06 125 MLS/HR Fluoxetine HCl (FLUoxetine HCL 20 MG CAPSULE) 20 mg HS PO 11/07/24 21:00 12/07/24 20:59 11/13/24 21:43 20 MG Fluoxetine HCl (FLUoxetine HCL 20 MG CAPSULE) 40 mg DAILY PO 11/08/24 09:00 12/08/24 08:59 11/14/24 09:06 40 MG Home Med (Home Medication) (Melatonin/ Pyridoxine (Melato... HS PO 11/07/24 21:00 12/07/24 20:59 Hydromorphone HCl (DiLAUDid 0.5MG INJ) 0.2 mg Q2H PRN IVP SEVERE PAIN (7-10) IF NPO 11/12/24 09:30 11/12/24 09:43 DC Hydromorphone HCl (DiLAUDid 0.5MG INJ) 0.5 mg Q2H PRN IVP SEVERE PAIN (7-10) IF NPO 11/12/24 10:00 11/17/24 09:59 11/13/24 21:51 0.5 MG Isosorbide Mononitrate (Ismo) 60 mg AM PO 11/07/24 14:00 11/14/24 11:00 DC 11/14/24 09:07 60 MG Isosorbide Mononitrate (Ismo) 60 mg Q24H PO 11/07/24 14:00 11/07/24 13:54 DC Lactated Ringer's 1,000 ml @ 75 mls/hr [id number] IV 11/06/24 19:30 12/06/24 19:29 11/13/24 10:32 75 MLS/HR Lactulose (Constulose 20gm/ 30ml Udcup) 20 gm BID PRN PO CONSTIPATION 11/06/24 19:30 12/06/24 19:29 11/13/24 18:37 20 GM Lactulose (Constulose 20gm/ 30ml Udcup) 20 gm ONCE@0700 PO 11/10/24 07:00 11/10/24 09:00 DC 11/10/24 07:44 20 GM Lactulose (Constulose 20gm/ 30ml Udcup) 20 gm ONCE@0900 PO 11/10/24 09:00 11/10/24 11:00 DC 11/10/24 09:20 20 GM Lactulose (Constulose 20gm/ 30ml Udcup) 20 gm ONCE@1100 PO 11/10/24 11:00 11/10/24 13:00 DC 11/10/24 11:51 20 GM Lactulose (Constulose 20gm/ 30ml Udcup) 20 gm ONCE@1800 PO 11/09/24 18:00 11/09/24 20:00 DC 11/09/24 18:06 20 GM Lactulose (Constulose 20gm/ 30ml Udcup) 20 gm ONCE@2000 PO 11/09/24 20:00 11/09/24 22:00 DC 11/09/24 20:23 20 GM Lactulose (Constulose 20gm/ 30ml Udcup) 20 gm ONCE@0 PO 11/09/24 22:00 11/09/24 23:59 DC 11/09/24 22:20 20 GM Lisinopril (Prinivil 20mg) 20 mg Q24H PO 11/07/24 14:00 11/14/24 11:00 DC 11/07/24 14:07 20 MG Lorazepam (AtiVAN) 0.5 mg HS PO 11/07/24 21:00 12/07/24 20:59 11/13/24 21:44 0.5 MG Magnesium Sulfate 50 ml @ 0 mls/hr PROTOCOL PRN IV SLIDING SCALE COVERAGE 11/12/24 13:30 12/12/24 13:29 11/12/24 14:20 25 MLS/HR Metoprolol Succinate (TopROL XL) 100 mg Q24H PO 11/07/24 14:00 12/07/24 13:59 11/13/24 14:10 100 MG Mirtazapine (REMeron 15 MG TAB) 30 mg HS PO 11/07/24 21:00 12/07/24 20:59 11/13/24 21:44 30 MG Morphine Sulfate (MS CONtin 15MG) 15 mg Q12H PRN PO SEVERE PAIN (7-10) 11/07/24 13:00 11/12/24 12:59 DC 11/12/24 00:52 15 MG Morphine Sulfate (morPHINE 15MG IR TAB) 15 mg [id number] PRN PO pain 11/07/24 11:00 11/07/24 12:39 DC Morphine Sulfate (morPHINE 2MG SYG) 1 mg Q4H PRN IVP SEVERE PAIN (7-10) 11/09/24 17:30 11/09/24 23:54 DC Morphine Sulfate (morPHINE 4MG SYG) 1 mg Q4H PRN IVP SEVERE PAIN (7-10) 11/09/24 23:59 11/11/24 06:19 DC 11/10/24 23:41 1 MG Norepinephrine 250 ml @ 0 mls/hr PROTOCOL IV 11/11/24 16:30 11/13/24 11:25 DC 11/11/24 23:35 25.9 MLS/HR Ondansetron HCl (zoFRAN 4MG INJ) 4 mg Q6H PRN IV NAUSEA/VOMITING 11/06/24 19:30 12/06/24 19:29 11/10/24 21:09 4 MG Pantoprazole Sodium (PROTonix 40MG INJ) 40 mg DAILY IVP 11/07/24 09:00 12/07/24 08:59 11/14/24 09:07 40 MG Pantoprazole Sodium (PROTonix 40MG TAB) 40 mg ACBKFST PO 01/05/25 07:30 11/11/24 06:20 DC Polyethylene Glycol/ Electrolytes (Golytely/Colyte Soln) 4,000 ml ONCE@1500 PO 11/10/24 15:00 11/10/24 21:00 DC 11/10/24 14:49 4,000 ML Potassium Chloride 100 ml @ 100 mls/hr AD PRN IV POTASSIUM PROTOCOL 11/11/24 06:00 12/11/24 05:59 11/12/24 17:18 100 MLS/HR Potassium Chloride (K-Dur/Klor-Con 20meq) 20 meq AD PRN PO POTASSIUM PROTOCOL 11/11/24 06:00 12/11/24 05:59 11/12/24 04:34 20 MEQ Potassium Chloride (KCl 10% Elixir 20meq/15ml) 20 meq AD PRN PO POTASSIUM PROTOCOL 11/11/24 06:00 12/11/24 05:59 11/12/24 14:18 20 MEQ Prednisone (deltaSONE/ oraSONE 5MG) 5 mg DAILY PO 11/08/24 09:00 12/08/24 08:59 11/14/24 09:07 5 MG Sodium Chloride 100 ml @ 0 mls/hr AD STAT IV 11/06/24 17:22 11/06/24 18:00 DC Tamsulosin HCl (FloMAX) 0.4 mg HS PO 11/07/24 21:00 12/07/24 20:59 11/13/24 21:43 0.4 MG DIAGNOSTICS / RADIOLOGY: PATIENT: JEANINE VILLALTA MR#: [id number] : 1945 SEX: M AGE: 79 LOCATION: ED ORDER 37 STATUS: REG ER REPORT#: [id number] SERVICE 36 REASON: CHEST PAIN/SOB ORDERING PHYSICIAN: BINTA GELLER NP PROCEDURE: CXR1VW - CHEST 1VW EXAM: CR Chest, 1 View. CLINICAL HISTORY: CHEST PAIN/SOB COMPARISON: X-ray chest 03/20/2012 FINDINGS: LUNGS: The lungs show no infiltrate or other acute finding. PLEURAL SPACES: No pleural effusion or pneumothorax. MEDIASTINUM: The cardiomediastinal silhouette is within normal limits. Changes of median sternotomy BONES: No aggressive appearing osseous lesion seen. IMPRESSION: No acute cardiopulmonary pathology is evident. /[place] DICTATED BY: PAULINE ARANA MD DATE: 11/06/241655 ELECTRONICALLY SIGNED BY: PAULINE ARANA MD DATE: 11/06/241655 PATIENT: JEANINE VILLALTA MR#: [id number] : 1945 SEX: M AGE: 79 LOCATION: H ORDER 04 STATUS: ADM IN REPORT#: [id number] SERVICE 100 REASON: right arm swelling ORDERING PHYSICIAN: SHARON LORENZO MD PROCEDURE: VENOUS MARC - US VENOUS DOPPLER BILATERAL US VENOUS DOPPLER BILATERAL REASON: right arm swelling COMPARISON: None Technique: Bilateral venous doppler ultrasound was performed with spectral analysis and color flow imaging technique. FINDINGS: There is a normal appearance of the common femoral, deep femoral, the profunda femoris and popliteal veins. Proximal calf veins appear normal as well. There is normal response to compression and augmentation. There is no evidence of deep venous thrombosis. IMPRESSION: Normal bilateral lower extremity venous Doppler ultrasound. DICTATED BY: GIULIANA WHITNEY MD DATE: 11/08/24 1207 ELECTRONICALLY SIGNED BY: GIULIANA WHITNEY MD DATE: 11/08/24 1210 ASSESSMENT: Acute kidney injury POA Normocytic normochromic anemia POA Resting tremor, suspected parkinson's Suspected pneumonia Positive fecal occult blood Swelling of left fingers Hypertension POA Hypernatremia Hypokalemia Hypotension-improved POA Hyperlipidemia POA Prostate cancer POA Chronic back pain with surgeries x3 POA Aortic valve replacement POA Constipation POA Right eye artificial implant POA PLAN: Acute kidney injury POA His blood work showed that the BUN is 12 and creatinine is 1.4. On 11/12/2019 Today, BUN 18 and creatinine 0.9 Urinary bladder scan on 11/11/24 showed 43 mL. Needs strict I&O. Avoid nephrotoxic drugs. Maintain map above 65 We will get urine electrolytes and creatinine Normocytic normochromic anemia POA His blood work showed that Hb is 11, HCT is 34.5, MCV is 100.3, RDW is 14.8 Iron panel show iron 51, TIBC is 184, % saturation is 27.7. Will repeat his labs tomorrow. Suspected pneumonia - Patient's chest x-ray on 11/12 showed Left basilar consolidation and pleural effusion. - Patient's CT scan on 11/13 showed Mild ground glass opacities in both upper lobes ??? likely mild infection. Chronic obstructive pulmonary disease changes. Subpleural linear scarring with fibroatelectatic bands in both lower lobes. Multiple sclerotic osseous throughout the spine and the ribs with likely represent metastasis. - CRP from 11/13 was 79.60. Patient had a spike of fever 101.1 Overnight (11/14) - Follow up with UA and urine culture as well as blood culture. - Follow up with CRP tomorrow. - Patient is receiving cefepime and doxycycline. Due to borderline QT prolo ngation as per EKG, he was started on doxycycline. Resting tremor, suspected Parkinson's disease - Patient has been started on carbidopa levodopa 25/100. - Follow up with the drug response and monitor patient's improvement over the next several days. - Monitor for any adverse effects including drop in blood pressure. Positive fecal occult blood His fecal occult blood is positive. We consulted gastroenterology and they recommended endoscopy. He underwent a endoscopy today which showed acute gastritis, LA Grade B reflux esophagitis with no bleeding, normal duodenal bulb and 2nd portion of duodenum. Gastroenterology recommended to start clear liquid diet for today, he uses omeprazole 40 mg p.o. daily for 8 weeks, follow up with them in 2 weeks and colonoscopy in 2 days. He was scheduled for a colonoscopy but was canceled due to an episode of hypotension. Awaiting further GI recommendation Swelling of left fingers He complained of swelling in the left fingers. We did a US of bilateral upper limbs and it show no evidence of DVT. Transient hypotension-improved POA Patient developed a hypotensive episode with blood pressure 77/46 on 11/11. He was started on Levophed. His blood pressure is stable today 163/76. His systolic BP dropped to 105 overnight. Lisinopril and isosorbide mononitrate have been stopped. Patient continues on metoprolol. Cortisol a.m. and cosyntropin stimulation ACTH tests have been ordered. Will monitor his blood pressure. Hypokalemia Potassium 4.3 with creatinine 0.9 Patient is maintained on potassium protocol. Hypernatremia(resolved) Today his blood work show that the sodium is 141. Patient was given D5 water at 25ml/hr due to hypernatremia. Will repeat the labs tomorrow. Hyperlipidemia POA Continue Atorvastatin and clopidogrel. Prostate cancer POA Chronic back pain with surgeries x3 POA He complained of pain. His pain is controlled with narco. His ALP is 901 (11/12/2024). Constipation POA Continue lactulose PRN. He is on heart healthy diet. GI prophylaxis with pantoprazole. DVT prophylaxis with SCD. ATTESTATION BY PHYSICIAN I have seen and examined the patient. I reviewed the documentation, medical decision making, and treatment plan as noted by the resident above. I agree with the findings and plan of care. ALISSA RODRIGEZ MD, MUHAMMAD H MD Nov 14, 2024 12:52
[2024-11-14] MEDS: CARBIDOPA-LEVODOPA 25-100 TAB PO SCH (14:20)
--- NOTE | 2024-11-14 15:20 | NUR ---
MBSS COMPLETED. No aspiration. Pt presented with deep non-transient penetration after the swallow with mildly thick liquids via tsp with no cough response. RECOMMEND: Pureed solids, moderately thick liquids via tsp, and pills crushed with pureed. DIAGNOSTIC FINDINGS: Pt presented with moderate oropharyngeal dysphagia characterized by decreased oral motor strength, ROM, and coordination; decreased tongue base retraction; decreased hyo-laryngeal elevation/excursion evidenced by decreased labial closure with anterior spillage; decreased bolus formation and manipulation; slow oral transit time; tongue pumping; bolus holding; bolus loss in oral cavity with residue; residue on valleculae, posterior pharyngeal wall, and pyriform sinuses partially cleared with extra dry swallows; deep non-transient penetration after the swallow with mildly thick liquids via tsp with no cough response. DYNAMICS AX SOLUTION ARCHITECT reviewed results and recommendations with patient and nurse Jerri. DYNAMICS AX SOLUTION ARCHITECT educated patient on risks and consequences of aspiration. Speech therapy not warranted at this time due to patient not follow ing commands. Dysphagia best managed with modified diet and compensatory strategies. All questions answered. Addendum: 11/14/[address] [facility]UNTER Amended: Links added.
--- NOTE | 2024-11-14 15:54 | PN ---
[facility] PROGRESS NOTE Date Patient Seen: Nov 14, 2024 Time of Visit: 1055 Supervising Physician: Dr. Zaldivar Inpatient Consults: BIS PROBLEM LIST: Acute Hypotensin Acute kidney injury POA Normocytic normochromic anemia POA Left ventricular ejection fraction 55-60% with grade diastolic dysfunction per echocardiogram 11/12/2024 COPD Positive fecal occult blood Swelling of left fingers Hypertension POA Hypernatremia Hypokalemia Transient hypotension-improved POA Hyperlipidemia POA Prostate cancer POA Chronic back pain with surgeries x3 POA Aortic valve replacement POA Constipation POA Right eye artificial implant POA INTERVAL HISTORY: 11/13 patient was seen and examined by bedside with family present. Patient is awake alert does answer questions appropriately. At time of visit patient is on room air appears to be tolerating well. Denies any chest pain or shortness of breadth. Denies any nausea vomiting or abdominal pain. CT chest reviewed by supervising physician and recommendations are for a repeat CT scan within 4-6 weeks. Patient will require a follow up with Dr. Dupont trimmer and borer machine operator upon discharge. Continue with current IV antibiotics. Dispo per primary team. As per primary nurse no acute events to be reported 11/14 patient was seen and examined by bedside with family present. At time of visit patient remains on room air tolerating well. Patient has remained hemodynamically stable. At time of visit no specific complaints to be reported. As per primary nurse no acute events to be reported at this time. Patient will need to follow up with Dr. Dupont trimmer and borer machine operator upon discharge for repeat CT scan within 4-6 weeks. Dispo per primary team. We will continue to monitor patient respiratory status closely. Plan summary Continue to monitor respiratory status and maintain adequate oxygenation Patient will require a repeat CT scan without contrast within 4-6 weeks upon discharge Patient will need to follow up with trimmer and borer machine operator Dr. Dupont upon discharge within 3-5 days Maintain adequate oxygenation Keep O2 sats greater or equal to 90% Continue with current IV antibiotics Dispo per primary team REVIEW OF SYSTEMS: 12 point ROS reviewed with patient. Pertinent positives mentioned above. Otherwise negative. PHYSICAL EXAM: GENERAL: alert, weak, awake oriented x 3 HEENT: EOMI, Sclera non icteric, moist mucosa NECK: Supple, no JVD, trachea midline LUNGS: Clear breath sounds bilaterally. No wheezes HEART: Regular rate and rhythm. Normal S1 and S2, without murmurs ABD: Abdomen soft, nontender. Bowel sounds present EXT: No clubbing cyanosis or edema NEURO: Alert and oriented to person, follows commands Vital Signs (last 8hr) Date Time Temp Pulse Resp B/P (MAP) Pulse Ox O2 Delivery O2 Flow Rate FiO2 11/14/24 12:57 100.0 79 16 127/59 94 Room Air 11/14/24 12:00 99.9 76 15 124/58 94 Room Air 11/14/24 09:06 99.5 11/14/24 08:00 101.1 76 15 142/70 95 Room Air LABS: Hematology Labs: Test 11/14/24 05:28 Range/Units White Blood Count 7.5 # 4.8-10.8 K/uL Red Blood Count 3.17 L 4.50-6.20 MIL/uL Hemoglobin 10.2 L 14.0-18.0 g/dL Hematocrit 32.0 L 42-54 % Mean Corpuscular Volume 100.9 H 79-99 fL Mean Corpuscular Hemoglobin 32.2 27.0-33.0 pg Mean Corpuscular Hemoglobin Concent 31.9 L 32.0-36.0 g/dL Red Cell Distribution Width 14.8 11.0-15.5 % Platelet Count 160 130-400 K/uL Mean Platelet Volume 9.6 7.5-10.5 fL Nucleated Red Blood Cells 0.0 0.0-0.19 % Chemistry Labs: Test 11/14/24 05:28 11/13/24 05:36 Range/Units Sodium Level 141 136-145 mmol/L Potassium Level 4.3 3.5-5.1 mmol/L Chloride Level 107 101-111 mmol/L Carbon Dioxide Level 25 21-32 mmol/L Blood Urea Nitrogen 18 7-18 mg/dL Creatinine 0.9 0.5-1.3 mg/dL Glomerular Filtration Rate Calc 86 >90 mL/min Random Glucose 94 70-105 mg/dL Total Calcium 7.3 L 8.5-10.1 mg/dL C-Reactive Protein, Quantitative 79.60 H 0.5-3.0 mg/L Cortisol Baseline 2.3 L 6.2-19.4 ug/dL DIAGNOSTICS / RADIOLOGY RESULTS: na PLAN NEURO: Minimize central acting medications as possible. Maintain fall precautions, adequate lighting during the day PULMONARY: Supplemental 02 as needed. Maintain aspiration precautions at all times CARDIOVASCULAR: Follow hemodynamics. Vital signs per facility protocol GI & NUTRITION: Continue with nutritional support. Continue stool softeners and laxatives as needed. KIDNEYS & ELECTROLYTES: Strict monitoring of intake, output and overall fluid balance. Avoid nephrotoxic medications to the extent possible. Medications to be dosed according to renal function. Monitor electrolytes and replace as needed ENDOCRINE: Maintain blood glucose between 100-180 at all times. Hypoglycemia protocol in place INFECTIOUS DISEASE: Trend temperature, WBC and procalcitonin level Follow cultures, deescalate antibiotics as soon as possible. Panculture if new onset fever ONCOLOGY/HEMATOLOGY/COAGULATION: Monitor for s/s of bleeding Monitor hemoglobin, coagulation studies as needed SKIN: Pressure ulcer prevention per facility protocol Specialty mattress ORTHO/REHAB: Continue PT/OT Prophylaxis: Continue GI and DVT prophylaxis Code Status: Full Resuscitation Disposition: Per primary team Other: Case discussed with supervising physician plan of care agreed upon MIGEL TIWARI Nov 14, 2024 15:54
[2024-11-14 18:54] LABS: APPEARANCE,URINE CLEAR (CLEAR); GLUCOSE, URINE (UA) NEGATIVE (NEGATIVE); LEUKOCYTE ESTERASE ,URINE NEGATIVE Leu/uL (NEGATIVE); NITRATE,URINE NEGATIVE (NEGATIVE); OCCULT BLOOD,URINE NEGATIVE (NEGATIVE)
[2024-11-14 18:57] LABS: ADD UA MICROSCOPIC YES
[2024-11-14 18:58] LABS: OTHER CASTS, URINE 1 /LPF (None Seen); SQUAMOUS EPITHELIAL CELL,UR RARE /HPF (0-2)
[2024-11-15] VITALS (12 sets, daily range): BP systolic 130–180; BP diastolic 51–78; PULSE 68–81; RESP 16–20; TEMP 98–98.8; O2SAT 95–96
[2024-11-15 04:45] LABS: NUCLEATED RED BLOOD CELLS 0.0 % (0.0-0.19); PLATELET COUNT (AUTO) 151.0 K/uL (130-400); RED BLOOD CELL COUNT(AUTO) 3.03 MIL/uL (4.50-6.20); RED CELL DISTRIBUTION WIDTH 14.5 % (11.0-15.5); WHITE BLOOD COUNT (AUTO) 7.8 K/uL (4.8-10.8)
[2024-11-15 05:02] LABS: CREATININE 0.8 mg/dL (0.5-1.3); GLOMERULAR FILTR. RATE CALC 89.0 mL/min (>90); GLUCOSE,RANDOM 110.0 mg/dL (70-105); SODIUM SERUM 143.0 mmol/L (136-145); UREA NITROGEN, BLOOD 18.0 mg/dL (7-18)
--- NOTE | 2024-11-15 10:39 | NUR ---
SW met with daughter who was at bedside after nurse stated that family was asking about information on hospice services. SW educated family on what hospice services were and daughter stated that they don't "feel we are at that stage yet". Daughter states that she was hoping for more assistance at home because sometimes family has a difficult time transferring him. SW encouraged for family to reach out to [facility] or potentially the [facility] to additional assistance. Daughter states that she is the pt's paid provider through [facility].
--- NOTE | 2024-11-15 11:06 | HMCIMG ---
MODIFIED BARIUM SWALLOW W CINE REASON: Concern for aspiration FINDINGS: Fluoroscopic assistance was provided to the speech pathologist while performing examination. For findings and dietary recommendations, refer to speech pathologist's report. FLUORO TIME: Fluoroscopy time 4.4 minutes IMPRESSION: Modified barium swallow as described.
--- NOTE | 2024-11-15 12:56 | NUR ---
SPEECH NOTE: MATTING PRESS TENDER coordinated with nurse Guthrie. As per nurse, patient tolerating pureed solids with medication with no overt s/s of aspiration; however still not receiving moderately thick liquids from cafeteria. Nurse will change diet and have thickener in patient's room. All questions answered. Addendum: 11/15/[address] [facility] Amended: Links added.
--- NOTE | 2024-11-15 14:07 | PN ---
[facility] PROGRESS NOTE Date of Service: Nov 15, 2024 Time of Service: 9:10 SUBJECTIVE: This is an 79 year old male past medical history of hypertension, hyperlipidemia, prostate cancer with past surgical history of back surgery times X3, right eye artificial implant and AVR who was brought by EMS coming from [facility] for complaints of hypotension and generalized body weakness. Nata babcock was at bedside during my evaluation and states that patient has been doing fine and had a follow-up appointment yesterday at the [facility] and today he has another appointment with his primary care doctor at the [facility] and for the past two days patient has been getting up early in the morning not get much rest as per daughter. Today while at the [facility] for routine checkup his systolic blood pressure was in the 80s and patient appeared weak so he was sent to the ED for evaluation.On ER arrival ECG was taken and result showed sinus rhythm HR64 with repolarization abnormalities suggests Ischemia anterolateral .V/S T97.9,HR64,BP115/56,Sat 99%RA. On examination,patient is awake,alert and coherent and appears comfortable .Patient denies fever,nausea,vomiting,dizziness,chest pain,palpitation,cough and shortness of breath.As per daughter ,patient has a good appetite and drinking fl uid as well but because of his medication that he is taking for his cancer ,he has been having hot flushes and sweating a lot she said and has been told that it is an expected side effect of his drug as per Onco.Patient also reports being constipated because of his pain meds for his chronic back pain and last BM was 3 days ago and it was a normal in color.Patient denies Kidney problem before.Labs : WBC 7, neutrophils 86, hemoglobin 12, hematocrit 37, platelet count 257. BUN 28, creatinine 1.3, GFR 56, glucose 128 lactic acid 2.2 troponin 19. Chest x- ray no acute cardiopulmonary pathology is evident. While in the ER patient received 2 L NS bolus bolus, Rocephin 2 g IV, calcium replacement of 1 g IV. The patient is admitted for further management. 11/07/2024: Patient is seen and evaluated in the ER. He complained of pain. His vitals signs are in the normal range. His labs are normal except for Hb is 12.5, HCT is 36 MCV is 101.7, chloride is 112, iron is 51, TIBC 184, %saturation is 27.7 ALP is 1107. We resumed his home meds. Narco is added which relieved the pain. We will continue to monitor his blood pressure and we are also planning to discharge him tomorrow. 11/08/2024: Patient is seen and evaluated in room 408. He has no symptoms today. His vitals signs are in the normal range. His labs are normal except for Hb is 10.4, HCT is 32.4, MCV is 100.3, ALP is 971. His fecal occult blood is positive. So GI was consulted and we are waiting for their recommendations. He also complained swelling in the left fingers. We did a USG doppler of both upper limbs and it showed no evidence of DVT. 11/09/2024: Patient is seen and evaluated in the room 408. He has no symptoms today. His vital signs are in the normal range except for blood pressure is 153/68. His labs are in the normal range except for Hb is 10.2, sodium is 147, chloride is 114, ALP is 869. He underwent a endoscopy today which showed acute gastritis, LA Grade B reflux esophagitis with no bleeding, normal duodenal bulb and 2nd portion of duodenum. Gastroenterology recommended to start clear liquid diet for today, he uses omeprazole 40 mg p.o. daily for 8 weeks, follow up with them in 2 weeks and colonoscopy in 2 days. He is scheduled for a colonoscopy on Tuesday11/10/2024: Patient is seen and evaluated in the room 408. He has no symptoms today. His vitals are in the normal range. His labs are normal except for Hb is 11, sodium is 146, ALP is 902, potassium is 3.4. He is scheduled for a colonoscopy tomorrow. 11/11/2024: He was evaluated at the bedside this morning. He is AAO x3. he was lying comfortably on the bed without complaint other than back pain. He is hemodynamically stable with BP at 99/53 mm of Hg. Remarkable lab is for potassium 2.6, creatinine 1.4 ALP 902, sodium 144, chloride 107. He was sched uled for colonoscopy today for positive FOBT but it could not happen because of inadequate bowel preparation. We will give 40 mEq of potassium IV with the eye on IRISH and repeat the BMP. He is on dextrose 25 ml/hr. We will get bladder scan to rule out urinary retention leading to IRISH. He may needs urinary catheter and strict I and O if he retains the urine. We will also get speech evaluation tomorrow. Rest of the plan as discussed below 11/12/2024: He was evaluated at the bedside this morning. He is AAO x3 and has a resting tremor bilaterally in upper extremities which as per patient's has been present before admission. His BP dropped overnight to 77/46 due to which colonoscopy prep was called off, a rapid response was called, patient was shifted to ICU and was started on Levophed. This morning, he is vitally stable with BP 124/61, HR 75bpm. BNP from yesterday came back elevated at 503 for which CXR and echo have been ordered. Creatinine trended downwards from 1.5 yesterday to 1.2 today. For further evaluation of underlying cause of hypotension, cortisol AM and cosyntropin ACTH stimulation test have been placed. 11/13/2024: He was evaluated at the bedside this morning. He is vitally stable with blood pressure 154/63, 89 beats per minute. His chest x-ray from yesterday revealed left basilar consolidation with effusion. It was followed by CT chest which showed mild ground-glass opacities in both upper lobes concerning for mild infection. Patient has been switched from Rocephin to cefepime. He is otherwise afebrile with WBC 5.3. Patient was accompanied by his daughter. She expressed concerns regarding not undergoing repeat colonoscopy. It was communicated to nurse. Awaiting consult from GI. 11/14/2024: He was evaluated at the bedside this morning. He is vitally stable with blood pressure 163/76. Overnight, his blood pressure dropped to 105 systolic. Isosorbide mononitrate and lisinopril have been stopped. Patient is currently on metoprolol only. He continues to have bilateral resting tremors with rigidity for which we are starting him on carbidopa levodopa today and will monitor response to it over the course of next few days. As per patient's daughter, he is not being seen by any neurologist. Additionally, he had mild fever with temperature 101.1 this morning. UA with urine culture and blood culture have been taken today. He was started on doxycycline in addition to cefepime considering his QT interval on EKG. Colonoscopy was canceled as per dr welch. 11/15/2024: He was evaluated at the bedside this morning. He underwent modified barium swallow study yesterday which found no s/s of aspiration and recommended to use pureed solids, moderately thick liquids via tsp and pills crushed with pureed. Family members sitting besides patient were communicated regarding this. Patient's resting tremors have improved today. CRP has come back elevated by 148.40. We will continue with current antibiotic therapy and discontinue LR fluids. He is otherwise HD with BP 167/72, maintaining O2 sat at room air. WBCs are unremarkable, 7.8. PT eval and Treat consult has been placed to evaluate whether patient can be safely discharged to home or requires nursing facility. REVIEW OF SYSTEMS CONSTITUTIONAL: Swelling of left fingers. Denies fevers, chills, or night sweats. No unintentional weight loss reported. NEUROLOGICAL: Resting tremors in upper extremities. Rigidity. Denies headache, amaurosis fugax,sensory deficit, vertigo/spinning sensation, gait abnormalities. ENT: No hearing loss, otalgia, otorrhea, rhinitis, rhinorrhea, hoarseness, or sore throat. CARDIOVASCULAR: Denies any exertional angina, dyspnea on exertion, orthopnea, paroxysmal nocturnal dyspnea, palpitations, life-threatening arrhythmias, claudication. PULMONARY: Denies any shortness of breath, cough, phlegm/sputum, hemoptysis, pleuritic chest pain. SLEEP: Denies morning headaches, daytime somnolence or napping. Denies difficulty falling asleep, staying asleep, waking from sleep. Denies knowledge of snoring. GASTROINTESTINAL: Denies any type of dysphagia to either liquids or solids. Denies nausea, vomiting, pyrosis, early satiety, abdominal pain, diarrhea, constipation, or changes in stool consistency or caliber. Denies coffee-ground emesis, hematemesis, hematochezia, or melanotic stools. GENITOURINARY: Denies frequency, urgency, nocturia, hematuria or incontinence (Storage/Irritative symptoms.) Low urinary stream, straining to void, urinary intermittency or hesitancy, splitting of the voiding stream, terminal dribbling. ENDOCRINOLOGIC: Denies polyuria, polydipsia, polyphagia or heat/cold intolerances. HEMATOLOGIC: Denies thrombophilia/previous clots, or coagulopathy/bleeding disorders. DERMATOLOGIC: Denies rashes or pruritus. PSYCHIATRIC: Denies any suicidal or homicidal ideation. Denies hallucinations. PHYSICAL EXAM GENERAL APPEARANCE: The patient is awake, alert, and oriented, in no acute cardiopulmonary distress. NEUROLOGICAL: Resting tremors in upper extremities. Rigidity. Cranial nerves II-XII grossly intact. Motor is 5/5 in bilateral upper and lower extremities proximal to distal. No sensory deficits. HEENT: Face is symmetric. Extraocular movement is intact. NECK: Supple. No JVD. No thyromegaly. No submental, submandibular, pre- /postauricular, occipital or supraclavicular lymphadenopathy. CHEST: Normal chest expansion. No Telemetry. LUNGS: Absence of any rales, rhonchi or any wheezing. CARDIOVASCULAR: Regular. S1 and S2 normal. No appreciable rubs, murmurs or gallops. ABDOMEN: Soft, nontender, and nondistended. There is no rebound, voluntary guarding, or rigidity. : Deferred. No Robles. EXTREMITIES: Swelling of fingers on the left Non-edematous and not cyanotic. No clubbing. Good capillary refill. SKIN: No skin breakdown. Vital Signs (last 8hr) Date Time Temp Pulse Resp B/P (MAP) Pulse Ox O2 Delivery O2 Flow Rate FiO2 11/15/24 12:07 158/64 11/15/24 11:44 98.2 70 16 173/74 93 Room Air 11/15/24 09:24 73 143/59 11/15/24 07:50 163/64 11/15/24 07:46 98.6 81 16 165/74 96 Room Air LABS: Laboratory: Test 11/15/24 08:16 11/15/24 04:39 11/14/24 19:44 11/14/24 18:30 Range/Units Lactic Acid Level 0.9 0.8-2.5 mmol/L White Blood Count 7.8 4.8-10.8 K/uL Red Blood Count 3.03 L 4.50-6.20 MIL/uL Hemoglobin 9.8 L 14.0-18.0 g/dL Hematocrit 29.8 L 42-54 % Mean Corpuscular Volume 98.3 79-99 fL Mean Corpuscular Hemoglobin 32.3 27.0-33.0 pg Mean Corpuscular Hemoglobin Concent 32.9 32.0-36.0 g/dL Red Cell Distribution Width 14.5 11.0-15.5 % Platelet Count 151 130-400 K/uL Mean Platelet Volume 9.3 7.5-10.5 fL Nucleated Red Blood Cells 0.0 0.0-0.19 % Sodium Level 143 136-145 mmol/L Potassium Level 3.6 3.5-5.1 mmol/L Chloride Level 109 101-111 mmol/L Carbon Dioxide Level 23 21-32 mmol/L Blood Urea Nitrogen 18 7-18 mg/dL Creatinine 0.8 0.5-1.3 mg/dL Glomerular Filtration Rate Calc 89 >90 mL/min Random Glucose 110 H 70-105 mg/dL Total Calcium 7.2 L 8.5-10.1 mg/dL C-Reactive Protein, Quantitative 148.40 H 0.5-3.0 mg/L Whole Blood Glucose 131 H 70-110 MG/DL Urine Color LIGHT-YELLOW YELLOW Urine Appearance CLEAR CLEAR Urine pH 5.5 5.0-8.0 Urine Specific Bailey 1.014 1.001-1.031 Urine Protein 10 H NEGATIVE mg/dL Urine Glucose (UA) NEGATIVE NEGATIVE mg/dL Urine Ketones NEGATIVE NEGATIVE mg/dL Urine Occult Blood NEGATIVE NEGATIVE Urine Nitrate NEGATIVE NEGATIVE Urine Bilirubin NEGATIVE NEGATIVE mg/dL Urine Urobilinogen 0.2 0.2-1.0 mg/dL Urine Leukocyte Esterase NEGATIVE NEGATIVE [place]/uL Urine RBC 2-5 H 0-1 /HPF Urine WBC 2-5 H 0-1 /HPF Urine Squamous Epithelial Cells RARE 0-2 /HPF Urine Bacteria RARE None Seen /HPF Urine Other Casts 1 None Seen /LPF Current Medications Medications (Trade) Dose Ordered Sig/Brodie Route PRN Reason Start Time Stop Time Status Last Admin Dose Admin Acetaminophen (TYLenol 500MG TAB) 500 mg Q4H PRN PO TEMPERATURE GREATER THAN 101.5 11/14/24 13:30 12/14/24 13:29 Acetaminophen/ Hydrocodone Bitart (NORco 5/325MG) 1 tab Q6H PRN PO MODERATE PAIN (4-6) 11/07/24 12:30 11/12/24 12:29 DC 11/11/24 18:23 1 TAB Atorvastatin Calcium (LIPItor 40MG) 40 mg DAILY PO 11/08/24 09:00 12/08/24 08:59 11/15/24 08:16 40 MG Bisacodyl (DulcoLAX 5MG TAB) 10 mg ONCE@1999 PO 11/09/24 20:00 11/09/24 22:00 DC 11/09/24 20:23 10 MG Bisacodyl (DulcoLAX 5MG TAB) 10 mg ONCE@1999 PO 11/10/24 20:00 11/11/24 06:20 DC 11/10/24 20:58 10 MG Buspirone HCl (BUspar) 10 mg QID PO 11/07/24 13:00 12/07/24 12:59 11/15/24 13:39 10 MG Calcium Gluconate (Calcium Gluc 1gm Vial) 1 gm PROTOCOL STAT IVPB 11/06/24 17:18 11/06/24 17:23 DC Calcium Gluconate (Calcium Gluc 1gm Vial) 1 gm PROTOCOL STAT IVPB 11/06/24 20:10 11/06/24 20:12 DC 11/06/24 20:23 1 GM Carbidopa/Levodopa (Sinemet 25-100 Tab) 1 each TID PO 11/14/24 14:00 12/14/24 13:59 11/15/24 13:39 1 EACH Cefepime HCl (MAXipime 2 gm vial) 2 gm Q12H IVPB 11/13/24 11:30 11/23/24 11:29 11/15/24 11:11 2 GM Ceftriaxone Sodium (ROCEphine 1G INJ) 1 gm Q24H IVPB 11/07/24 09:00 11/13/24 11:24 DC 11/13/24 08:24 1 GM Ceftriaxone Sodium (Rocephin 2gm Inj) 2 gm ONCE STAT IVPB 11/06/24 15:50 11/06/24 15:52 DC 11/06/24 16:06 2 GM Clopidogrel Bisulfate (plaVIX 75MG) 75 mg DAILY PO 11/08/24 09:00 11/11/24 06:19 DC Doxycycline Hyclate 250 ml @ 125 mls/hr Q12H IV 11/14/24 09:00 11/24/24 08:59 11/15/24 08:16 125 MLS/HR Fluoxetine HCl (FLUoxetine HCL 20 MG CAPSULE) 20 mg HS PO 11/07/24 21:00 12/07/24 20:59 11/14/24 21:10 20 MG Fluoxetine HCl (FLUoxetine HCL 20 MG CAPSULE) 40 mg DAILY PO 11/08/24 09:00 12/08/24 08:59 11/15/24 08:16 40 MG Home Med (Home Medication) (Melatonin/ Pyridoxine (Melato... HS PO 11/07/24 21:00 12/07/24 20:59 Hydromorphone HCl (DiLAUDid 0.5MG INJ) 0.2 mg Q2H PRN IVP SEVERE PAIN (7-10) IF NPO 11/12/24 09:30 11/12/24 09:43 DC Hydromorphone HCl (DiLAUDid 0.5MG INJ) 0.5 mg Q2H PRN IVP SEVERE PAIN (7-10) IF NPO 11/12/24 10:00 11/17/24 09:59 11/15/24 12:42 0.5 MG Isosorbide Mononitrate (Ismo) 60 mg AM PO 11/07/24 14:00 11/14/24 11:00 DC 11/14/24 09:07 60 MG Isosorbide Mononitrate (Ismo) 60 mg Q24H PO 11/07/24 14:00 11/07/24 13:54 DC Lactated Ringer's 1,000 ml @ 75 mls/hr [id number] IV 11/06/24 19:30 11/15/24 10:56 DC 11/14/24 12:57 75 MLS/HR Lactulose (Constulose 20gm/ 30ml Udcup) 20 gm BID PRN PO CONSTIPATION 11/06/24 19:30 12/06/24 19:29 11/13/24 18:37 20 GM Lactulose (Constulose 20gm/ 30ml Udcup) 20 gm ONCE@0700 PO 11/10/24 07:00 11/10/24 09:00 DC 11/10/24 07:44 20 GM Lactulose (Constulose 20gm/ 30ml Udcup) 20 gm ONCE@0900 PO 11/10/24 09:00 11/10/24 11:00 DC 11/10/24 09:20 20 GM Lactulose (Constulose 20gm/ 30ml Udcup) 20 gm ONCE@1100 PO 11/10/24 11:00 11/10/24 13:00 DC 11/10/24 11:51 20 GM Lactulose (Constulose 20gm/ 30ml Udcup) 20 gm ONCE@1800 PO 11/09/24 18:00 11/09/24 20:00 DC 11/09/24 18:06 20 GM Lactulose (Constulose 20gm/ 30ml Udcup) 20 gm ONCE@2000 PO 11/09/24 20:00 11/09/24 22:00 DC 11/09/24 20:23 20 GM Lactulose (Constulose 20gm/ 30ml Udcup) 20 gm ONCE@2200 PO 11/09/24 22:00 11/09/24 23:59 DC 11/09/24 22:20 20 GM Lisinopril (Prinivil 20mg) 20 mg Q24H PO 11/07/24 14:00 11/14/24 11:00 DC 11/07/24 14:07 20 MG Lorazepam (AtiVAN) 0.5 mg HS PO 11/07/24 21:00 12/07/24 20:59 11/14/24 21:10 0.5 MG Magnesium Sulfate 50 ml @ 0 mls/hr PROTOCOL PRN IV SLIDING SCALE COVERAGE 11/12/24 13:30 12/12/24 13:29 11/12/24 14:20 25 MLS/HR Metoprolol Succinate (TopROL XL) 100 mg Q24H PO 11/07/24 14:00 12/07/24 13:59 11/15/24 13:39 100 MG Mirtazapine (REMeron 15 MG TAB) 30 mg HS PO 11/07/24 21:00 12/07/24 20:59 11/14/24 21:10 30 MG Morphine Sulfate (MS CONtin 15MG) 15 mg Q12H PRN PO SEVERE PAIN (7-10) 11/07/24 13:00 11/12/24 12:59 DC 11/12/24 00:52 15 MG Morphine Sulfate (morPHINE 15MG IR TAB) 15 mg [id number] PRN PO pain 11/07/24 11:00 11/07/24 12:39 DC Morphine Sulfate (morPHINE 2MG SYG) 1 mg Q4H PRN IVP SEVERE PAIN (7-10) 11/09/24 17:30 11/09/24 23:54 DC Morphine Sulfate (morPHINE 4MG SYG) 1 mg Q4H PRN IVP SEVERE PAIN (7-10) 11/09/24 23:59 11/11/24 06:19 DC 11/10/24 23:41 1 MG Norepinephrine 250 ml @ 0 mls/hr PROTOCOL IV 11/11/24 16:30 11/13/24 11:25 DC 11/11/24 23:35 25.9 MLS/HR Ondansetron HCl (zoFRAN 4MG INJ) 4 mg Q6H PRN IV NAUSEA/VOMITING 11/06/24 19:30 12/06/24 19:29 11/10/24 21:09 4 MG Pantoprazole Sodium (PROTonix 40MG INJ) 40 mg DAILY IVP 11/07/24 09:00 12/07/24 08:59 11/15/24 08:16 40 MG Pantoprazole Sodium (PROTonix 40MG TAB) 40 mg ACBKFST PO 01/05/25 07:30 11/11/24 06:20 DC Polyethylene Glycol/ Electrolytes (Golytely/Colyte Soln) 4,000 ml ONCE@1500 PO 11/10/24 15:00 11/10/24 21:00 DC 11/10/24 14:49 4,000 ML Potassium Chloride 100 ml @ 100 mls/hr AD PRN IV POTASSIUM PROTOCOL 11/11/24 06:00 12/11/24 05:59 11/12/24 17:18 100 MLS/HR Potassium Chloride (K-Dur/Klor-Con 20meq) 20 meq AD PRN PO POTASSIUM PROTOCOL 11/11/24 06:00 12/11/24 05:59 11/12/24 04:34 20 MEQ Potassium Chloride (KCl 10% Elixir 20meq/15ml) 20 meq AD PRN PO POTASSIUM PROTOCOL 11/11/24 06:00 12/11/24 05:59 11/15/24 08:16 20 MEQ Prednisone (deltaSONE/ oraSONE 5MG) 5 mg DAILY PO 11/08/24 09:00 11/15/24 10:56 DC 11/15/24 08:16 5 MG Prednisone (deltaSONE/ oraSONE 5MG) 7.5 mg DAILY PO 11/16/24 09:00 12/16/24 08:59 Sodium Chloride 100 ml @ 0 mls/hr AD STAT IV 11/06/24 17:22 11/06/24 18:00 DC Tamsulosin HCl (FloMAX) 0.4 mg HS PO 11/07/24 21:00 12/07/24 20:59 11/14/24 21:10 0.4 MG DIAGNOSTICS / RADIOLOGY: PATIENT: JEANINE VILLALTA MR#: [id number] : 1945 SEX: M AGE: 79 LOCATION: [facility] ORDER 37 STATUS: REG ER REPORT#: [id number] SERVICE 36 REASON: CHEST PAIN/SOB ORDERING PHYSICIAN: BINTA GELLER NP PROCEDURE: CXR1VW - CHEST 1VW EXAM: CR Chest, 1 View. CLINICAL HISTORY: CHEST PAIN/SOB COMPARISON: X-ray chest 03/20/2012 FINDINGS: LUNGS: The lungs show no infiltrate or other acute finding. PLEURAL SPACES: No pleural effusion or pneumothorax. MEDIASTINUM: The cardiomediastinal silhouette is within normal limits. Changes of median sternotomy BONES: No aggressive appearing osseous lesion seen. IMPRESSION: No acute cardiopulmonary pathology is evident. /[place] DICTATED BY: PAULINE ARANA MD DATE: 11/06/241655 ELECTRONICALLY SIGNED BY: PAULINE ARANA MD DATE: 11/06/241655 PATIENT: JEANINE VILLALTA MR#: [id number] : 1945 SEX: M AGE: 79 LOCATION: H ORDER 100 STATUS: ADM IN REPORT#: [id number] SERVICE 100 REASON: right arm swelling ORDERING PHYSICIAN: SHARON LORENZO MD PROCEDURE: VENOUS MARC - US VENOUS DOPPLER BILATERAL US VENOUS DOPPLER BILATERAL REASON: right arm swelling COMPARISON: None Technique: Bilateral venous doppler ultrasound was performed with spectral analysis and color flow imaging technique. FINDINGS: There is a normal appearance of the common femoral, deep femoral, the profunda femoris and popliteal veins. Proximal calf veins appear normal as well. There is normal response to compression and augmentation. There is no evidence of deep venous thrombosis. IMPRESSION: Normal bilateral lower extremity venous Doppler ultrasound. DICTATED BY: GIULIANA WHITNEY MD DATE: 11/08/24 1207 ELECTRONICALLY SIGNED BY: GIULIANA WHITNEY MD DATE: 11/08/24 1210 PATIENT: JEANINE VILLALTA MR#: [id number] : 1945 SEX: M AGE: 79 LOCATION: [facility] ORDER 1323 STATUS: ADM IN REPORT#: [id number] SERVICE 132 REASON: atelectasis L:LL ORDERING PHYSICIAN: MACK CALHOUN MD PROCEDURE: CHEST WO - CT CHEST W/O CONTRAST EXAMINATION: CT EXAMINATION OF THE CHEST WITHOUT CONTRAST CLINICAL HISTORY: Atelectasis left lower lobe. TECHNIQUE: Thin collimated axial CT images of the chest were obtained with sagittal and coronal reformatted images also submitted for interpretation. The total dose length product has been recorded in the electronic medical record. COMPARISON: None. FINDINGS: Central airways are patent. Chronic obstructive pulmonary disease changes. Subpleural linear scarring with fibroatelectatic bands in both lower lobes. Mild ground glass opacities in both upper lobes (series 3, image 20). There is no suspicious pulmonary nodule. There is no pleural or pericardial effusion. 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 There are atheromatous wall calcification of the aorta and coronary arteries. The ascending aorta measures 3.2 x 3.1 cm. There are subcentimetre precarinal and prevascular lymph nodes. There is no axillary or supraclavicular lymphadenopathy. Hilar jasmine stations are inadequately assessed without intravenous contrast. There is no focal thyroid abnormality. Limited noncontrast views of the upper abdomen demonstrate no acute findings. There is multilevel moderate degenerative spondylosis. Mild bibasilar dependent atelectasis. Multiple sclerotic osseous throughout the spine and the ribs with likely represent metastasis. IMPRESSION: Mild ground glass opacities in both upper lobes ??? likely mild infection. Chronic obstructive pulmonary disease changes. Subpleural linear scarring with fibroatelectatic bands in both lower lobes. Multiple sclerotic osseous throughout the spine and the ribs with likely represent metastasis. /[place] DICTATED BY: RANDI CHUNG MD DATE: 11/13/24 130 ELECTRONICALLY SIGNED BY: RANDI CHUNG MD DATE: 11/13/24 1305 ASSESSMENT: Acute kidney injury POA, resolved Debility Adrenal insufficiency Normocytic normochromic anemia POA Resting tremor, suspected parkinson's Suspected pneumonia Positive fecal occult blood Swelling of left fingers Hypertension POA Hypernatremia Hypokalemia Hypotension-improved POA Hyperlipidemia POA Prostate cancer POA Chronic back pain with surgeries x3 POA Aortic valve replacement POA Constipation POA Right eye artificial implant POA PLAN: Suspected pneumonia - Patient's chest x-ray on 11/12 showed Left basilar consolidation and pleural effusion. - Patient's CT scan on 11/13 showed Mild ground glass opacities in both upper l obes ??? likely mild infection. Chronic obstructive pulmonary disease changes. Subpleural linear scarring with fibroatelectatic bands in both lower lobes. Multiple sclerotic osseous throughout the spine and the ribs with likely represent metastasis. - CRP from 11/13 was 79.60. Patient had a spike of fever 101.1 Overnight (11/14) - CRP on 11/15 showed 148.40 - Follow up with UA and urine culture as well as blood culture. - Patient is receiving cefepime and doxycycline. Due to borderline QT prolongation as per EKG, he was started on doxycycline. - Lactated Ringer has been discontinued today. Acute kidney injury POA, resolved His blood work showed that the BUN is 12 and creatinine is 1.4. On 11/12/2019 Today, BUN 18 and creatinine 0.8 Urinary bladder scan on 11/11/24 showed 43 mL. Needs strict I&O. Avoid nephrotoxic drugs. Maintain map above 65 Normocytic normochromic anemia POA His blood work showed that Hb is 11, HCT is 34.5, MCV is 100.3, RDW is 14.8 Iron panel show iron 51, TIBC is 184, % saturation is 27.7. Will repeat his labs tomorrow. Resting tremor, suspected Parkinson's disease - Patient has been started on carbidopa levodopa . 11/15/24 - Follow up with the drug response and monitor patient's improvement over the next several days. - Monitor for any adverse effects including drop in blood pressure. Positive fecal occult blood His fecal occult blood is positive. We consulted gastroenterology and they recommended endoscopy. He underwent a endoscopy today which showed acute gastritis, LA Grade B reflux esophagitis with no bleeding, normal duodenal bulb and 2nd portion of duodenum. Gastroenterology recommended to start clear liquid diet for today, he uses omeprazole 40 mg p.o. daily for 8 weeks, follow up with them in 2 weeks and colonoscopy in 2 days. He was scheduled for a colonoscopy but was canceled due to an episode of hypotension. Awaiting further GI recommendation Swelling of left fingers He complained of swelling in the left fingers. We did a US of bilateral upper limbs and it show no evidence of DVT. Transient hypotension-improved POA Patient developed a hypotensive episode with blood pressure 77/46 on 11/11. He was started on Levophed. His blood pressure is stable today 167/72. On 11/15, His systolic BP dropped to 105 overnight. Lisinopril and isosorbide mononitrate have been stopped. Patient continues on metoprolol. Cortisol a.m. and cosyntropin stimulation ACTH tests were ordered. Cortisol a.m. was reduced, 2.3. Prednisone has been increased to 7.5 mg. Will monitor his blood pressure. Adrenal insufficiency Patient had an episode of hypotension which improved with support. He is on prednisone for metastatic prostate cancer. Cortisol a.m. and cosyntropin stimulation ACTH tests were ordered. Cortisol a.m. was reduced, 2.3. Prednisone has been increased to 7.5 mg. (11/15/2024) Debility - Patient is fragile and bed-bound. - Modified barium swallow study was performed which revealed no aspiration s igns. As per recommendations, patient to receive Pureed solids, moderately thick liquids via tsp, and pills crushed with pureed. - PT eval and consult was placed for consideration of SNF versus home discharge. Hypokalemia Potassium 3.6 with creatinine 0.8 Patient is maintained on potassium protocol. Hypernatremia(resolved) Today his blood work show that the sodium is 143. Patient was given D5 water at 25ml/hr due to hypernatremia. Will repeat the labs tomorrow. Hyperlipidemia POA Continue Atorvastatin and clopidogrel. Prostate cancer POA Chronic back pain with surgeries x3 POA He complained of pain. His pain is controlled with narco. His ALP is 901 (11/12/2024). Constipation POA Continue lactulose PRN. He is on heart healthy diet. GI prophylaxis with pantoprazole. DVT prophylaxis with SCD. ATTESTATION BY PHYSICIAN I have seen and examined the patient. I reviewed the documentation, medical decision making, and treatment plan as noted by the resident provider above. I agree with the findings and plan of care. ALISSA RODRIGEZ MD, MUHAMMAD H MD Nov 15, 2024 14:07
--- NOTE | 2024-11-15 14:45 | NUR ---
Discharge Planning: Prompt entered for SNF from Dr. Daigle for PT/SNF. Granddaughter Adeola at beside. Refused SNF. States plan is for home. Dr. Daigle made aware.
--- NOTE | 2024-11-15 15:13 | PN ---
[facility] PROGRESS NOTE Date Patient Seen: Nov 15, 2024 Time of Visit: 1052 Supervising Physician: Dr. Zaldivar Inpatient Consults: BIS PROBLEM LIST: Acute Hypotensin Acute kidney injury POA Normocytic normochromic anemia POA Left ventricular ejection fraction 55-60% with grade diastolic dysfunction per echocardiogram 11/12/2024 COPD Positive fecal occult blood Swelling of left fingers Hypertension POA Hypernatremia Hypokalemia Transient hypotension-improved POA Hyperlipidemia POA Prostate cancer POA Chronic back pain with surgeries x3 POA Aortic valve replacement POA Constipation POA Right eye artificial implant POA INTERVAL HISTORY: 11/13 patient was seen and examined by bedside with family present. Patient is awake alert does answer questions appropriately. At time of visit patient is on room air appears to be tolerating well. Denies any chest pain or shortness of breadth. Denies any nausea vomiting or abdominal pain. CT chest reviewed by supervising physician and recommendations are for a repeat CT scan within 4-6 weeks. Patient will require a follow up with Dr. Dupont coffee shop aide upon discharge. Continue with current IV antibiotics. Dispo per primary team. As per primary nurse no acute events to be reported 11/14 patient was seen and examined by bedside with family present. At time of visit patient remains on room air tolerating well. Patient has remained hemodynamically stable. At time of visit no specific complaints to be reported. As per primary nurse no acute events to be reported at this time. Patient will need to follow up with Dr. Dupont coffee shop aide upon discharge for repeat CT scan within 4-6 weeks. Dispo per primary team. We will continue to monitor patient respiratory status closely. 11/15 patient was seen and examined at bedside with family present. At time of visit patient has no specific complaints. Patient remains hemodynamically stable. Patient's family is deciding whether to be discharged versus SNF. This will be left up to primary team. From a respiratory status patient has remained stable. As per primary nurse no acute events to be reported. We will continue to monitor patient's respiratory status closely. Dispo per primary team Plan summary Continue to monitor respiratory status and maintain adequate oxygenation Patient will require a repeat CT scan without contrast within 4-6 weeks upon discharge Patient will need to follow up with coffee shop aide Dr. Dupont upon discharge within 3-5 days Maintain adequate oxygenation Keep O2 sats greater or equal to 90% Continue with current IV antibiotics Dispo per primary team REVIEW OF SYSTEMS: 12 point ROS reviewed with patient. Pertinent positives mentioned above. Otherwise negative. PHYSICAL EXAM: GENERAL: alert, weak, awake oriented x 3 HEENT: EOMI, Sclera non icteric, moist mucosa NECK: Supple, no JVD, trachea midline LUNGS: Clear breath sounds bilaterally. No wheezes HEART: Regular rate and rhythm. Normal S1 and S2, without murmurs ABD: Abdomen soft, nontender. Bowel sounds present EXT: No clubbing cyanosis or edema NEURO: Alert and oriented to person, follows commands Vital Signs (last 8hr) Date Time Temp Pulse Resp B/P (MAP) Pulse Ox O2 Delivery O2 Flow Rate FiO2 11/15/24 12:07 158/64 11/15/24 11:44 98.2 70 16 173/74 93 Room Air 11/15/24 09:24 73 143/59 11/15/24 07:50 163/64 11/15/24 07:46 98.6 81 16 165/74 96 Room Air LABS: Hematology Labs: Test 11/15/24 04:39 Range/Units White Blood Count 7.8 4.8-10.8 K/uL Red Blood Count 3.03 L 4.50-6.20 MIL/uL Hemoglobin 9.8 L 14.0-18.0 g/dL Hematocrit 29.8 L 42-54 % Mean Corpuscular Volume 98.3 79-99 fL Mean Corpuscular Hemoglobin 32.3 27.0-33.0 pg Mean Corpuscular Hemoglobin Concent 32.9 32.0-36.0 g/dL Red Cell Distribution Width 14.5 11.0-15.5 % Platelet Count 151 130-400 K/uL Mean Platelet Volume 9.3 7.5-10.5 fL Nucleated Red Blood Cells 0.0 0.0-0.19 % Chemistry Labs: Test 11/15/24 08:16 11/15/24 04:39 11/14/24 19:44 Range/Units Lactic Acid Level 0.9 0.8-2.5 mmol/L Sodium Level 143 136-145 mmol/L Potassium Level 3.6 3.5-5.1 mmol/L Chloride Level 109 101-111 mmol/L Carbon Dioxide Level 23 21-32 mmol/L Blood Urea Nitrogen 18 7-18 mg/dL Creatinine 0.8 0.5-1.3 mg/dL Glomerular Filtration Rate Calc 89 >90 mL/min Random Glucose 110 H 70-105 mg/dL Total Calcium 7.2 L 8.5-10.1 mg/dL C-Reactive Protein, Quantitative 148.40 H 0.5-3.0 mg/L Whole Blood Glucose 131 H 70-110 MG/DL DIAGNOSTICS / RADIOLOGY RESULTS: na PLAN NEURO: Minimize central acting medications as possible. Maintain fall precautions, adequate lighting during the day PULMONARY: Supplemental 02 as needed. Maintain aspiration precautions at all times CARDIOVASCULAR: Follow hemodynamics. Vital signs per facility protocol GI & NUTRITION: Continue with nutritional support. Continue stool softeners and laxatives as needed. KIDNEYS & ELECTROLYTES: Strict monitoring of intake, output and overall fluid balance. Avoid nephrotoxic medications to the extent possible. Medications to be dosed according to renal function. Monitor electrolytes and replace as needed ENDOCRINE: Maintain blood glucose between 100-180 at all times. Hypoglycemia protocol in place INFECTIOUS DISEASE: Trend temperature, WBC and procalcitonin level Follow cultures, deescalate antibiotics as soon as possible. Panculture if new onset fever ONCOLOGY/HEMATOLOGY/COAGULATION: Monitor for s/s of bleeding Monitor hemoglobin, coagulation studies as needed SKIN: Pressure ulcer prevention per facility protocol Specialty mattress ORTHO/REHAB: Continue PT/OT Prophylaxis: Continue GI and DVT prophylaxis Code Status: Full Resuscitation Disposition: Per primary team Other: Case discussed with supervising physician plan of care agreed upon MIGEL TIWARI Nov 15, 2024 15:13
--- NOTE | 2024-11-15 20:25 | NUR ---
MEDS SHIFT ASSESSMENT DONE, PLEASE REFER TO CHART. PT CLAIMS OF HIP PAINS. PCP REPORTED ELEVATED BP ON RE-CHECK= 180/78. DUE PO MEDS CRUSHED AND GIVEN WITH APPLE SAUCE AND APPLE JUICE. IV ANTIBIOTICS INFUSED. KEPT RESTED AND COMFORTABLE IN BED WITH HOB ELEVATED. WILL RE-ASSESS PT.
--- NOTE | 2024-11-15 21:23 | NUR ---
TELEVISION PRODUCTION ASSISTANT RE-CHECKED WE=[id number], HR=76. PT COMPLAINTS OF HIP PAINS. PAGED TELEVISION PRODUCTION ASSISTANT MANAGER ASSET VIA ANSWERING SERVICE. SPOKE WITH JEROME SCRUGGS NP, REFERRED PT'S PAINS AND PERSISTENTLY ELEVATED BP ON RE-CHECK. NEW MED ORDERS RECEIVED, PLEASE REFER TO CPOE. WILL MEDICATE PT.
[2024-11-16] VITALS (7 sets, daily range): BP systolic 142–162; BP diastolic 57–74; PULSE 64–75; RESP 18–19; TEMP 98.2–99.6; O2SAT 97
--- NOTE | 2024-11-16 03:47 | NUR ---
PAIN PCP IN TO MONITOR V/S, STABLE. PT CLAIMS OF PAINS TO LEFT LEG. PCP CHANGED PT'S DIAPER AND PAD THEN RE-POSITIONED COMFORTABLY IN BED WITH HOB ELEVATED. MEDICATED WITH MORPHINE IV. WILL RE-ASSESS PT. FAMILY AT BEDSIDE.
[2024-11-16 05:19] LABS: NUCLEATED RED BLOOD CELLS 0.0 % (0.0-0.19); PLATELET COUNT (AUTO) 154.0 K/uL (130-400); RED BLOOD CELL COUNT(AUTO) 2.95 MIL/uL (4.50-6.20); RED CELL DISTRIBUTION WIDTH 14.6 % (11.0-15.5); WHITE BLOOD COUNT (AUTO) 6.1 K/uL (4.8-10.8)
[2024-11-16 05:46] LABS: CREATININE 0.7 mg/dL (0.5-1.3); GLOMERULAR FILTR. RATE CALC 93.0 mL/min (>90); GLUCOSE,RANDOM 87.0 mg/dL (70-105); SODIUM SERUM 143.0 mmol/L (136-145); UREA NITROGEN, BLOOD 15.0 mg/dL (7-18)
--- NOTE | 2024-11-16 05:53 | NUR ---
REPLACE PT IS FAIRLY ASLEEP AT THIS TIME WITH RESPIRATIONS EVEN AND UNLABORED. NO NOTED DISTRESS. MG LEVEL=1.7, REPLACEMENT IV STARTED PER PROTOCOL. KEPT UNDISTURBED FOR NOW. FOR MORE CARE.
--- NOTE | 2024-11-16 14:35 | PN ---
[facility] PROGRESS NOTE Date Patient Seen: Nov 16, 2024 Time of Visit: 1025 Supervising Physician: Dr. RAE Inpatient Consults: BIS PROBLEM LIST: Acute Hypotensin Acute kidney injury POA Normocytic normochromic anemia POA Left ventricular ejection fraction 55-60% with grade diastolic dysfunction per echocardiogram 11/12/2024 COPD Positive fecal occult blood Swelling of left fingers Hypertension POA Hypernatremia Hypokalemia Transient hypotension-improved POA Hyperlipidemia POA Prostate cancer POA Chronic back pain with surgeries x3 POA Aortic valve replacement POA Constipation POA Right eye artificial implant POA INTERVAL HISTORY: 11/13 patient was seen and examined by bedside with family present. Patient is awake alert does answer questions appropriately. At time of visit patient is on room air appears to be tolerating well. Denies any chest pain or shortness of breadth. Denies any nausea vomiting or abdominal pain. CT chest reviewed by supervising physician and recommendations are for a repeat CT scan within 4-6 weeks. Patient will require a follow up with Dr. Dupont occasional babysitter upon discharge. Continue with current IV antibiotics. Dispo per primary team. As per primary nurse no acute events to be reported 11/14 patient was seen and examined by bedside with family present. At time of visit patient remains on room air tolerating well. Patient has remained hemodynamically stable. At time of visit no specific complaints to be reported. As per primary nurse no acute events to be reported at this time. Patient will need to follow up with Dr. Dupont occasional babysitter upon discharge for repeat CT scan within 4-6 weeks. Dispo per primary team. We will continue to monitor patient respiratory status closely. 11/15 patient was seen and examined at bedside with family present. At time of visit patient has no specific complaints. Patient remains hemodynamically stable. Patient's family is deciding whether to be discharged versus SNF. This will be left up to primary team. From a respiratory status patient has remained stable. As per primary nurse no acute events to be reported. We will continue to monitor patient's respiratory status closely. Dispo per primary team 11/16 patient was seen and examined at bedside with family present. Patient remains on room air is tolerating well. At time of visit patient has no specific complaints. As per family they are wishing to be discharged home when medically cleared. Did advise patient and family member from a pulmonary standpoint patient is cleared for discharge. We will just need to follow up with 4-6 weeks to have CTA of the chest repeated. And to follow up with Dr. Dupont occasional babysitter within one week. Dispo per primary team Plan summary Continue to monitor respiratory status and maintain adequate oxygenation Patient will require a repeat CT scan without contrast within 4-6 weeks upon discharge Patient will need to follow up with occasional babysitter Dr. Dupont upon discharge within 3-5 days Maintain adequate oxygenation Keep O2 sats greater or equal to 90% Continue with current IV antibiotics Dispo per primary team REVIEW OF SYSTEMS: 12 point ROS reviewed with patient. Pertinent positives mentioned above. Otherwise negative. PHYSICAL EXAM: GENERAL: alert, weak, awake oriented x 3 HEENT: EOMI, Sclera non icteric, moist mucosa NECK: Supple, no JVD, trachea midline LUNGS: Clear breath sounds bilaterally. No wheezes HEART: Regular rate and rhythm. Normal S1 and S2, without murmurs ABD: Abdomen soft, nontender. Bowel sounds present EXT: No clubbing cyanosis or edema NEURO: Alert and oriented to person, follows commands Vital Signs (last 8hr) Date Time Temp Pulse Resp B/P (MAP) Pulse Ox O2 Delivery O2 Flow Rate FiO2 11/16/24 12:00 98.4 68 18 145/57 96 Room Air 11/16/24 08:00 99.7 68 18 159/74 97 Room Air LABS: Hematology Labs: Test 11/16/24 05:00 Range/Units White Blood Count 6.1 4.8-10.8 K/uL Red Blood Count 2.95 L 4.50-6.20 MIL/uL Hemoglobin 9.5 L 14.0-18.0 g/dL Hematocrit 29.7 L 42-54 % Mean Corpuscular Volume 100.7 H 79-99 fL Mean Corpuscular Hemoglobin 32.2 27.0-33.0 pg Mean Corpuscular Hemoglobin Concent 32.0 32.0-36.0 g/dL Red Cell Distribution Width 14.6 11.0-15.5 % Platelet Count 154 130-400 K/uL Mean Platelet Volume 9.6 7.5-10.5 fL Nucleated Red Blood Cells 0.0 0.0-0.19 % Chemistry Labs: Test 11/16/24 05:00 11/15/24 08:16 11/14/24 19:44 Range/Units Sodium Level 143 136-145 mmol/L Potassium Level 3.7 3.5-5.1 mmol/L Chloride Level 110 101-111 mmol/L Carbon Dioxide Level 25 21-32 mmol/L Blood Urea Nitrogen 15 7-18 mg/dL Creatinine 0.7 0.5-1.3 mg/dL Glomerular Filtration Rate Calc 93 >90 mL/min Random Glucose 87 70-105 mg/dL Total Calcium 7.3 L 8.5-10.1 mg/dL Magnesium Level 1.70 L 1.80-2.40 mg/dL C-Reactive Protein, Quantitative 107.50 H 0.5-3.0 mg/L Lactic Acid Level 0.9 0.8-2.5 mmol/L Whole Blood Glucose 131 H 70-110 MG/DL DIAGNOSTICS / RADIOLOGY RESULTS: na PLAN NEURO: Minimize central acting medications as possible. Maintain fall precautions, adequate lighting during the day PULMONARY: Supplemental 02 as needed. Maintain aspiration precautions at all times CARDIOVASCULAR: Follow hemodynamics. Vital signs per facility protocol GI & NUTRITION: Continue with nutritional support. Continue stool softeners and laxatives as needed. KIDNEYS & ELECTROLYTES: Strict monitoring of intake, output and overall fluid balance. Avoid nephrotoxic medications to the extent possible. Medications to be dosed according to renal function. Monitor electrolytes and replace as needed ENDOCRINE: Maintain blood glucose between 100-180 at all times. Hypoglycemia protocol in place INFECTIOUS DISEASE: Trend temperature, WBC and procalcitonin level Follow cultures, deescalate antibiotics as soon as possible. Panculture if new onset fever ONCOLOGY/HEMATOLOGY/COAGULATION: Monitor for s/s of bleeding Monitor hemoglobin, coagulation studies as needed SKIN: Pressure ulcer prevention per facility protocol Specialty mattress ORTHO/REHAB: Continue PT/OT Prophylaxis: Continue GI and DVT prophylaxis Code Status: Full Resuscitation Disposition: Per primary team Other: Case discussed with supervising physician plan of care agreed upon MIGEL TIWARI Nov 16, 2024 14:35
[2024-11-16] MEDS ORDERED: PRED-409 PO (15:52)
[2024-11-16] MEDS ORDERED: CARB1TAB35 PO (15:52)
[2024-11-16] MEDS ORDERED: AMOX-426 PO (17:29)
--- NOTE | 2024-11-16 17:30 | NUR ---
DISCHARGE RIGHT UPPER ARM MIDLINE REMOVED PATIENT AND FAMILY GIVEN DISCHARGE PACKET WITH FOLLOW UP APPOINTMENTS FAMILY INFORMED THAT MEDICATIONS WERE SENT TO [facility] ALL QUESTIONS ANSWERED PRIOR TO DISCHARGE
--- NOTE | 2024-11-16 17:38 | DS ---
Discharge Summary Hospital Course Summary: This is a 79-year-old male with a history of hypertension, hyperlipidemia and metastatic prostate cancer who presented with hypotension and generalized weakness. Initial evaluation revealed mild dehydration, and acute kidney injury likely secondary to volume depletion which improved with IV fluids. ECG showed sinus rhythm with repolarization abnormalities and initial labs revealed mild anemia and elevated alkaline phosphatase consistent with bone metastasis. During hospitalization the patient's course was complicated by recurrent hypotensive episodes including 1 that required ICU transfer and Levophed vasopressor support. Given history of chronic prednisone use for prostate cance r, morning cortisol levels were ordered which came back low, suspecting adrenal insufficiency, his prednisone dose was increased to 7.5 mg daily. Workup for anemia revealed a positive FOBT. EGD as per gastroenterology consult demonstrated acute gastritis and reflux esophagitis without active bleeding. A colonoscopy was initially planned but canceled due to hypotension. Later, chest imaging showed left basilar consolidation and mild bilateral ground-glass opacities suggestive of infection for which antibiotics were changed from Rocephin to cefepime and doxycycline. His CRP trended upward initially but the patient remained afebrile and hemodynamically stable with improving inflammatory markers. Neurologically, he exhibited bilateral resting tremors and rigidity and he was started on carbidopa levodopa for suspected Parkinson's disease. Marked improvement in his symptoms were noted over the course of next days. IRISH and electrolyte abnormalities including hypokalemia and hyponatremia resolved with appropriate management. A modified barium swallow study showed no aspiration and diet was adjusted to pureed Solids with thickened liquids. At the time of discharge, the patient was clinically stable, afebrile and tolerating oral intake. He is being discharged home as family requested no SNF placement. Patient is being discharged on Augmentin, carbidopa levodopa, prednisone 7.5 mg daily and other home medications with recommendations for close outpatient follow up. Fire Captain Marine(s): GASTROENTEROLOGY CONSULTATION NOTE Date of Consultation: Nov 08, 2024 Time of Consultation: 16:45 Assessment: [Melena Concern for GI bleed Anemia Hypertension] Plan: [Case discussed with Dr. Kelly [Clear fluids for dinner Npo after midnight Plan for EGD in am. Information with risks and benefits of procedure given to patient. All his questions were answer and he agreed to proceed with exam. Continue with Pantoprazole 40mg IV. Please call with questions, concerns, and change in clinical status Thank you for allowing us to be part of this patient's care ] DALE NELSON MET[employer]PLATE MAKER Nov 08, 2024 16:47 GASTROENTEROLOGY CONSULTATION REASON FOR CONSULTATION: GI bleed with hemoccult positive stools, acute anemia and chronic constipation. IMPRESSION: 1. 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 2. Chronic constipation possible from sedentary lifestyle, lack of fiber intake, colon polyp, colon stricture, or colon cancer. 3. Hypertension. 4. Hyperlipidemia. 5. Prostate cancer metastatic to bone. PLAN: 1. Keep on a clear liquid diet. 2. Anti-reflux measures. 3. Recommend EGD for further evaluation and management. 4. Recommend a colonoscopy also. 5. Continue to monitor CBC. Transfuse PRBC as needed to hemoglobin of 7. Dr. Bacon, thank you for allowing me to participate in the care of this patient. TID: [id number] RECEIPT: [id number] cc: Marcelino Bacon MD, Sachin Pino MD Electronically Signed by: JENNIFER JACKSON MD11/14/24 1528 Electronically Co-Signed by: [facility] CONSULTATION NOTE Date Patient Seen: Nov 12, 2024 Time of Visit: 10:14 Supervising Physician: Dr Mack Calhoun Reason for Consultation: ICU medical management PROBLEM LIST: Hypotensin Acute kidney injury POA Normocytic normochromic anemia POA Positive fecal occult blood Swelling of left fingers Hypertension POA Hypernatremia Hypokalemia Transient hypotension-improved POA Hyperlipidemia POA Prostate cancer POA Chronic back pain with surgeries x3 POA Aortic valve replacement POA Constipation POA Right eye artificial implant POA HPI: 79 year old male past medical history of hypertension, hyperlipidemia, prostate cancer with past surgical history of back surgery times X3, right eye artificial implant and AVR who was brought by EMS coming from [facility] for complaints of hypotension and generalized body weakness. Daughter was at bedside during my evaluation and states that patient has been doing fine and had a follow-up appointment yesterday at the [facility] and today he has another appointment with his primary care doctor at the [facility] and for the past two days patient has been getting up early in the morning not get much rest as per daughter. US doppler of both upper limbs and it showed no evidence of DVT. He underwent a endoscopy today which showed acute gastritis, LA Grade B reflux esophagitis with no bleeding, normal duodenal bulb and 2nd portion of duodenum. Gastroenterology recommended to start clear liquid diet for today, he uses omeprazole 40 mg p.o. daily for 8 weeks, follow up with them in 2 weeks and colonoscopy in 2 days. scheduled for colonoscopy today for positive FOBT but it could not happen because of inadequate bowel preparation. Patient becoming hypotensive overnight, transferred to the ICU, receiving fluids and starting on pressors. Patient's white count has dropped to 6.4, hemoglobin 9.6 in his platelets are 149. Patient's is now off pressors, vital signs are stable. He is afebrile. PLAN Patient cleared for downgrade, off pressors Cultures no growth Continue antibiotics, follow specialty recs QUITA SALOMON Nov 12, 2024 10:20 Electronically Signed by: QUITA MARIN11/12/24 1022 Electronically Co-Signed by: MACK CALHOUN MD11/12/24 1256 [facility] PROGRESS NOTE Date Patient Seen: Nov 16, 2024 Time of Visit: 1025 Supervising Physician: Dr. RAE 11/16 patient was seen and examined at bedside with family present. Patient remains on room air is tolerating well. At time of visit patient has no specific complaints. As per family they are wishing to be discharged home when medically cleared. Did advise patient and family member from a pulmonary standpoint patient is cleared for discharge. We will just need to follow up with 4-6 weeks to have CTA of the chest repeated. And to follow up with Dr. Javier encinas loader technician within one week. Dispo per primary team Plan summary Continue to monitor respiratory status and maintain adequate oxygenation Patient will require a repeat CT scan without contrast within 4-6 weeks upon discharge Patient will need to follow up with loader technician Dr. Dupont upon discharge within 3-5 days Maintain adequate oxygenation Keep O2 sats greater or equal to 90% Continue with current IV antibiotics Dispo per primary team MIGEL TIWARI Nov 16, 2024 14:35 Electronically Signed by: MIGEL TIWARI FN [id number] Procedure(s): PATIENT: JEANINE VILLALTA MR#: [id number] : 1945 SEX: M AGE: 79 LOCATION: [facility] ORDER 22 STATUS: ADM IN REPORT#: [id number] SERVICE 21 REASON: atelectasis L:LL ORDERING PHYSICIAN: MACK CALHOUN MD PROCEDURE: CHEST WO - CT CHEST W/O CONTRAST EXAMINATION: CT EXAMINATION OF THE CHEST WITHOUT CONTRAST CLINICAL HISTORY: Atelectasis left lower lobe. TECHNIQUE: Thin collimated axial CT images of the chest were obtained with sagittal and coronal reformatted images also submitted for interpretation. The total dose length product has been recorded in the electronic medical record. COMPARISON: None. FINDINGS: Central airways are patent. Chronic obstructive pulmonary disease changes. Subpleural linear scarring with fibroatelectatic bands in both lower lobes. Mild ground glass opacities in both upper lobes (series 3, image 20). There is no suspicious pulmonary nodule. There is no pleural or pericardial effusion. 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 There are atheromatous wall calcification of the aorta and coronary arteries. The ascending aorta measures 3.2 x 3.1 cm. There are subcentimetre precarinal and prevascular lymph nodes. There is no axillary or supraclavicular lymphadenopathy. Hilar jasmine stations are inadequately assessed without intravenous contrast. There is no focal thyroid abnormality. Limited noncontrast views of the upper abdomen demonstrate no acute findings. There is multilevel moderate degenerative spondylosis. Mild bibasilar dependent atelectasis. Multiple sclerotic osseous throughout the spine and the ribs with likely represent metastasis. IMPRESSION: Mild ground glass opacities in both upper lobes ??? likely mild infection. Chronic obstructive pulmonary disease changes. Subpleural linear scarring with fibroatelectatic bands in both lower lobes. Multiple sclerotic osseous throughout the spine and the ribs with likely represent metastasis. /[facility] DICTATED BY: RANID CHUNG MD DATE: 11/13/241304 ELECTRONICALLY SIGNED BY: RANDI CHUNG MD DATE: 11/13/241304 PATIENT: JEANINE VILLALTA MR#: [id number] : 1945 SEX: M AGE: 79 LOCATION: [facility] ORDER 43 STATUS: ADM IN REPORT#: [id number] SERVICE 1142 REASON: asses cardiac function ORDERING PHYSICIAN: SHARON LORENZO MD PROCEDURE: ECHO CMP - ECHO 2-D COMPLETE APPROVED REPORT EXAM: Two-dimensional and M-mode echocardiogram with Doppler and color Doppler. INDICATION ICD: assess cardiac function 2D Dimensions RVDd 3.1 cm LVEF(%) 63.4 (>50%) LVED Vol(simp.) 126.0 mL IVSd 1.2 (0.7-1.1cm) FS(%) 34 % LVES Vol(simp.) 61.0 mL LVDd 4.8 (3.8-5.6cm) LA (2D) 3.5 (1.6-4.0cm) LVEF(%, simp.) 52 % PWd 1.0 (0.7-1.1cm) Ao Root(2D) 2.9 (2.0-3.7cm) LA ESV INDEX (BP) 33.79 mL/m2 LVDs 3.1 (2.5-4.0cm) LVOT diam 2.0 (1.8-2.4cm) Deformation Strain Apical 4 -15.7 % Apical 2 -16.2 % Apical 3 -16.4 % Global Strain -16.1 % M-Mode Dimensions EPSS 0.8 cm LA (MM) 3.6 (1.6-4.0cm) Ao Root(MM) 3.0 (2.0-3.7cm) Aortic Valve AoV Vmax 3.7 m/s Ao Peak GR 55.1 mmHg LVOT Vmax 1.2 m/s AoV VTI 0.8 m Ao Mean GR 33.0 mmHg LVOT VTI 0.26 m SABIHA (VMAX) 1.03 cm2 Al P1/2T 307 ms SABIHA (VTI) 1.1 cm2 Mitral Valve MV E Vmax 60.7 cm/s DECEL Time 172 ms MV A Vmax 82.5 cm/s P 1/2 T 45 ms E/A ratio 0.7 MVA (PHT) 4.8 cm2 TDI E/E' Medial 9.4 E/E' Lateral 6.1 Medial E' Peak V 6.49 cm/s Lateral E' Peak V 9.88 cm/s Pulmonary Valve PV Vmax 1.1 m/s PV VTI 0.19 m PV Mean GR 2.7 mmHg PV Peak GR 4.5 mmHg Left Ventricle The left ventricle structure is normal in size. There is paradoxical septal wall motion noted. The other ruth are grossly normal in function. Mild concentric left ventricular hypertrophy. Left ventricular systolic function is normal, estimated LVEF is 55 to 60%. Grade 1 diastolic dysfunction. Right Ventricle The right ventricle is normal size. The right ventricular systolic function is normal. Atria The left atrium is mildly dilated, 34 mL/m. The right atrium size is normal. Aortic Valve The aortic valve has been replaced by a well-seated bioprosthetic valve. There is trivial perivalvular leak noted. Mild aortic regurgitation. 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 The leaflets are mildly thickened and calcified. Trace mitral regurgitation. There is no mitral valve stenosis. Tricuspid Valve The tricuspid valve is normal in structure and function. Trace tricuspid regurgitation. RVSP is normal. Pulmonic Valve Pulmonic valve is not well visualized. Great Vessels The aortic root is normal in size. The IVC was not visualized. Pericardium No pericardial effusion. Conclusion The left atrium is mildly dilated, 34 mL/m. Mild concentric left ventricular hypertrophy. There is paradoxical septal wall motion noted. The other ruth are grossly normal in function. Left ventricular systolic function is normal, estimated LVEF is 55 to 60%. Grade 1 diastolic dysfunction. The aortic valve has been replaced by a well-seated bioprosthetic valve. There is trivial perivalvular leak noted. Mild aortic regurgitation. 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 Trace tricuspid regurgitation. RVSP is normal. No pericardial effusion. DICTATED BY: QUITA SPRINGER MD DATE: 11/12/24 1412 ELECTRONICALLY SIGNED BY: QUITA SPRINGER MD DATE: 11/13/24 0100 PATIENT: JEANINE VILLALTA MR#: [id number] : 1945 SEX: M AGE: 79 LOCATION: [facility] ORDER 1144 STATUS: ADM IN HOSPITAL REPORT#: [id number] SERVICE 1142 REASON: elevated BNP, concern for CHF ORDERING PHYSICIAN: SHARON LORENZO MD PROCEDURE: CXR1VW - CHEST 1VW EXAM: CR Chest, 1 View. CLINICAL HISTORY: elevated BNP, concern for CHF COMPARISON: November 06, 2024 FINDINGS: LUNGS: Left basilar consolidation and pleural effusion was noted. PLEURAL SPACES: Moderate left effusion. Right PICC line is in the right axillary region MEDIASTINUM: Cardiac size and mediastinal contours within normal limits. BONES: No aggressive appearing osseous lesion seen. IMPRESSION: Left basilar consolidation and pleural effusion /[place] DICTATED BY: MILTON CHU MD DATE: 11/12/241710 ELECTRONICALLY SIGNED BY: MILTON CHU MD DATE: 11/12/241710 PATIENT: JEANINE VILLALTA MR#: [id number] : 1945 SEX: M AGE: 79 LOCATION: [facility] ORDER 1005 STATUS: ADM IN REPORT#: [id number] SERVICE 1003 REASON: right arm swelling ORDERING PHYSICIAN: SHARON LORENZO MD PROCEDURE: VENOUS MARC - US VENOUS DOPPLER BILATERAL US VENOUS DOPPLER BILATERAL REASON: right arm swelling COMPARISON: None Technique: Bilateral venous doppler ultrasound was performed with spectral analysis and color flow imaging technique. FINDINGS: There is a normal appearance of the common femoral, deep femoral, the profunda femoris and popliteal veins. Proximal calf veins appear normal as well. There is normal response to compression and augmentation. There is no evidence of deep venous thrombosis. IMPRESSION: Normal bilateral lower extremity venous Doppler ultrasound. DICTATED BY: GIULIANA WHITNEY MD DATE: 11/08/24 1207 ELECTRONICALLY SIGNED BY: GIULIANA WHITNEY MD DATE: 11/08/24 1210 PATIENT: JEANINE VILLALTA MR#: [id number] : 1945 SEX: M AGE: 79 LOCATION: [facility] ORDER 37 STATUS: REG ER REPORT#: [id number] SERVICE 36 REASON: CHEST PAIN/SOB ORDERING PHYSICIAN: BINTA GELLER NP PROCEDURE: CXR1VW - CHEST 1VW EXAM: CR Chest, 1 View. CLINICAL HISTORY: CHEST PAIN/SOB COMPARISON: X-ray chest 03/20/2012 FINDINGS: LUNGS: The lungs show no infiltrate or other acute finding. PLEURAL SPACES: No pleural effusion or pneumothorax. MEDIASTINUM: The cardiomediastinal silhouette is within normal limits. Changes of median sternotomy BONES: No aggressive appearing osseous lesion seen. IMPRESSION: No acute cardiopulmonary pathology is evident. /[place] DICTATED BY: PAULINE ARANA MD DATE: 11/06/241655 ELECTRONICALLY SIGNED BY: PAULINE ARANA MD DATE: 11/06/241655 Assessment/Plan: ASSESSMENT: Acute kidney injury POA, resolved Debility Adrenal insufficiency Normocytic normochromic anemia POA Resting tremor, suspected parkinson's Suspected pneumonia Positive fecal occult blood Swelling of left fingers Hypertension POA Hypernatremia Hypokalemia Hypotension-improved POA Hyperlipidemia POA Prostate cancer POA Chronic back pain with surgeries x3 POA Aortic valve replacement POA Constipation POA Right eye artificial implant POA Discharge Instructions: Follow up with loader technician Dr. Dupont within one week upon discharge. The patient will be scheduled for a repeat CT of the chest in 4-6 weeks upon discharge. Please follow up with PCP within 1 week upon discharge to discuss changes to medications. Additionally, you need an appointment with neurologist for further evaluation of resting tremors and rigidity. For your diet, please follow: Pureed solids, moderately thick liquids via tsp, and pills crushed with pureed. Continue carbidopa levodopa 25-100mg. Continue prednisone 7.5 mg daily Home Medications: Active Scripts Amoxicillin/Potassium Clav (Augmentin 500-125 Tablet) 500 Mg-125 Mg Tablet, 1 TAB PO BID for 7 Days, #14 TAB 0 Refills Prov:SHARON LORENZO MD 11/16/24 Prednisone (Deltasone / Orasone) 5 Mg Tablet, 7.5 MG PO DAILY, #30 TAB 0 Refills Prov:SHARON LORENZO MD 11/16/24 Carbidopa/Levodopa (Carbidopa-Levodopa 25-100 Tab) 25 Mg-100 Mg Tablet, 1 EACH PO TID for 30 Days, #90 TAB 0 Refills Prov:SHARON LORENZO MD 11/16/24 Reported Medications Morphine Sulfate (Morphine Sulfate ER) 15 Mg Tablet.er, 15 MG PO BID, TAB 11/07/24 Clopidogrel Bisulfate (Clopidogrel) 75 Mg Tablet, 1 TAB PO DAILY for 30 Days, #30 TAB 0 Refills 11/07/24 Atorvastatin Calcium (Atorvastatin Calcium) 40 Mg Tablet, 1 TAB PO DAILY for 30 Days, #30 TAB 0 Refills 11/07/24 Hydrocodone/Acetaminophen (Hydrocodon-Acetaminophen 5-325) 5 Mg-325 Mg Tablet, 1 TAB PO [id number] PRN for pain for 30 Days, #60 TAB 0 Refills 11/07/24 Lorazepam (Lorazepam) 2 Mg/Ml Oral.conc, 0.5 MG PO HS, ML 11/07/24 Sennosides (Senna) 8.6 Mg Tablet, 1 TAB PO HS for constipation for 25 Days, #100 TAB 0 Refills 11/07/24 Fluoxetine HCl (Fluoxetine HCl) 20 Mg Tablet, 1 TAB PO HS for 30 Days, #30 TAB 0 Refills 11/07/24 Fluoxetine HCl (Fluoxetine HCl) 40 Mg Capsule, 1 CAP PO AM for 30 Days, #30 CAP 0 Refills 11/07/24 Metoprolol Succinate (Metoprolol Succinate) 100 Mg Tab.er.24h, 1 TAB PO DAILY for 30 Days, #30 TAB 0 Refills 11/07/24 Mirtazapine (Mirtazapine) 30 Mg Tablet, 1 TAB PO HS for 30 Days, #30 TAB 0 Refills 11/07/24 Docusate Sodium (Docusate Sodium) 100 Mg Capsule, 1 CAP PO BID for constipation for 7 Days, #14 CAP 0 Refills 11/07/24 Omeprazole (Omeprazole) 20 Mg Capsule.dr, 1 CAP PO DAILY for 30 Days, #30 CAP 0 Refills 11/07/24 Buspirone HCl (Buspirone HCl) 10 Mg Tablet, 1 TAB PO QID for 30 Days, #60 TAB 0 Refills 11/07/24 Melatonin/Pyridoxine (Melatonin 5 mg Tablet) 5 Mg-1 Mg Tablet, 1 EACH PO AD, TAB 11/07/24 Tamsulosin HCl (Flomax) 0.4 Mg Cap.er.24h, 0.4 MG PO HS 11/07/24 Discontinued Reported Medications Prednisone (Prednisone) 5 Mg Tablet, 2 TAB PO DAILY for 30 Days, #30 TAB 0 Refills 11/07/24 Isosorbide Mononitrate (Isosorbide Mononitrate) 20 Mg Tablet, 60 MG PO AM, TAB 11/07/24 Ramipril (Ramipril) 10 Mg Capsule, 1 CAP PO DAILY 11/07/24 New Medications: Amoxicillin/Potassium Clav (Augmentin 500-125 Tablet) 500 Mg-125 Mg Tablet 1 TAB PO BID for 7 Days, #14 TAB 0 Refills Carbidopa/Levodopa (Carbidopa-Levodopa 25-100 Tab) 25 Mg-100 Mg Tablet 1 EACH PO TID for 30 Days, #90 TAB 0 Refills Prednisone (Deltasone / Orasone) 5 Mg Tablet 7.5 MG PO DAILY, #30 TAB 0 Refills Continued Medications: Atorvastatin Calcium (Atorvastatin Calcium) 40 Mg Tablet 1 TAB PO DAILY for 30 Days, #30 TAB 0 Refills Buspirone HCl (Buspirone HCl) 10 Mg Tablet 1 TAB PO QID for 30 Days, #60 TAB 0 Refills Clopidogrel Bisulfate (Clopidogrel) 75 Mg Tablet 1 TAB PO DAILY for 30 Days, #30 TAB 0 Refills Docusate Sodium (Docusate Sodium) 100 Mg Capsule 1 CAP PO BID for constipation for 7 Days, #14 CAP 0 Refills Fluoxetine HCl (Fluoxetine HCl) 40 Mg Capsule 1 CAP PO AM for 30 Days, #30 CAP 0 Refills Fluoxetine HCl (Fluoxetine HCl) 20 Mg Tablet 1 TAB PO HS for 30 Days, #30 TAB 0 Refills Hydrocodone/Acetaminophen (Hydrocodon-Acetaminophen 5-325) 5 Mg-325 Mg Tablet 1 TAB PO [id number] PRN for pain for 30 Days, #60 TAB 0 Refills Lorazepam (Lorazepam) 2 Mg/Ml Oral.conc 0.5 MG PO HS, ML Melatonin/Pyridoxine (Melatonin 5 mg Tablet) 5 Mg-1 Mg Tablet 1 EACH PO AD, TAB Metoprolol Succinate (Metoprolol Succinate) 100 Mg Tab.er.24h 1 TAB PO DAILY for 30 Days, #30 TAB 0 Refills Mirtazapine (Mirtazapine) 30 Mg Tablet 1 TAB PO HS for 30 Days, #30 TAB 0 Refills Morphine Sulfate (Morphine Sulfate ER) 15 Mg Tablet.er 15 MG PO BID, TAB Omeprazole (Omeprazole) 20 Mg Capsule.dr 1 CAP PO DAILY for 30 Days, #30 CAP 0 Refills Sennosides (Senna) 8.6 Mg Tablet 1 TAB PO HS for constipation for 25 Days, #100 TAB 0 Refills Tamsulosin HCl (Flomax) 0.4 Mg Cap.er.24h 0.4 MG PO HS Discontinued Medications: Isosorbide Mononitrate (Isosorbide Mononitrate) 20 Mg Tablet 60 MG PO AM, TAB Linaclotide (Linzess) 290 Mcg Capsule 1 CAP PO DAILY Prednisone (Prednisone) 5 Mg Tablet 2 TAB PO DAILY for 30 Days, #30 TAB 0 Refills Ramipril (Ramipril) 10 Mg Capsule 1 CAP PO DAILY Time spent arranging discharge: 31-60 minutes ATTESTATION BY PHYSICIAN I have seen and examined the patient. I reviewed the documentation, medical decision making, and treatment plan as noted by the resident provider above. I agree with the findings and plan of care. ALISSA RODRIGEZ MD, MUHAMMAD H MD Nov 16, 2024 17:38
== END 2024-11-16 17:16 | disposition home or self-care (01) | DRG 377 ==
LOC: EDH 14:32 → EDHIP 19:16 → 4BH 11-07 21:16 → 2CH 11-11 16:56 → 3CH 11-12 11:07
PROVIDERS: ADMIT Internal Medicine; ATTEND Internal Medicine
PROC: 0DJ08ZZ Inspection of Upper Intestinal Tract, Via Natural or Artificial Opening Endoscopic (ICD-10-PCS; principal; 2024-11-09)
PROC: 05HY33Z Insertion of Infusion Device into Upper Vein, Percutaneous Approach (ICD-10-PCS; 2024-11-11)
DX: K29.01 Acute gastritis with bleeding (principal); J18.9 Pneumonia, unspecified organism; C79.51 Secondary malignant neoplasm of bone; N17.9 Acute kidney failure, unspecified; E87.0 Hyperosmolality and hypernatremia; D62 Acute posthemorrhagic anemia; E27.40 Unspecified adrenocortical insufficiency; E87.1 Hypo-osmolality and hyponatremia; K62.7 Radiation proctitis; K21.01 Gastro-esophageal reflux disease with esophagitis, with bleeding; E78.5 Hyperlipidemia, unspecified; N18.31 Chronic kidney disease, stage 3a; I12.9 Hypertensive chronic kidney disease with stage 1 through stage 4 chronic kidney disease, or unspecified chronic kidney disease; G89.29 Other chronic pain; K59.00 Constipation, unspecified; E87.6 Hypokalemia; K59.09 Other constipation; I95.9 Hypotension, unspecified; J44.9 Chronic obstructive pulmonary disease, unspecified; D63.1 Anemia in chronic kidney disease; C61 Malignant neoplasm of prostate; E83.51 Hypocalcemia; I08.0 Rheumatic disorders of both mitral and aortic valves; E86.0 Dehydration; Z80.0 Family history of malignant neoplasm of digestive organs; Z87.891 Personal history of nicotine dependence; Z92.3 Personal history of irradiation; Z95.2 Presence of prosthetic heart valve
CPT/HCPCS: 36415; 43235; 71045; 71250; 74230; 80048; 80051; 80053; 81001; 82270; 82306; 82310; 82533; 82550; 82570; 82948; 82977; 83540; 83550; 83605; 83735; 83880; 84075; 84100; 84153; 84156; 84484; 85025; 85027; 86140; 87040; 87086; 92610; 92611; 93005; 93306; 93970; 96365; 96366; 99285; A4606; A6250; G0378; J0360; J0612; J0692; J0696; J1171; J2003; J2270; J2405; J2470; J2704; J3475; J3480; J3490; J7030; J7120; J7512; A4215; A4222; A4223; A4620